=== PATIENT | female | born 1950 ===

== ENCOUNTER 2020-09-01 15:08 | Inpatient (IN) | payer MEDICARE, MEDICAID ==
[~2020-09-01] VITALS: Ht 175.3 cm; Wt 81.6 kg
[2020-09-01] MEDS ORDERED: ZYPREXA IM PRN (16:00)
[2020-09-01] MEDS ORDERED: VISTARIL IM PRN (16:00)
[2020-09-01] MEDS ORDERED: PROP15DR OP (16:51)
[2020-09-01] MEDS ORDERED: DIVA250T PO (16:51)
[2020-09-01] MEDS ORDERED: MIRT15TA94 PO (16:51)
[2020-09-01] MEDS ORDERED: ACET325T24 PO (16:51)
[2020-09-01] MEDS ORDERED: ZINC50TA42 PO (16:51)
[2020-09-01] MEDS ORDERED: FAMO-75 PO (16:51)
[2020-09-01] MEDS ORDERED: AMLO-169 PO (16:51)
[2020-09-01] MEDS ORDERED: DONE5TAB53 PO (16:51)
[2020-09-01] MEDS ORDERED: LEVO25TA4 PO (16:51)
[2020-09-01] MEDS ORDERED: ASCO500C PO (16:51)
[2020-09-01] MEDS ORDERED: CHOL500045 PO (16:51)
[2020-09-01] MEDS ORDERED: INSU100V8 SQ (16:51)
[2020-09-01] MEDS ORDERED: DULO60CA7 PO (16:51)
[2020-09-01] MEDS ORDERED: ASPI-929 PO (16:51)
--- NOTE | 2020-09-01 18:31 | NUR ---
Admission Note/Arrival to floor 1315: Patient arrived to the unit in a wheelchair with mobile security specialist and INSTRUMENTATION AND CONTROL TECHNICIAN at her side. Patient refused Vital signs initially then complied. Patient has been exit seeking and wandering the unit. Has refused to allow RN to complete an admit physical assessment. Threw a cup of water on this RN, surprised at the nonreaction she received at which time she apologized. Threatened to "Kick any male between the legs so he could not have babies." Called Several female staff a "bitch." Threw water on Cintia GANT. Demands to know why she is here, who the doctor is and why she should do what we say. This RN called patient's son/guardian to obtain consents. Admission diagnosis Delusional Disorder. Patient has a history of borderline personality disorder, alzheimers, self harm, multiple admits in the last 5 years to psyche units. Dc plan back to nursing facility, however her Guardian would like her to go to a state mental health facility. Most of admission documented using the medical record. Patient confused, poor short term memory. Psychiatrist and Hospitalist notified of patient's arrival to unit.
[2020-09-01] MEDS ORDERED: NITR100C58 PO (19:57)
[2020-09-01 20:00] VITALS: BP 142/65
[2020-09-01] MEDS ORDERED: VITAMIN D ONE (20:38)
[2020-09-01] MEDS ORDERED: ARICEPT ODT ONE (20:38)
--- NOTE | 2020-09-01 20:38 | PRM.CONS ---
CONSULTATION CONSULTATION DATE OF consult :09/01/2020. Reason for consult:Medical comanagement. HISTORY OF PRESENT ILLNESS: This is 70 years old white female with history of multiple psychiatric issues in the past presented with aggressive/violent behavior and admitted for further psychiatric evaluation and management. Internal medicine consulted for medical management. ALLERGIES: Hypertension. HOME MEDICATIONS: Aspirin 81 mg p.o. daily. Levothyroxine 25 mcg p.o. daily. Amlodipine 5 mg p.o. daily. Levothyroxine 25 mcg p.o. daily needed. Lantus to 12 units subcu daily. Depakote extended release to 50 mg p.o. daily. Famotidine 20 mg p.o. daily. Cymbalta 60 mg p.o. daily. Donepezil 5 mg p.o. daily. PAST MEDICAL HISTORY: DM2. Dementia. Hypertension. Hypothyroidism. Diabetic Neuropathy. Bipolar disorder. MDD. SOCIAL HISTORY: She denied alcohol misuse, no illicit drugs. She also denied history of smoking. FAMILY HISTORY: No history of cancer in the family. REVIEW OF SYSTEMS: - CONSTITUTIONAL: Denies weight loss, fever and chills. - HEENT: Denies changes in vision and hearing. - RESPIRATORY: no SOB and cough. - CV: Denies palpitations and CP. - GI: Denies abdominal pain, nausea, vomiting or change bowel habits. - : Denies dysuria and urinary frequency. - MSK: Denies myalgia but he has chronic joint pain. - SKIN: Denies rash and pruritus - NEUROLOGICAL: Denies headache and syncope. PHYSICAL EXAMINATION: Vital Signs Date Time Temp Pulse Resp B/P (MAP) Pulse Ox O2 Delivery O2 Flow Rate FiO2 09/01/20 19:28 98.1 96 20 142/65 97% Room Air - GENERAL:no in distress. oriented to self and time but not to place or situation.alert. - EYES: EOMI. Anicteric. - HENT: moist mucous membranes. No scleral icterus. No cervical lymphadenopathy. - LUNGS: normal air entry bilateraly, Clear to auscultation bilaterally. No accessory muscle use. - CARDIOVASCULAR: Regular rate and rhythm. No murmur. No JVD. - ABDOMEN: Soft, non-tender,distended. - EXTREMITIES: No edema. Non-tender. - NEUROLOGIC: No focal neurological deficits. CN II-XII grossly intact. - PSYCHIATRIC: Cooperative. anxious. LABORATORY DATA: Outside labs were reviewed today showed WBC of 6.6, hemoglobin 11.9, platelet count of 352. BMP showed sodium 137, potassium 3.2, chloride 107, glucose 157, BUN 13, creatinine 1.15, LFT were normal, calcium 9.6.Troponin is negative. GARIMA globin A1c 7.27. Urinalysis showed cloudy urine negative for nitrite WBC of 16-20 per field. Assessment and plan: 70 years old female with history of dementia and bipolar disorder presented with progressive behavior. #History of hypertension: Controlled. Continue home medications. #History of hypothyroidism: Will continue same dose of 25 mcg daily. TSH in a.m. #History of diabetes mellitus type 2: Hemoglobin A1c is within target for her age. Continue Lantus 12 units in the morning. We will add Metformin extended release 750 mg p.o. daily. #Diabetic neuropathy: She is on Cymbalta at home. We will hold the medication at this moment as she is on antipsychotic medication. Decision to continue Cymbalta will be deferred to the psychiatrist. LIZZIE GOLDSTEIN MD Sep 01, 2020 20:38
[2020-09-01] MEDS: VITAMIN D PO SCH (20:40)
[2020-09-01] MEDS: MACROBID PO SCH (20:40)
[2020-09-01] MEDS: PEPCID PO SCH (20:40)
[2020-09-01] MEDS: ARICEPT ODT PO SCH (20:53)
[2020-09-01] MEDS: LANTUS SQ SCH (20:56)
[2020-09-01] MEDS ORDERED: ARICEPT PO SCH (21:00)
--- NOTE | 2020-09-02 05:17 | NUR ---
pirp- P- DTO,ALTERED THOUGHT PROCESS AND ALTERATION IN MOOD I- PROVIDE SAFE AND SUPPORTIVE ENVIRONMENT,PROVIDE MEDICATION ORDERED AND Q 15 MIN. MONITORING. OBSERVED BEHAVIORS. R- PT. ORIENTED TIMES THREE. RATES DEPRESSION 7 AND ANXIETY 8. PT. ATTENDED GROUP AND INTERACTED BUT DID NOT PARTICIPATE IN GAME. ATE SNACKS. PT. ASKED STAFF WHY IS SHE HERE, WHEN CAN SHE LEAVE AND REPEATS THIS FREQUENTLY. DR. North VISITED WITH PT. BUT AN HOUR LATER SHE DID NOT REMEMBER IT. PT. WAS NOT AGGRESSIVE TONIGHT. TOOK MEDICATION ORDERED. PT. RESTING IN BED WITH EYES CLOSED AT THIS TIME. P- WILL CONTINUE TO OBSERVED BEHAVIORS. CONTINUE TO PROVIDE 1:1 INTERVENTION ALLOWING PT. TO EXPRESS THOUGHTS AND FEELINGS. GIVE SIMPLE AND CLEAR INSTRUCTION.
[2020-09-02] MEDS: LEVOTHYROXINE SODIUM PO SCH (06:24)
[2020-09-02 08:17] VITALS: BP 120/65
[2020-09-02] MEDS: NORVASC PO SCH (08:21)
[2020-09-02] MEDS: GLUCOPHAGE PO SCH ×2 (08:21→17:16)
[2020-09-02] MEDS: PEPCID PO SCH ×2 (08:21→20:17)
[2020-09-02] MEDS: MACROBID PO SCH ×2 (08:21→20:17)
[2020-09-02] MEDS: ASPIRIN EC PO SCH (08:21)
[2020-09-02 08:38] LABS: CALCIUM 9.2 mg/dL (8.4-10.5); CARBON DIOXIDE 23.2 mmol/L (20.0-32)
--- NOTE | 2020-09-02 09:41 | NUR ---
TX TEAM PT WAS SEEN BY DR. CROFT VIA TELEMED. RECEIVED ORDERS TO START SCHEDULED ZYPREXA AT HS, SEE EMR.
--- NOTE | 2020-09-02 09:47 | PCM.HP ---
History of Present Illness Hx of Present Illness 70 yo F, admitted to [facility] for worsening mood/aggression. Per report, she was aggressive at [facility], she was transferred here -- when arriving to [place], patient ran off in parking lot, grabbed staff's hair (scratched her face), wouldn't let go until she threw herself in the snow, crawled around in the snow cursing and trying to hurt staff, police called who escorted her into the hospital; pt stated that she had never been handcuffed and carried so said "let's do that." When she arrived to the [facility], she asked for a glass of water, which she threw at the nurse. She received some PRN Zyprexa, which seemed to help with her mood significantly, though after some time her irritability returned. Patient slept well overnight, has been pleasant/cooperative this morning. She does not remember any of the above events, states that everyone here is nice and she hopes that she didn't offend anyone. She thinks she is here for a "regular check in". She denies any significant depressive/manic symptoms, no SI/HI. No psychotic symptoms. No anxiety/OCD/PTSD symptoms. She is oriented to person, but disoriented to time (Sep 2020), place (thinks she's in [place]), and situa tion (thinks she's here for regular check in). E: denies T: denies D: denies Past Psych History: Prior admits: multiple in the last 5 years Past Medical History: DM2 HTN Social History: Was at [facility], admitted there Aug 24 -prior to that was at [facility] on COVID unit for 10 days, and was kicked out of another nursing facility before that Review of Systems Other Mental Status Examination: Gen: Alert, oriented to person, appears stated age, casual dress, good hygiene, good eye contact, cooperative Speech: normal rate/volume, easily understood Mood: euthymic Affect: congruent with mood Intelligence: seems to have some deficits in memory TC: denies SI/HI, denies AVH/paranoia TP: C/L/GD Insight: poor Judgment: poor Allergies: Coded Allergies: heparin (Verified Allergy, Unknown, 09/01/20) in medical record Scheduled Amlodipine Besylate (Amlodipine Besylate), 1 TAB PO DAILY, (Reported) Ascorbic Acid (Vitamin C), 500 MG PO BID, (Reported) Aspirin (Aspirin Ec), 1 TAB PO DAILY, (Reported) Cholecalciferol (Vitamin D3) (Vitamin D3), 1 TABLET PO DAILY24, (Reported) Divalproex Sodium (Depakote Er), 1 TAB PO HS, (Reported) Donepezil Hcl (Aricept), 1 TAB PO HS, (Reported) Duloxetine Hcl (Cymbalta), 1 CAP PO DAILY, (Reported) Famotidine (Pepcid), 1 TAB PO BID, (Reported) Insulin Glargine,Hum.rec.anlog (Lantus), 12 UNIT SQ DAILY24, (Reported) Levothyroxine Sodium (Levothyroxine Sodium), 1 TAB PO DAILY, (Reported) Mirtazapine (Mirtazapine), 1 TAB PO HS, (Reported) Nitrofurantoin Monohyd/M-Cryst (Macrobid 100 Mg Capsule), 1 CAP PO BID, (Reported) Zinc (Zinc), 1 TAB PO QD, (Reported) Scheduled PRN Acetaminophen (Acetaminophen), 2 TAB PO PRN PRN for as needed for mild pain, (Reported) Propylene Glycol/Peg 400 (Systane 0.3-0.4% Eye Drops), 1 DROP OP QID PRN for dry eyes, (Reported) VTE VTE Risk Total Score: 2 VTE Risk Score VTE Risk: Score 0-1 = Low Risk (Aggressive mobilization; early ambulation; no VTE prophylaxis required) Score 2: Moderate Risk (Intermittent/Pneumatic Compression Device OR Lovenox/Heparin/Coumadin) Score 3-4: High Risk (Intermittent/Pneumatic Compression Device AND Lovenox/Heparin/Coumadin) Score > or =5: Highest Risk (Intermittent/Pneumatic Compression Device AND Lovenox/Heparin/Coumadin) VTE VTE Present on Admission: No Currently receiving anticoagul: No VTE Risk Total Score: 2 Exam Vital Signs Vital Signs Date Time Temp Pulse Resp B/P (MAP) Pulse Ox O2 Delivery O2 Flow Rate FiO2 09/02/20 08:21 92 120/65 09/02/20 08:17 98.1 20 92 09/01/20 20:00 Room Air Psych/Mental Status: Other Assessment/Plan Assessment/Plan Assessment/Plan 70 yo F, unknown psych history, admitted to [facility] for worsening mood/aggression. Patient is a poor historian, though she does seem to have responded well to PRN Zyprexa with respect to her mood/aggression, so will schedule a QHS dose. Reviewed R/B/SEs of medications. PVU, agrees with plan. Russell I: Delusional Disorder Neurocognitive Disorder Plan 1) Start Zyprexa 10mg PO QHS for mood 2) Continue PRN Zyprexa/Vistaril 3) Continue behavioral management 4) Appreciate hospitalist assistance with medical issues ALBA CROFT MD Sep 02, 2020 09:47
--- NOTE | 2020-09-02 17:02 | NUR ---
PIRP P: WITHDRAWN, CONFUSION I: Q15 MIN MONITORING, ASSESS FOR DEPRESSION/ANXIETY, ASSESS FOR PSYCHOTIC SYMPTOMS, ASSIST WITH DIFFERENTIATING BETWEEN INTERNAL AND EXTERNAL REALITY, GIVE CLEAR AND SIMPLE INSTRUCTIONS, PROVIDE 1:1 TO ENCOURAGE EXPRESSION OF FEELINGS, PROVIDE TASK-ORIENTED ACTIVITIES, ALTERNATE REST/ACTIVITY, RE-ORIENT TO SURROUNDINGS NEEDED R: PT HAS FLAT AFFECT MAJORITY OF SHIFT, IS PLEASANT WITH APPROACH. HAS ISOLATED TO ROOM AND HAS NOT PARTICIPATED IN GROUP ACTIVITIES. APPETITE AND PO FLUID INTAKE HAS BEEN POOR, PT HAS PREFERRED TO REST IN BED WITH EYES CLOSED. HAS NOT EXHIBITED THREATENING OR COMBATIVE BEHAVIORS, HAS NOT BEEN EXIT-SEEKING. DENIES FEELINGS OF DEPRESSION, ANXIETY, SI/HI. NO HALLUCINATIONS OR DELUSIONS NOTED AT THIS TIME. PT IS ALERT AND ORIENTED TO SELF AND YEAR, HAS BEEN COOPERATIVE WITH HOSE BUILDER AND PHYSICAL ASSESSMENTS. P: PT STARTING SCHEDULED ZYPREXA AT HS
--- NOTE | 2020-09-02 17:11 | NUR ---
SW ASSESSMENTS: PT DID NOT WANT TO PARTICIPATE IN ASSESSMENT. PT IS INVOLUNTARY AND ON COURT PAPERS. PT IS UNABLE TO STAY ON TOPIC AND KEEPS REPEATING THE SAME THING OVER AND OVER. SW TO CONTINUE TO FOLLOW.
[2020-09-02] MEDS: ATARAX PO PRN (18:24)
--- NOTE | 2020-09-02 18:25 | NUR ---
PRN MEDICATION GIVEN PT GIVEN HYDROXYZINE FOR ANXIETY. PT IS UNABLE TO SIT STILL. STATING SHE THINKS SHE JUST GOT HERE AND HER ANXIETY IS BAD. PT STATED SHE WANTED MEDICATION FOR ANXIETY.PT STATED SHE FEELS LIKE SHE WANTS TO HIT SOMEONE IN THE FACE OR DO SOMETHING BAD LIKE ESCAPE.
--- NOTE | 2020-09-02 19:26 | NUR ---
UPDATE ON PT BEHAVIOR AFTER PRN MED GIVEN PATIENT IS STILL VERY CONFUSED AND ANXIOUS. PATIENT IS CONTINUOUSLY ASKING WHAT DATE IT IS, WHERE SHES AT, AND IF HER SON IS AWARE OF HER BEING IN HOSPITAL. PATIENT THINKS SHE IS AT [facility], PATIENT REDIRECTED AND EDUCATED ON HER ARRIVAL AT HOSPITAL AND WHY SHE IS HERE. PATIENT STATED "I FEEL LIKE I'M IN A TIME WARP AND I SHOULD BE WITH MY SON IN [place]." PATIENT REDIRECT TO ROOM DUE TO SAYING SHE IS GOING TO [place]. WILL CONTINUE TO MONITOR PATIENTS BEHAVIOR.
[2020-09-02] MEDS: ARICEPT ODT PO SCH (20:16)
[2020-09-02] MEDS: ZYPREXA ZYDIS SL SCH (20:16)
[2020-09-02] MEDS: LANTUS SQ SCH (20:16)
[2020-09-02] MEDS: VITAMIN D PO SCH (20:17)
[2020-09-02 20:29] VITALS: BP 143/61
--- NOTE | 2020-09-03 02:09 | NUR ---
pirp- P- DTO,ALTERATION IN THOUGHT PROCESS AND ALTERATION IN MOOD I-PROVIDE MEDICATION ORDERED,PROVIDE SAFE AND SUPPORTIVE ENVIRONMENT AND Q 15 MIN. MONITORING. GIVE CLEAR AND SIMPLE INSTRUCTIONS. R- PT. ASKED FREQUENTLY WHY IS SHE HERE AND STATES SHE IS WORRIED ABOUT HER AND HER SON NOT HAVING A PLACE TO LIVE. PT. WAS PROVIDED REORIENTATION BUT SOON ASKED SAME QUESTIONS AGAIN. DECLINED TO ATTEND GROUP OR EAT A SNACK. TOOK MEDICATION ORDERED. NO AGGRESSION NOTED THIS SHIFT. RESTING IN BED WITH EYES CLOSED AT THIS TIME. PT. RESTING WITH HEAD AT FOOT OF BED. P- WILL CONTINUE TO PROVIDE 1:1 INTERVENTION ALLOWING PT. TO EXPRESS THOUGHTS AND FEELINGS. GIVE CLEAR AND SIMPLE INSTRUCTIONS. ORIENT AND REDIRECT NEEDED.
[2020-09-03] MEDS: LEVOTHYROXINE SODIUM PO SCH (06:06)
[2020-09-03 07:30] VITALS: BP 114/90
[2020-09-03 07:41] LABS: APPEARANCE,URINE CLEAR (CLEAR); BILIRUBIN,URINE NEGATIVE (NEGATIVE); UA COLOR YELLOW (YELLOW); UROBILINOGEN,URINE NORMAL (NEGATIVE)
[2020-09-03] MEDS: ASPIRIN EC PO SCH (08:32)
[2020-09-03] MEDS: NORVASC PO SCH (08:32)
[2020-09-03] MEDS: PEPCID PO SCH ×2 (08:32→20:38)
[2020-09-03] MEDS: GLUCOPHAGE PO SCH ×2 (08:32→16:56)
[2020-09-03] MEDS: MACROBID PO SCH ×2 (08:32→20:37)
[2020-09-03] MEDS: ATARAX PO PRN (10:32)
--- NOTE | 2020-09-03 10:32 | NUR ---
PRN PT EXHIBITING INCREASE IN RESTLESSNESS, ANXIETY, AND INTRUSIVE BEHAVIORS. REPEATEDLY ASKING THE SAME QUESTIONS OVER AND OVER, ATTEMPTING TO OPEN LOCKED DOORS, DEMANDING STAFF TO LET HER OUT. PT IS UNABLE TO BE REDIRECTED WITH VERBALIZATION, WAS GIVEN PO PRN ATARAX AT THIS TIME.
--- NOTE | 2020-09-03 11:30 | NUR ---
FOLLOW UP PT CONT TO EXHIBIT SOME EXIT-SEEKING BEHAVIORS, BUT DOES APPEAR TO HAVE DECREASE IN RESTLESSNESS/ANXIETY. NO ACUTE DISTRESS NOTED. SITTING UP IN DAY ROOM WITH STAFF AND PEERS AT THIS TIME.
--- NOTE | 2020-09-03 15:55 | NUR ---
TELEMED PT WAS SEEN BY Delma MANZANO NP. NO NEW ORDERS RECEIVED.
--- NOTE | 2020-09-03 16:00 | PRM.PN ---
Mood: not particularly, to wonderful man Sleep: 9 hours Appetite: good Suidical thoughts: does not make statement Homicidal thoughts: no threats today Recent stressors: , lives in [facility] at intermediate Family support: son Donta more contact Aggressive Behavior: not hurting others, Ability to Perform ADL'sc: on her own, Psychotic sympstoms: perceptions not accurate Manic Symptoms: joyful, can be bright manic, then firm Living situation: was placed in snf Illicit Drug usec: na Alcoholo use: na Tobacco use: na Family,PT,Surgical,&Current HX: (1) Dementia (2) Delusional disorder (3) Alzheimer's dementia with behavioral disturbance (4) Personal history of self-harm (5) Major depressive disorder with single episode Anxity Symptoms: she wants to go home Anger/Irritablility: denies Muscle Strength & Tone: WNL Gait & Station: Normal stance/post/gait Appearance: Disheveled Attitude & Behaviour: Cooperative/Pleasant (pleasant until I tell her she will be staying with us ) Mood & Affect: Expansive, Full Orientation: Disoriented to place, Disoriented to time, Disoriented to situation Attention/Concentration: Fair attention, Poor concentration Speech: Reg rate/vol/rhyth/prosod Judgement/Insight: Poor judgement, Poor insight Thought Process: Circumferential Language: Albanian Thought content/Abnormal/Psych: Delusions Fund of Knowledge: WNL Associations: Other Constitutional: None Neurological: None Psychiatric: Psychosis [place] I: dementia delusional, mdd [place] II: borderline pd hx [place] IV: was at snf Assessment/Plan Assessment/Plan Plan 70 yo F, admitted to [facility] for worsening mood/aggression. Per report, she was aggressive at [facility], she was transferred here -- when arriving to [place], patient ran off in parking lot, grabbed staff's hair ( scratched her face), wouldn't let go until she threw herself in the snow, crawled around in the snow cursing and trying to hurt staff, police called who escorted her into the hospital; pt stated that she had never been handcuffed and carried so said "let's do that." When she arrived to the [facility], she asked for a glass of water, which she threw at the nurse. She received some PRN Zyprexa, which seemed to help with her mood significantly, though after some time her irritability returned. Patient slept well overnight, has been pleasant/cooperative this morning. She does not remember any of the above events, states that everyone here is nice and she hopes that she didn't offend anyone. She thinks she is here for a "regular check in". She denies any significant depressive/manic symptoms, no SI/HI. No psychotic symptoms. No anxiety/OCD/PTSD symptoms. She is oriented to person, but disoriented to time (Sep 2020), place (thinks she's in [place]), and situation (thinks she's here for regular check in). Hx: SNF will not take her back, she had previously scaled a fence while there, and was verbally threatening to staff, has hx of borderline pd and dementia Dr Chavez treatment plan 1) Start Zyprexa 10mg PO QHS for mood 2) Continue PRN Zyprexa/Vistaril 3) Continue behavioral management 4) Appreciate hospitalist assistance with medical issues nursing: atarax does appear helpful, a bit more easily redirected spent her day asleep, in evening asking more questions when is my son coming to pick me up, she is on a hold, son feels she needs to hospitalized or in snf, she will make reference to fighting things, patient: Good; [place], near [facility], work in the past: my most financial, beef packers, packed beef, 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[employer], [employer], retired- 5 years, 1 grown son, LIves in [place] off and on for the last 20 years, year 19 just turne a new year 1919 something 2019 sounds good, i believe fall talked to highway patrol pilot, became upset, snf would never threaten staff, remembers being at snf, nothing happened I helped with patients, hurting others what room, Vital Signs Date Time Temp Pulse Resp B/P (MAP) Pulse Ox O2 Delivery O2 Flow Rate FiO2 09/03/20 08:32 98 114/90 09/03/20 07:30 98.2 20 98 Room Air Allergies Coded Allergies Type Severity Reaction Last Updated Verified heparin Allergy Unknown 09/01/20 Yes Current Medications Medications (Trade) Dose Ordered Sig/Mary Jane PRN Reason Start Time Stop Time Status Last Admin Acetaminophen (Tylenol) 650 mg Q6H PRN PAIN 1 - 3 09/01/20 21:00 10/01/20 20:59 Amlodipine Besylate (Norvasc) 5 mg DAILY 09/02/20 09:00 10/02/20 08:59 09/03/20 08:32 Aspirin (Aspirin Ec) 81 mg DAILY 09/02/20 09:00 10/02/20 08:59 09/03/20 08:32 Cholecalciferol (Vitamin D) 2,000 unit DAILY24 09/01/20 21:00 10/01/20 20:59 09/02/20 20:17 Donepezil HCl (Aricept Odt) 5 mg HS 09/01/20 21:00 10/01/20 20:59 09/02/20 20:16 Famotidine (Pepcid) 20 mg BID 09/01/20 21:00 10/01/20 20:59 09/03/20 08:32 Hydroxyzine HCl (Atarax) 25 mg Q6HR PRN anxiety 09/01/20 16:00 10/01/20 15:59 09/03/20 10:32 Hydroxyzine HCl (Vistaril) 25 mg Q6HR PRN anxiety 09/01/20 16:00 10/01/20 15:59 Insulin Glargine (Lantus) 12 unit DAILY24 09/01/20 21:00 10/01/20 20:59 09/02/20 20:16 Levothyroxine Sodium (Levothyroxine Sodium) 25 mcg ACB 09/02/20 06:30 10/02/20 06:29 09/03/20 06:06 Metformin HCl (Glucophage) 500 mg 0730,1630 09/02/20 07:30 10/02/20 07:29 09/03/20 08:32 Nitrofurantoin Macrocrystals (Macrobid) 100 mg BID 09/01/20 21:00 10/01/20 20:59 09/03/20 08:32 Olanzapine (Zyprexa Zydis) 10 mg HS 09/02/20 21:00 10/02/20 20:59 12/17/20 20:16 Olanzapine (Zyprexa Zydis) 10 mg Q6HR PRN psychosis/anxiety 09/01/20 16:00 10/01/20 15:59 Olanzapine (Zyprexa) 10 mg Q6HR PRN psychosis/anxiety 09/01/20 16:00 10/01/20 15:59 summary: dementia appearing in odd presence, questionable whether she tries to manipulate a new response from staff, thought blocking as to her mental health warrant she does repeat questions, I'm ready to leave - after being explained she was on a hold. CONSENT: Consent was obtained by patient for telemedicine visit. Consent was obtained for the presence of staff member throughout encounter. Privacy was maintained throughout encounter PLAN: 1. CONTINUE BEHAVIORAL HEALTH MANAGEMENT. 2. CONTINUE CURRENT MEDICATIONS PRESCRIBED. STAFF AGREEABLE WITH PLAN 3. ALL PATIENT QUESTIONS ANSWERED RELATED TO MEDICATIONS, PLAN OF CARE, AND EXPECTED OUTCOMES. 4. SAFETY PLAN DISCUSSED. 5. she is currently not wanting to discuss medications- although has been taking her scheduled meds - no changes SALLY MANZANO NP Sep 03, 2020 16:00
--- NOTE | 2020-09-03 17:34 | NUR ---
PIRP P: ALTERATION IN MOOD, CONFUSION I: Q15 MIN MONITORING, ASSESS FOR DEPRESSION/ANXIETY, ASSESS FOR PSYCHOTIC SYMPTOMS, GIVE CLEAR AND SIMPLE INSTRUCTIONS, PROVIDE 1:1 TO ENCOURAGE EXPRESSION OF FEELINGS, PROVIDE TASK-ORIENTED ACTIVITIES, RE-ORIENT TO SURROUNDINGS NEEDED R: PT HAS ANXIOUS, RESTLESS AFFECT THROUGHOUT SHIFT. DENIES FEELINGS OF DEPRESSION AND ANXIETY, DESPITE EXHIBITING MULTIPLE S/S OF ANXIETY DURING SHIFT. PT HAS REQUIRED ADMIN OF PRN ANXIETY MEDICATION AND FREQUENT REDIRECTION WITH VERBALIZATION. NO HALLUCINATIONS NOTED, UNABLE TO DETERMINE IF EXHIBITING DELUSIONS D/T CONFUSION. PT INITIATES INTERACTION WITH STAFF AND PEERS, RESPONDS APPROPRIATELY TO APPROACH. PT IS EXIT-SEEKING AT TIMES AND DID THREATENING TO "FIGHT" STAFF IF SHE WAS NOT LET OUT, BUT WAS ABLE TO BE REDIRECTED. HAS NOT EXHIBITED COMBATIVE BEHAVIORS. HAS REFUSED BATHING THIS SHIFT. P: RE-ORIENT TO REALITY, USE CALM REASSURING APPROACH
[2020-09-03 19:30] VITALS: BP 129/81
[2020-09-03] MEDS: ZYPREXA ZYDIS SL SCH (20:38)
[2020-09-03] MEDS: ARICEPT ODT PO SCH (20:38)
[2020-09-03] MEDS: VITAMIN D PO SCH (20:42)
[2020-09-03] MEDS ORDERED: VITAMIN D ONE (20:42)
[2020-09-03] MEDS: LANTUS SQ SCH (20:48)
--- NOTE | 2020-09-03 21:18 | DIET.OP ---
Nutrition Asmt/Malnutrit 2-17 Actual Date of Review: Sep 03, 2020 Subjective Information: telehealth assessment - Pertinent Meds Current Medications Medications (Trade) Dose Ordered Sig/Mary Jane PRN Reason Start Time Stop Time Status Last Admin Acetaminophen (Tylenol) 650 mg Q6H PRN PAIN 1 - 3 09/01/20 21:00 10/01/20 20:59 Amlodipine Besylate (Norvasc) 5 mg DAILY 09/02/20 09:00 10/02/20 08:59 09/03/20 08:32 Aspirin (Aspirin Ec) 81 mg DAILY 09/02/20 09:00 10/02/20 08:59 09/03/20 08:32 Cholecalciferol (Vitamin D) 2,000 unit DAILY24 09/01/20 21:00 10/01/20 20:59 09/03/20 20:42 Donepezil HCl (Aricept Odt) 5 mg HS 09/01/20 21:00 10/01/20 20:59 09/03/20 20:38 Famotidine (Pepcid) 20 mg BID 09/01/20 21:00 10/01/20 20:59 09/03/20 20:38 Hydroxyzine HCl (Atarax) 25 mg Q6HR PRN anxiety 09/01/20 16:00 10/01/20 15:59 09/03/20 10:32 Hydroxyzine HCl (Vistaril) 25 mg Q6HR PRN anxiety 09/01/20 16:00 10/01/20 15:59 Insulin Glargine (Lantus) 12 unit DAILY24 09/01/20 21:00 10/01/20 20:59 09/03/20 20:48 Levothyroxine Sodium (Levothyroxine Sodium) 25 mcg ACB 09/02/20 06:30 10/02/20 06:29 09/03/20 06:06 Metformin HCl (Glucophage) 500 mg 0730,1630 09/02/20 07:30 10/02/20 07:29 09/03/20 16:56 Nitrofurantoin Macrocrystals (Macrobid) 100 mg BID 09/01/20 21:00 10/01/20 20:59 09/03/20 20:37 Olanzapine (Zyprexa Zydis) 10 mg HS 09/02/20 21:00 10/02/20 20:59 09/03/20 20:38 Olanzapine (Zyprexa Zydis) 10 mg Q6HR PRN psychosis/anxiety 09/01/20 16:00 10/01/20 15:59 Olanzapine (Zyprexa) 10 mg Q6HR PRN psychosis/anxiety 09/01/20 16:00 10/01/20 15:59 Pertinent Labs Laboratory Tests Test 09/02/20 08:11 09/02/20 08:14 09/02/20 17:08 09/02/20 20:14 Sodium Level 142 mmol/L Potassium Level 3.4 mmol/L Chloride Level 109.0 mmol/L Carbon Dioxide Level 23.2 mmol/L Glucose Level 152 mg/dL Blood Urea Nitrogen 11 mg/dL Creatinine 1.01 mg/dL Calcium Level 9.2 mg/dL Anion Gap 13.2 Estimated GFR () 65.2 Est GFR (CKD-EPI)(Non-Afr Syrian) 53.9 BUN/Creatinine Ratio 10.0 Triglycerides Level 87 mg/dL Cholesterol Level 229 mg/dL LDL Cholesterol, Calculated 151.6 VLDL Cholesterol, Calculated 17.4 HDL Cholesterol 60 mg/dL Cholesterol Ratio (LDL/HDL) 2.5 Cholesterol/HDL Ratio [id number] 25-Hydroxy Vitamin D Total 33.6 ng/mL Thyroid Stimulating Hormone (TSH) 3.606 mIU/mL Valproic Acid (Depakene) Level 11 ug/mL Rapid Plasma Reagin NONREACTIVE Bedside Glucose 125 124 116 Test 09/03/20 06:11 09/03/20 07:24 09/03/20 15:54 Urine Collection Type VOID Urine Color YELLOW Urine Appearance CLEAR Urine Bilirubin NEGATIVE MG/DL Urine Ketones 15 mg/dL Urine Specific Murphy 1.025 Urine pH 5.5 Urine Protein NEGATIVE Urine Urobilinogen NORMAL Urine Nitrate NEGATIVE Urine Leukocyte Esterase 25 /uL TRACE Urine Blood NEGATIVE Urine RBC 0-2 RBC/HPF Urine WBC 2-5 WBC/HPF Urine Squamous Epithelial Cells FEW #/HPF Urine Bacteria RARE Urine Glucose NORMAL Bedside Glucose 117 113 Katy Dodson Sep 03, 2020 21:18
--- NOTE | 2020-09-04 03:23 | NUR ---
PIRP-P- ALTERATION IN MOOD,ALTERATION IN THOUGHT PROCESS AND DTO I- PROVIDE SAFE AND SUPPORTIVE ENVIRONMENT,PROVIDE MEDICATION ORDERED,Q 15 MIN. MONITORING. GIVE CLEAR AND SIMPLE INSTRUCTION. REDIRECT NEEDED. R- PT. RATED DEPRESSION AND ANXIETY 10. ATTENDED GROUP,ATE SNACK AND HELPED STAFF GATHER THE SNACKS AND LISTENED TO PEER SING [place]PE[place] SONGS. MEMORY LOSS NOTED. NO AGGRESSION NOTED TONIGHT. PT. WANDERED IN HALLWAY AND FREQUENTLY ASKED SAME QUESTIONS REPEATEDLY. TOOK MEDICATION ORDERED. RESTING IN BED WITH EYES CLOSED AT THIS TIME. P- WILL CONTINUE TO PROVIDE 1:1 INTERVENTION ALLOWING PT. TO EXPRESS THOUGHTS AND FEELINGS.
[2020-09-04] MEDS: LEVOTHYROXINE SODIUM PO SCH (06:46)
[2020-09-04] MEDS: GLUCOPHAGE PO SCH ×2 (08:30→16:54)
--- NOTE | 2020-09-04 11:10 | DIET.OP ---
Nutrition Asmt/Malnutrit 2-17 Actual Date of Review: Sep 03, 2020 Nutritional Screening: Malnutr/Diet Consult (DM) Diagnosis: delusional disorder Pertinent Medical Hx/Surgical: DM-2, HTN, dementia, bipolar disorder, MDD, hypothyroidism. Subjective Information: telehealth assessment - pt admitted from [facility] for worsening mood/agression. BG 113-125 mg/dl the last two days. Current Diet Order/Nutrition S: 1999 ar ADA Patient /S.O: Not Indicated Pertinent Meds Current Medications Medications (Trade) Dose Ordered Sig/Mary Jane PRN Reason Start Time Stop Time Status Last Admin Acetaminophen (Tylenol) 650 mg Q6H PRN PAIN 1 - 3 09/01/20 21:00 10/01/20 20:59 Amlodipine Besylate (Norvasc) 5 mg DAILY 09/02/20 09:00 10/02/20 08:59 09/03/20 08:32 Aspirin (Aspirin Ec) 81 mg DAILY 09/02/20 09:00 10/02/20 08:59 09/03/20 08:32 Cholecalciferol (Vitamin D) 2,000 unit HS 09/04/20 21:00 10/04/20 20:59 Donepezil HCl (Aricept Odt) 5 mg HS 09/01/20 21:00 10/01/20 20:59 09/03/20 20:38 Famotidine (Pepcid) 20 mg BID 09/01/20 21:00 10/01/20 20:59 09/03/20 20:38 Hydroxyzine HCl (Atarax) 25 mg Q6HR PRN anxiety 09/01/20 16:00 10/01/20 15:59 09/03/20 10:32 Hydroxyzine HCl (Vistaril) 25 mg Q6HR PRN anxiety 09/01/20 16:00 10/01/20 15:59 Insulin Glargine (Lantus) 12 unit DAILY24 09/01/20 21:00 10/01/20 20:59 09/03/20 20:48 Levothyroxine Sodium (Levothyroxine Sodium) 25 mcg ACB 09/02/20 06:30 10/02/20 06:29 09/04/20 06:46 Metformin HCl (Glucophage) 500 mg 0730,1630 09/02/20 07:30 10/02/20 07:29 09/03/20 16:56 Nitrofurantoin Macrocrystals (Macrobid) 100 mg BID 09/01/20 21:00 10/01/20 20:59 09/03/20 20:37 Olanzapine (Zyprexa Zydis) 10 mg HS 09/02/20 21:00 10/02/20 20:59 09/03/20 20:38 Olanzapine (Zyprexa Zydis) 10 mg Q6HR PRN psychosis/anxiety 09/01/20 16:00 10/01/20 15:59 Olanzapine (Zyprexa) 10 mg Q6HR PRN psychosis/anxiety 09/01/20 16:00 10/01/20 15:59 Pertinent Labs Laboratory Tests Test 09/02/20 17:08 09/02/20 20:14 09/03/20 06:11 09/03/20 07:24 Bedside Glucose 124 116 117 Urine Collection Type VOID Urine Color YELLOW Urine Appearance CLEAR Urine Bilirubin NEGATIVE MG/DL Urine Ketones 15 mg/dL Urine Specific [place] 1.025 Urine pH 5.5 Urine Protein NEGATIVE Urine Urobilinogen NORMAL Urine Nitrate NEGATIVE Urine Leukocyte Esterase 25 /uL TRACE Urine Blood NEGATIVE Urine RBC 0-2 RBC/HPF Urine WBC 2-5 WBC/HPF Urine Squamous Epithelial Cells FEW #/HPF Urine Bacteria RARE Urine Glucose NORMAL Test 09/03/20 15:54 Bedside Glucose 113 Height (Feet): 5 Height (Inches): 9 Current Weight: 180 (estimated by staff) Weight Status: Overweight Food Allergies: No Current %PO: Negligible(<25%) BEE in Kcals: Use Current Weight Calories/Kcals/Kg: MSJ 1.2-1.4 Kcals Calculated: 3938-4297 kcal Protein: Use Current Weight Protein g/k.8-1g/kg Protein Calculated: 65-82g Fluid: ml: 9794-8017 ml or 1 ml/kcal Nutritional Problem: Nutr. Problems Present Problems: Inadequate oral intake Etiology: unknown Signs/Symptoms: 0-25% po intake not meeting needs Recommendations by RD: Add supplement feedings RD Comments: 1. Continue 2000 ar ADA diet, encouraging po intake. Small frequent meals and snacks. 2. Recommend Glucerna oral supplement TID to help meet nutritional needs. Encourage intake. 3. Continue to monitor BG and correct as indicated. 4. Recommend a weight on the chair scale. 5. RD to monitor po intake and weight. Diet education not appropriate at this time. Expected Outcomes 65-100% po intake of meals and snacks to meet estimated needs the next 3 days. discharge on consistent carb diet. Malnutrtion/Nutrition Risk Edu: No Notificiation Needed?: No Katy Dodson Sep 04, 2020 11:10
[2020-09-04 11:28] VITALS: BP 131/73
[2020-09-04] MEDS: PEPCID PO SCH ×2 (11:45→20:23)
[2020-09-04] MEDS: MACROBID PO SCH ×2 (11:45→20:23)
[2020-09-04] MEDS: ASPIRIN EC PO SCH (11:45)
[2020-09-04] MEDS: NORVASC PO SCH (11:45)
--- NOTE | 2020-09-04 12:18 | PRM.PN ---
Mood: seems to got tired here, Sleep: close to 10 hours good rest Appetite: good Suidical thoughts: denies Homicidal thoughts: denies Recent stressors: denies tired but not stressed Family support: do not know if talked, family is good Aggressive Behavior: denies Ability to Perform ADL'sc: dressed self feels her gait is well Psychotic sympstoms: denies Manic Symptoms: slept in today versus bright energy Living situation: I am at school I don't know where I am at Illicit Drug usec: na Alcoholo use: na Tobacco use: na Family,PT,Surgical,&Current HX: (1) Dementia (2) Delusional disorder (3) Major depressive disorder with single episode Anxity Symptoms: denies Anger/Irritablility: denies Muscle Strength & Tone: WNL Gait & Station: WNL Appearance: Disheveled Attitude & Behaviour: Cooperative/Pleasant Mood & Affect: Full Orientation: Disoriented to place, Disoriented to time, Disoriented to situation Attention/Concentration: Fair attention, Fair concentration Speech: Reg rate/vol/rhyth/prosod Judgement/Insight: Poor judgement, Poor insight Thought Process: Circumferential Language: Prydeinig Thought content/Abnormal/Psych: Delusions Fund of Knowledge: WNL Associations: Other Constitutional: None Neurological: None Psychiatric: Psychosis [place] I: dementia, delusional, mdd [place] II: pd, hx borderline features [place] IV: discharge to snf Assessment/Plan Assessment/Plan Plan nursing: she did not want to get up for breakfast she is just getting out of bed now, she is pleasant this morning, will ask repetitive questions, patient: year 2020, I hope I don't miss Rebecca twice, one divorce, the other marriage, got to busy let it go 1 son brothers/sisters 2 of each, i am open to trying dementia medications life full name can list long name., Vital Signs Date Time Temp Pulse Resp B/P (MAP) Pulse Ox O2 Delivery O2 Flow Rate FiO2 09/04/20 11:45 86 131/73 09/04/20 11:28 98.1 18 97 Room Air Allergies Coded Allergies Type Severity Reaction Last Updated Verified heparin Allergy Unknown 09/01/20 Yes Current Medications Medications (Trade) Dose Ordered Sig/Mary Jane PRN Reason Start Time Stop Time Status Last Admin Acetaminophen (Tylenol) 650 mg Q6H PRN PAIN 1 - 3 09/01/20 21:00 10/01/20 20:59 Amlodipine Besylate (Norvasc) 5 mg DAILY 09/02/20 09:00 10/02/20 08:59 09/04/20 11:45 Aspirin (Aspirin Ec) 81 mg DAILY 09/02/20 09:00 10/02/20 08:59 09/04/20 11:45 Cholecalciferol (Vitamin D) 2,000 unit HS 09/04/20 21:00 10/04/20 20:59 Donepezil HCl (Aricept Odt) 5 mg HS 09/01/20 21:00 10/01/20 20:59 09/03/20 20:38 Famotidine (Pepcid) 20 mg BID 09/01/20 21:00 10/01/20 20:59 09/04/20 11:45 Hydroxyzine HCl (Atarax) 25 mg Q6HR PRN anxiety 09/01/20 16:00 10/01/20 15:59 09/03/20 10:32 Hydroxyzine HCl (Vistaril) 25 mg Q6HR PRN anxiety 09/01/20 16:00 10/01/20 15:59 Insulin Glargine (Lantus) 12 unit DAILY24 09/01/20 21:00 10/01/20 20:59 09/03/20 20:48 Levothyroxine Sodium (Levothyroxine Sodium) 25 mcg ACB 09/02/20 06:30 10/02/20 06:29 09/04/20 06:46 Metformin HCl (Glucophage) 500 mg 0730,1630 09/02/20 07:30 10/02/20 07:29 09/03/20 16:56 Nitrofurantoin Macrocrystals (Macrobid) 100 mg BID 09/01/20 21:00 10/01/20 20:59 09/04/20 11:45 Olanzapine (Zyprexa Zydis) 10 mg HS 09/02/20 21:00 10/02/20 20:59 09/03/20 20:38 Olanzapine (Zyprexa Zydis) 10 mg Q6HR PRN psychosis/anxiety 09/01/20 16:00 10/01/20 15:59 Olanzapine (Zyprexa) 10 mg Q6HR PRN psychosis/anxiety 09/01/20 16:00 10/01/20 15:59 summary: dementia present, not oriented, amnesia to events leading to hospitalization, believes she is in a school then looks around and decides she is wrong, her hair is tousled white, she has bright smile says staff are good to her CONSENT: Consent was obtained by patient for telemedicine visit. Consent was obtained for the presence of staff member throughout encounter. Privacy was ma intained throughout encounter PLAN: 1. CONTINUE BEHAVIORAL HEALTH MANAGEMENT. 2. CONTINUE CURRENT MEDICATIONS PRESCRIBED. STAFF AGREEABLE WITH PLAN 3. ALL PATIENT QUESTIONS ANSWERED RELATED TO MEDICATIONS, PLAN OF CARE, AND EXPECTED OUTCOMES. 4. SAFETY PLAN DISCUSSED. 5. Increase Aricept to 10mg po daily 6. Add Namenda 5mg daily SALLY MANZANO NP Sep 04, 2020 12:18
[2020-09-04] MEDS: NAMENDA PO SCH ×2 (13:17→20:23)
--- NOTE | 2020-09-04 13:17 | NUR ---
NEW ORDER NAMENDA 5MG PO GIVEN AT THIS TIME PER NEW ORDER. PT TOOK WITHOUT DIFFICULTY.
[2020-09-04] MEDS: ZYPREXA ZYDIS SL PRN ×2 (15:37→16:12)
[2020-09-04 16:04] VITALS: BP 138/71
--- NOTE | 2020-09-04 16:07 | NUR ---
Fall: PATIENT FELL IN HALLWAY AT THE ENTRANCE OF THE MEDICATION ROOM. SHE ROLLED FROM HER BOTTOM ROLLING BACKWARD ON TO HER BACK. NO VISIBLE BRUISES AT TIME OF FALL. PATIENT CONTINUES TO BE ABLE TO AMBULATE WITHOUT ANY OBVIOUS SIGNS OF INJURY. HIGHWAY PAINTER MEGHANA NOTIFIED AND DR MUJICA. VITAL SIGNS TAKEN BP 138/71, P 121, R 22, O2SAT 97%. PATIENT HAS BEEN AGITATED TODAY AND HAS DEMANDED TO BE LET OFF THE UNIT. SHE HAS MADE COMMENTS "JUST LET ME ", "WILL YOU PLEASE KILL ME!". PATIENT IS PARANOID AND THINKS STAFF IS AGAINST HER. SHE POKED THIS NURSE IN THE FACE WITH HER LONG FINGERNAIL ALMOST BREAKING THE SKIN.
--- NOTE | 2020-09-04 17:03 | NUR ---
PELVIS XRAY: PATIENT REFUSED PELVIS XRAY POST FALL. WILL ATTEMPT TOMORROW AGAIN
--- NOTE | 2020-09-04 17:05 | NUR ---
PIRP: P: ALTERATION IN MOOD, ALTERATION IN THOUGHT PROCESS I: PROVIDE MEDICATIONS ORDERED BY PHYSICIAN. ENCOURAGE ATTENDANCE AND PARTICIPATION OF ALL GROUPS. ALLOW PATIENT TO VOICE FEELINGS AND CONCERNS. PROVIDE SAFE ENVIRONMENT. ASSISTED PATIENT FOR PREVENTION OF FALLS, SUPPLY PATIENT WITH NONSLIP SOCKS. MONITOR PATIENT FOR PSYCHOTIC SYMPTOMS AND REPORT TO PHYSICIANS. ASSESS PATIENT FOR DEPRESSION, ANXIETY AND SUICIDAL THOUGHTS. R: PATIENT HAS TAKEN MEDICATIONS TODAY. SHE IS CONFUSED AND DISORIENTED, PARANOID, AGITATED AND HAS REQUIRED ZYPREXA 10 MG SL FOR AGITATION. SHE HAS ACTIVELY GONE AT STAFF SCRATCHING AND HITTING, MAKING THREATENING COMMENTS "IM GONNA KILL YOU" "I HOPE YOU " PATIENT BANGED ON WINDOWS OF NURSES STATION AND SEAT COVER CUTTER WAS CALLED AND SECURITY HAD TO COME ON UNIT. PATIENT HAS NOT EATEN OR DRANK WELL TODAY. SHE HAS NOT BEEN ABLE TO RECALL EVENTS FROM A FEW MINUTES PRIOR. P: CONTINUE CURRENT PLAN OF CARE.
--- NOTE | 2020-09-04 17:22 | NUR ---
ZYPREXA ZYDIS PT REFUSED ZYPREXA ZYDIS AT 1537. SAID SHE IS NOT TAKING ANYTHING FROM THAT WOMAN. RN TRIED TO PUT IN A VERY LITTLE BIT OF SODA AND PT SAID SHE WAS NOT TAKING THAT EITHER. DOESN'T TRUST THAT NO MEDICINE IS IN THERE. 1600 PT CAME UP TO THE WINDOW AND ASKED WHAT SHE HAD TO DO TO GET OUT OF HERE. RN SAID TO START TAKING HER MEDICINE. PT AGREED TO TAKE HER MEDICINE. SUPERVISOR LEAD REFINERY WENT AND GOT THE MEDICINE. PT THEN REFUSED. PT THEN BEGAN ASKING FOR WATER. MEDICATION WAS MIXED IN A VERY LITTLE BIT OF WATER. PT COMPLAINED OF COLOR OF WATER. EXPLAINED THAT IS THE WAY IT COMES OUT. PT DID TAKE AND DRINK WATER. DID DRINK MORE WATER.
--- NOTE | 2020-09-04 19:21 | NUR ---
RADIOLOGY IN FOR X RAY OF PELVIS. PATIENT COOPERATIVE. PATIENT DENIES DISCOMFORT, EDUCATED PATIENT NEED FOR X RAY OF PELVIS DUE TO FALL TODAY, PATIENT DID NOT REMEMBER FALLING.
--- NOTE | 2020-09-04 19:42 | DIREP ---
PROCEDURE:XRAY PELVIS 1-2 VWS COMPARISON:None. INDICATIONS:fall complains of pain FINDINGS: BONES:Normal. JOINTS:Mild bilateral hip arthrosis. SOFT TISSUES:Normal. OTHER:Probable calcified uterine fibroids. CONCLUSION:No acute bony abnormality. Dictated by: Rosette Duke MD on 09/04/2020 at 07:39 PM
[2020-09-04 19:55] VITALS: BP 120/72
[2020-09-04] MEDS: ARICEPT ODT PO SCH (20:22)
[2020-09-04] MEDS: ZYPREXA ZYDIS SL SCH (20:22)
[2020-09-04] MEDS: VITAMIN D PO SCH (20:23)
[2020-09-04] MEDS: LANTUS SQ SCH (20:26)
[2020-09-04] MEDS: TYLENOL PO PRN (22:24)
--- NOTE | 2020-09-04 22:27 | NUR ---
tylenol 650 mg po given for leg cramps
--- NOTE | 2020-09-05 01:04 | NUR ---
PIRP- P- ALTERATION IN MOOD,ALTERATION IN THOUGHT PROCESS AND DTO I- PROVIDE SAFE AND SUPPORTIVE ENVIRONMENT,PROVIDE MEDICATION ORDERED. Q 15 MIN. MONITORING. R- PT. ORIENTED TO NAME AND YEAR BUT NOT MONTH. ATTENDED GROUP, ATE SNACKS AND SANG [employer] WITH STAFF AND PEERS. PT. SUGGESTED SOME OF THE SONGS. INITIATED INTERACTION. TOOK MEDICATION ORDERED. PT. HAS PLEASANT AFFECT BUT FORGETFULNESS. NO DTO NOTED THIS SHIFT. RESTING IN BED WITH EYES CLOSED AT THIS TIME. P- WILL CONTINUE TO PROVIDE 1:1 INTERVENTION ALLOWING PT. TO EXPRESS THOUGHTS AND FEELINGS. OBSERVE FOR S/S OF AGGRESSION. REDIRECT NEEDED. GIVE CLEAR AND SIMPLE INSTRUCTIONS.
[2020-09-05] MEDS: LEVOTHYROXINE SODIUM PO SCH (06:20)
[2020-09-05 07:31] VITALS: BP 133/77
[2020-09-05] MEDS: ATARAX PO PRN ×2 (09:42→22:07)
[2020-09-05] MEDS: ASPIRIN EC PO SCH (09:42)
[2020-09-05] MEDS: PEPCID PO SCH ×2 (09:42→20:22)
[2020-09-05] MEDS: MACROBID PO SCH ×2 (09:42→20:22)
[2020-09-05] MEDS: NORVASC PO SCH (09:42)
[2020-09-05] MEDS: GLUCOPHAGE PO SCH ×2 (09:42→16:24)
[2020-09-05] MEDS: NAMENDA PO SCH ×2 (09:42→20:22)
--- NOTE | 2020-09-05 09:45 | NUR ---
BEHAVIOR PT IS WALKING HALLS AND STATING SHE WANTS OUT OF HERE. LOOKING FOR THE EXIT. SAYING THAT WE CAN NOT KEEP HER HERE. DOES NOT WANT TO COME AND SIT WITH OTHERS IN THE DAY ROOM. STATES IF SHE CAN NOT LEAVE RIGHT NOW THEN SHE WILL WAIT IN HER ROOM. ATARAX 25MG PO GIVEN TO WITH MORNING MEDS DUE TO ANXIETY.
--- NOTE | 2020-09-05 10:56 | NUR ---
TELEMED PT WAS SEEN BY Delma MANZANO NP. RECEIVED ORDERS TO START DEPAKOTE BID, SEE EMR. PT AGREEABLE WITH PLAN.
--- NOTE | 2020-09-05 10:59 | PRM.PN ---
Mood: says doing well Sleep: 7.5 hours Appetite: good Suidical thoughts: denies Homicidal thoughts: denies Recent stressors: not complaining today, Family support: son Aggressive Behavior: she reports not recalling yesterday- scratched staff Ability to Perform ADL'sc: on her own, not easily convinced to take shower though Psychotic sympstoms: perceptions Manic Symptoms: argumentative and verbally aggressive yesterday Living situation: between placements Illicit Drug usec: na Alcoholo use: na Tobacco use: na Family,PT,Surgical,&Current HX: (1) Major depressive disorder with single episode (2) Delusional disorder (3) Dementia (4) Personal history of self-harm Anxity Symptoms: declines today Anger/Irritablility: present yesterday Muscle Strength & Tone: WNL Gait & Station: Normal stance/post/gait Appearance: Well groomed/hygience Attitude & Behaviour: Cooperative/Pleasant Mood & Affect: Full Orientation: Disoriented to situation Attention/Concentration: Fair attention, Fair concentration Speech: Reg rate/vol/rhyth/prosod Judgement/Insight: Poor judgement, Poor insight Thought Process: Tangential Language: Georgian Thought content/Abnormal/Psych: A/V [place], Delusions Fund of Knowledge: WNL Associations: Other Constitutional: None Neurological: None Psychiatric: Psychosis [place] I: dementia, delusional, mdd [place] II: personal hx sib [place] IV: between placements Assessment/Plan Assessment/Plan Plan nursing: participated in activity yesterday? she made comments "just kill me and let me , or saying she would kill them" , hit window in day area, scratched RN, she had a fall yesterday afternoon "this is bullshit" not appreciating routine of eating in the day area, she stayed in bed late and then returned to her room after eating son reports olanzapine had been helpful, she was hospitalized at [place] [id number], then not taking meds and had covid, hx was on depakote, patient: reports not recalling yesterday, asks what happened, denies pain today from fall Vital Signs Date Time Temp Pulse Resp B/P (MAP) Pulse Ox O2 Delivery O2 Flow Rate FiO2 09/05/20 09:42 86 133/77 09/05/20 07:31 98.1 20 98 Room Air Allergies Coded Allergies Type Severity Reaction Last Updated Verified heparin Allergy Unknown 09/01/20 Yes Current Medications Medications (Trade) Dose Ordered Sig/Mary Jane PRN Reason Start Time Stop Time Status Last Admin Cholecalciferol (Vitamin D) 2,000 unit HS 09/04/20 21:00 10/04/20 20:59 09/04/20 20:23 Donepezil HCl (Aricept Odt) 10 mg HS 09/04/20 21:00 10/04/20 20:59 09/04/20 20:22 Miscellaneous Medication (Namenda) 5 mg BID 09/04/20 12:30 10/04/20 12:29 09/05/20 09:42 Olanzapine (Zyprexa Zydis) 10 mg HS 09/02/20 21:00 10/02/20 20:59 09/04/20 20:22 summary: she is very agile for her age, tosses herself in bed almost like a teen, she agrees to below medication restart says cannot recall yesterday, very pleasant with me, jokes about spending much time on her hair - she will often decline to shower, dresses herself, toilets herself CONSENT: Consent was obtained by patient for telemedicine visit. Consent was obtained for the presence of staff member throughout encounter. Privacy was maintained throughout encounter PLAN: 1. CONTINUE BEHAVIORAL HEALTH MANAGEMENT. 2. CONTINUE CURRENT MEDICATIONS PRESCRIBED. STAFF AGREEABLE WITH PLAN 3. ALL PATIENT QUESTIONS ANSWERED RELATED TO MEDICATIONS, PLAN OF CARE, AND EXPECTED OUTCOMES. 4. SAFETY PLAN DISCUSSED. 5. restart depakote 250mg po bid, anger reactions - aggression SALLY MANZANO NP Sep 05, 2020 10:59
[2020-09-05] MEDS: DEPAKOTE ER PO SCH ×2 (11:33→20:23)
--- NOTE | 2020-09-05 11:35 | NUR ---
NEW ORDER NEW ORDER RECEIVED TO GIVE DEPAKOTE ER 250MG PO. FIRST DOSE GIVE AT THIS TIME. PT IS LYING IN BED QUIETLY. WAKES TO NAME. EXPLAINED THAT I HAD A MEDICATION FOR HER AND SHE STATED THANK YOU AND TOOK IF IT EASILY. PT HAS NO FURTHER TALK OF WANTING TO LEAVE. JUST ASKS IF HER SON KNOWS WHERE SHE IS. STAFF EXPLAINS TO HER SHE TALKS TO HER SON EVERYDAY. THAT HE DOES KNOW HERE AND KNOW IS GETTING HELP. CONTINUES TO COME TO DESK ASK FOR HELP FINDING GLASSES, THEN ASKING WHERE HER ROOM IS. REORIENTATION EACH TIME
--- NOTE | 2020-09-05 15:30 | NUR ---
PIRP P: ALTERATION IN MOOD, CONFUSION I: Q15 MIN MONITORING, ASSESS FOR DEPRESSION/ANXIETY, ALTERNATE REST/ACTIVITY, ASSESS FOR PSYCHOTIC SYMPTOMS, GIVE CLEAR AND SIMPLE INSTRUCTIONS, PROVIDE 1:1 TO ENCOURAGE EXPRESSION OF FEELINGS, PROVIDE TASK-ORIENTED ACTIVITIES, RE-ORIENT TO SURROUNDINGS NEEDED, PROVIDE SAFE AND SUPPORTIVE ENVIRONMENT R: PT HAS ANXIOUS AFFECT MAJORITY OF SHIFT, ISOLATES TO ROOM EXCEPT FOR MEALS AND SPORADICALLY LOOKING FOR HER SON AND HER GLASSES. PT HAS BEEN ABLE TO BE REDIRECTED WITH VERBALIZATION WITHOUT DIFFICULTY, HAS NOT REQUIRED ADMIN OF PRN MEDICATIONS. DENIES FEELINGS OF DEPRESSION AND ANXIETY, BUT DOES APPEAR TO BE ANXIOUS/RESTLESS. NO HALLUCINATIONS NOTED, UNABLE TO DETERMINE IF DELUSIONAL. PT IS ALERT AND ORIENTED TO SELF, REQUIRES FREQUENT RE-ORIENTATION TO SURROUNDINGS/REALITY. PT HAS NOT EXHIBITED THREATENING OR COMBATIVE BEHAVIORS THIS SHIFT. HAS TAKEN MEDICATIONS ORDERED, BUT HAS NOT PARTICIPATED IN GROUP ACTIVITIES OR BEEN COOPERATIVE WITH BATHING/SHOWERING. P: ENCOURAGE PARTICIPATION IN OWN SELF-CARE, USE CALM REASSURING APPROACH
[2020-09-05 19:29] VITALS: BP 133/83
--- NOTE | 2020-09-05 20:15 | NUR ---
BEHAVIOR PATIENT HEARD KNOCKING LOUDLY ON HER DOOR AND YELLING FOR HELP, PATIENT HAD SHUT HER DOOR AND COULD NOT GET IT OPEN, PATIENT STATING "YALL ARE HOLDING ME PRISONER HERE, I COULD NOT GET OUT, YOU HAD THE DOOR LOCKED, DEMEANING STAFF. DEMONSTRATED HOW TO OPEN BEDROOM DOOR, PATIENT RETURN DEMONSTRATED AND VOICED SHE WAS NOT OPENING DOOR THE RIGHT WAY SHE WAS NOT SLIDING DOWN THE HANDLE WAS ONLY PULLING ON IT. PATIENT DEMANDING TO KNOW WHY SHE IS HERE, WHO AUTHORIZED HER TO BE HERE, NO ONE IS HELPING HER, SHE HEARD SHE HAD BEEN COMMITTED. DISCUSSED COURT COMMITMENT PAPERWORK AND PATIENT WANTED SEE PAPERWORK. TOOK PATIENT TO CONFERENCE ROOM FOR ROOM TO SHOW HER HER PAPERWORK AND FOR PRIVACY. DISCUSSED HER BEHAVIORS THAT LED UP TO COMING HERE AND COURT PAPERS. PATIENT CALMED DOWN. PATIENT ASKED WHAT SHE WAS DOING TO GET HER COMMITTED, ALSO REVIEWED HER BEHAVIORS PREVIOUS DAY. PATIENT VOICES SHE DOES NOT REMEMBER ANY OF THIS, EDUCATED ON DIAGNOSIS TO INCLUDE DEMENTIA. PATIENT LISTENED. PATIENT GAVE A QUE WORD OF "GOOFY" FOR NURSE TO TELL HER WHEN SHE HAS THESES BEHAVIORS TO HER SHE IS ACTING GOOFY AND THIS IS NOT HER NORMAL ACTIONS, VOICES SHE IS USUALLY QUIET AND PEACEFUL. PATIENT SHARED THAT HER MOTHER DIES WHEN SHE WAS 4 YEARS OLD, LIP QUIVERED AT THAT TIME. Addendum: 09/06/20 at 0206 by GHISLAINE LaboyBHU RADHA DISCUSSED PATIENT HAD A SPONGE BATH AT BEGINNING OF SHIFT, REQUIRED ENCOURAGING, SHE REFUSED HER HAIR TO BE WASHED, THIS NURSE ASSISTED HER WITH HER BATH . PATIENT VOICED SHE DID REMEMBER TAKING A BATH BUT ALL BY HERSELF.
[2020-09-05] MEDS: ARICEPT ODT PO SCH (20:22)
[2020-09-05] MEDS: VITAMIN D PO SCH (20:23)
[2020-09-05] MEDS: ZYPREXA ZYDIS SL SCH (20:23)
[2020-09-05] MEDS: LANTUS SQ SCH (20:31)
--- NOTE | 2020-09-05 22:15 | NUR ---
Anxiety pt.is exhibiting some anxiety,very restless coming out of room and asking lots of questions about what is going on and why she is here in the hospital pt.becomes anxious when attempting to explain things to here ambulates up and down boateng rates her anxiety around a 4, pt receives Atarax at this time will cont.to monitor pt.
--- NOTE | 2020-09-06 01:00 | NUR ---
Reassessment pt. is resting quietly with eyes closed resp.even non-labored no acute distress noted,will cont. to monitor
--- NOTE | 2020-09-06 04:04 | NUR ---
P.I.R.P. P. ALTERATION IN THOUGHT PROCESS/CONFUSION/FALLS I. PROVIDE EVERY 15 MINUTE CHECKS, PROVIDE SAFE ENVIRONMENT, PROVIDE MEDICATIONS ORDERED PER MD. PROVIDE TASK ORIENTED GROUP ACTIVITY AND ENCOURAGE PARTICIPATION, WHEN PATIENT IS AGITATED APPROACH IN CALM MANNER, RE ORIENT AND RE DIRECT NEEDED. GIVE SIMPLE INSTRUCTIONS AND EDUCATION. ENCOURAGE VOICING CAUSES OR TRIGGERS OF ANXIETY OR AGITATION. R. PATIENT IS ALERT, CONFUSED OF SITUATION, PLACE AND TIME. PATIENT ALLOWED SPONGE BATHING WITH ENCOURAGEMENT AND TEACHING, ATTENDED GROUP ACTIVITY,BECAME IRRITABLE, CURSING AND CONFRONTATIONAL/DEFENSIVE X 1 THIS SHIFT. PATIENT AGREED SHE WOULD LIKE STAFF TO SAY THE WORD, GOOFY TO HER WHEN SHE IS HAVING BEHAVIORS OF ANXIETY, AGITATION, PHYSICAL THREATENING OR EMOTIONAL EXAMPLE DEMEANING STAFF. PATIENT IS CONFUSED AND FORGETFUL. WAS ABLE TO RE DIRECT AFTER ABOUT 10 MINUTES. HAVE REINTERATED REASON SHE IS AT [facility] AND HER BEHAVIORS THAT HAD BEEN REPORTED. PATIENT ASKS SAME QUESTION WHY DID SHE HAVE TO COME HERE, OVER AND OVER AND GETS SOME UPSET EACH TIME. EDUCATED PATIENT AND SAME AND PATIENT WASTHEN ABLE TO LAY DOWN AND REST. PATIENT DID REQUIRE ATARAX NEEDED X 1 THIS SHIFT. P. CONTINUE CURRENT PLAN OF CARE. Addendum: 09/06/20 at 0516 by Kirstin Stephens RN-Ricki GARCIA NO FALLS THIS SHIFT, SAFETY TEACHINGS CONTINUED.
[2020-09-06] MEDS: LEVOTHYROXINE SODIUM PO SCH (06:01)
[2020-09-06] MEDS: GLUCOPHAGE PO SCH ×3 (08:53→16:30)
[2020-09-06 08:55] VITALS: BP 111/58
[2020-09-06] MEDS: NORVASC PO SCH (09:00)
[2020-09-06] MEDS: PEPCID PO SCH ×2 (09:00→20:08)
[2020-09-06] MEDS: ASPIRIN EC PO SCH (10:39)
[2020-09-06] MEDS: NAMENDA PO SCH ×2 (10:39→20:07)
[2020-09-06] MEDS: DEPAKOTE ER PO SCH ×2 (10:39→20:08)
[2020-09-06] MEDS: MACROBID PO SCH ×2 (10:40→20:08)
--- NOTE | 2020-09-06 11:32 | PRM.PN ---
Mood: denies Sleep: 8.5 hours, Appetite: good Suidical thoughts: denies Homicidal thoughts: denies Recent stressors: talked to Donta yesterday Family support: son Aggressive Behavior: not present in 24hours Ability to Perform ADL'sc: staff prompting- toilets self, Psychotic sympstoms: 2020 we just turned, president jazmin Manic Symptoms: I think I am an Living situation: between placements Family,PT,Surgical,&Current HX: (1) Delusional disorder (2) Dementia (3) Major depressive disorder with single episode Anxity Symptoms: denies Anger/Irritablility: denies Constitutional: None Neurological: None Psychiatric: Psychosis [place] I: delusional, dementia, mdd [employer] II: pd, sib Assessment/Plan Assessment/Plan Plan nursing: oriented- she forgets she is in [place], at [facility], repetitively says 2020, believing its the new year aggressive - not been violent to staff, agitated in evening, due to door knob, she thought she was locked in her room, nursing staff able to reason with her patient: taking a short nap, I think I had breakfast, admits she is hungry now depressed not I am just sleep no pain, I feel good Vital Signs Date Time Temp Pulse Resp B/P (MAP) Pulse Ox O2 Delivery O2 Flow Rate FiO2 09/06/20 19:33 98.2 94 18 138/77 (97) 100 Room Air Allergies Coded Allergies Type Severity Reaction Last Updated Verified heparin Allergy Unknown 09/01/20 Yes Current Medications Medications (Trade) Dose Ordered Sig/Mary Jane PRN Reason Start Time Stop Time Status Last Admin Cholecalciferol (Vitamin D) 2,000 unit HS 09/04/20 21:00 10/04/20 20:59 09/06/20 20:08 Divalproex Sodium (Depakote Er) 250 mg BID 09/05/20 11:30 10/15/20 21:00 09/06/20 20:08 Donepezil HCl (Aricept Odt) 10 mg HS 09/04/20 21:00 10/04/20 20:59 09/06/20 20:09 Miscellaneous Medication (Namenda) 5 mg BID 09/04/20 12:30 10/04/20 12:29 12/21/20 20:07 summary: February is pleasant, she reports looking forward to eating lunch today, she does not recall breakfast but simply says ok when staff tell her she declined breakfast as she wanted to sleep CONSENT: Consent was obtained by patient for telemedicine visit. Consent was obtained for the presence of staff member throughout encounter. Privacy was maintained throughout encounter PLAN: 1. CONTINUE BEHAVIORAL HEALTH MANAGEMENT. 2. CONTINUE CURRENT MEDICATIONS PRESCRIBED. STAFF AGREEABLE WITH PLAN 3. ALL PATIENT QUESTIONS ANSWERED RELATED TO MEDICATIONS, PLAN OF CARE, AND EXPECTED OUTCOMES. 4. SAFETY PLAN DISCUSSED. 5. valproic level cmp and cbc tomorrow repeat ekg as she has been back on antipsychotic SALLY MANZANO NP Sep 06, 2020 11:32
[2020-09-06] MEDS: ZYPREXA ZYDIS SL PRN (12:25)
--- NOTE | 2020-09-06 12:42 | NUR ---
PRN PATIENT WANDERING AND QUESTIONING "WHAT DO I DO NOW" APPEARS TO BE AGITATED. CONFUSED AND ANXIOUS BEHAVIOR. ZYPREXA 10 MG PO PRN GIVEN FOR MENTIONED BEHAVIORS. Addendum: 09/07/20 at 1716 by RADHA ANTONY RN FOLLOW UP FOR PRN MEDICATION WAS NOT EFFECTIVE AND PATIENT REQUIRED ATARAX PRN. PATRICK MANZANO BUSINESS OBJECTS REPORT DEVELOPER UPDATED ON PATIENT CONDITION
--- NOTE | 2020-09-06 14:00 | NUR ---
FOLLOW UP PRN: PATIENT PRN WAS EFFECTIVE AND PATIENT RESPONDED WELL. SHE WAS ABLE TO RELAX AND WENT AND TOOK A NAP.
--- NOTE | 2020-09-06 16:42 | NUR ---
PIRP P: ALTERATION IN MOOD, CONFUSION I: Q15 MIN MONITORING, ASSESS FOR DEPRESSION/ANXIETY, ALTERNATE REST/ACTIVITY, GIVE CLEAR AND SIMPLE INSTRUCTIONS, PROVIDE 1:1 TO ENCOURAGE EXPRESSION OF FEELINGS, REDIRECT WITH VERBALIZATION, PROVIDE TASK-ORIENTED ACTIVITIES, RE-ORIENT TO SURROUNDINGS NEEDED, PROVIDE SAFE AND SUPPORTIVE ENVIRONMENT R: PT HAS ISOLATED TO ROOM MAJORITY OF SHIFT, SPORADICALLY WANDERS DOWN DURAN AND INTO DAY ROOM. PT IS ALERT AND ORIENTED TO SELF, REQUIRES FREQUENT RE-ORIENTATION TO SURROUNDINGS. DENIES FEELINGS OF DEPRESSION AND ANXIETY, BUT DID RECEIVE PRN ZYPREXA AT APPROX NOON FOR INCREASE IN ANXIETY/RESTLESSNESS. PT APPEARED TO RESPOND APPROPRIATELY TO MEDICATION ADMINISTRATION. DENIES SUICIDAL/HOMICIDAL IDEATION, NO HALLUCINATIONS OR DELUSIONS NOTED, DOES NOT APPEAR TO RESPOND TO INTERNAL STIMULI. PT HAS NOT PARTICIPATED IN GROUP ACTIVITIES THIS SHIFT DESPITE MULTIPLE ATTEMPTS MADE BY STAFF TO ENCOURAGE PARTICIPATION. HAS NOT EXHIBITED THREATENING OR COMBATIVE BEHAVIORS AND HAS TAKEN MEDICATIONS ORDERED. P: RE-ORIENT TO SURROUNDINGS, USE CALM REASSURING APPROACH, ENCOURAGE PARTICIPATION IN GROUPS
[2020-09-06 19:33] VITALS: BP 138/77
[2020-09-06] MEDS: ZYPREXA ZYDIS SL SCH (20:08)
[2020-09-06] MEDS: VITAMIN D PO SCH (20:08)
[2020-09-06] MEDS: ARICEPT ODT PO SCH (20:09)
[2020-09-06] MEDS: LANTUS SQ SCH (20:39)
--- NOTE | 2020-09-07 06:04 | NUR ---
pirp- P- ALTERATION IN THOUGHT PROCESS AND FALL RISK I- PROVIDE MEDICATION ORDERED,PROVIDE SAFE AND SUPPORTIVE ENVIRONMENT. Q 15 MIN. MONITORING. GIVE CLEAR AND SIMPLE INSTRUCTIONS. R- PT. DENIED DEPRESSION AND ANXIETY. ATTENDED GROUP,ATE SANACK AND PARTICIPATED IN EXERCISES AND DAILY GOAL ACCOMPLISHMENT. ORIENTED TO NAME AND YEAR NOT MONTH. PLEASANT AFFECT. TOOK MEDICATION ORDERED. WEARING RED NON SKID SOCKS . IT EXHIBITED FORGETFULNESS. REDIRECTED AND REORIENTED NEEDED. RESTING IN BED WITH EYES CLOSED AT THIS TIME. P- WILL CONTINUE TO PROVIDE CLEAR AND SIMPLE INSTRUCTIONS, PROVIDE MEDICATION ORDERED. PROVIDE 1:1 INTERVENTION ALLOWING PT. TO EXPRESS THOUGHTS AND FEELINGS.
[2020-09-07] MEDS: LEVOTHYROXINE SODIUM PO SCH (06:18)
[2020-09-07] MEDS: GLUCOPHAGE PO SCH ×2 (07:30→16:30)
[2020-09-07 08:17] LABS: BASOPHIL % 0.9 % (0.0-0.2); EOSINOPHIL % 0.2 % (0.0-5.0); LYMPHOCYTES # 1.59 10^3/uL1 (1.0-4.8); LYMPHOCYTES % 37.1 % (24.0-44.0); MEAN CORP HGB 29.4 pg (26-34); MONOCYTES # 0.6 10^3/uL (0.3-0.8); MONOCYTES % 14.3 % (5.0-12.0); NEUTROPHILS % 47.3 % (41.0-85.0); PLATELET COUNT 242 10^3/uL (150-400); RED CELL DISTRIBUTION WIDTH 15.6 % (11.5-14.5)
[2020-09-07 08:28] LABS: CALCIUM 8.8 mg/dL (8.4-10.5); CARBON DIOXIDE 25.1 mmol/L (20.0-32)
[2020-09-07 09:11] VITALS: BP 107/60
[2020-09-07] MEDS: NORVASC PO SCH (09:12)
[2020-09-07] MEDS: DEPAKOTE ER PO SCH (09:12)
[2020-09-07] MEDS: NAMENDA PO SCH ×2 (09:12→20:02)
[2020-09-07] MEDS: MACROBID PO SCH ×2 (09:12→20:03)
[2020-09-07] MEDS: PEPCID PO SCH ×2 (09:13→20:03)
[2020-09-07] MEDS: ASPIRIN EC PO SCH (09:13)
--- NOTE | 2020-09-07 14:10 | PRM.PN ---
Mood: little anxious, little curious Sleep: average 10-11 hours, Appetite: good, bit nauseous - eating little bits, gave her away Suidical thoughts: denies Homicidal thoughts: denies Recent stressors: wants to see family Family support: son, hope he comes to see me, Yue Aggressive Behavior: no aggression Manic Symptoms: busy acting, tore up depend, feminine pad Family,PT,Surgical,&Current HX: (1) Major depressive disorder with single episode (2) Dementia (3) Delusional disorder (4) Personal history of self-harm Anxity Symptoms: appearing restless, anxiety Muscle Strength & Tone: WNL Gait & Station: WNL Appearance: Well groomed/hygience Attitude & Behaviour: Cooperative/Pleasant Mood & Affect: Full Orientation: Disoriented to place, Disoriented to time, Disoriented to situation Attention/Concentration: Fair attention, Fair concentration Speech: Reg rate/vol/rhyth/prosod Judgement/Insight: Fair judgement, Poor insight Thought Process: Circumferential Language: Cymraes Thought content/Abnormal/Psych: Delusions Fund of Knowledge: WN Associations: Other Constitutional: None Neurological: None Psychiatric: Psychosis Assessment/Plan Assessment/Plan Plan nursing: not oriented "if I did, I don't remember" patient: reports other son is visiting [place], reports not being there, says Rebecca holland, talked to so Laboratory Tests 09/06/20 16:44: Bedside Glucose 193H 09/06/20 20:34: Bedside Glucose 129H 09/07/20 08:05: White Blood Count 4.3L, Red Blood Count 3.98L, Hemoglobin 11.7L, Hematocrit 35.5L, Mean Corpuscular Volume 89.2, Mean Corpuscular Hemoglobin 29.4, Mean Corpuscular Hemoglobin Concent 33.0, Red Cell Distribution Width 15.6H, Platelet Count 242, Mean Platelet Volume 10.0, Neutrophils (%) (Auto) 47.3, Lymphocytes (%) (Auto) 37.1, Monocytes (%) (Auto) 14.3H, Neutrophils # (Auto) 2.0, Lymphocytes # (Auto) 1.59, Monocytes # (Auto) 0.6, Absolute Immature Granulocyte (auto 0.01, Absolute Eosinophils (auto) 0.0, Immature Granulocytes % 0.20, Eosinophils % 0.2, Basophils % 0.9H, Basophils # 0.0, Sodium Level 140, Potassium Level 3.6, Chloride Level 106.0, Carbon Dioxide Level 25.1, Anion Gap 12.5, Blood Urea Nitrogen 9, Creatinine 1.15, Estimated GFR () 56.1, Est GFR (CKD-EPI)(Non-Afr Indian) 46.4, BUN/Creatinine Ratio 7.0, Glucose Level 132H, Calcium Level 8.8, Total Bilirubin 0.5, Aspartate Amino Transf (AST/SGOT) 16, Alanine Aminotransferase (ALT/SGPT) 24, Alkaline Phosphatase 75, Total Protein 6.6, Albumin 3.1L, Globulin 3.5, Albumin/Globulin Ratio 0.885, Triglycerides Level 109, Cholesterol Level 187, LDL Cholesterol, Calculated 108.2, VLDL Cholesterol, Calculated 21.8, HDL Cholesterol 57, Cholesterol Ratio (LDL/HDL) 1.8, Cholesterol/HDL Ratio 3.902601, Valproic Acid (Depakene) Level 32L 09/07/20 08:42: Bedside Glucose 95 Vital Signs Date Time Temp Pulse Resp B/P (MAP) Pulse Ox O2 Delivery O2 Flow Rate FiO2 09/06/20 19:33 98.2 94 18 138/77 (97) 100 Room Air Allergies Coded Allergies Type Severity Reaction Last Updated Verified heparin Allergy Unknown 09/01/20 Yes Current Medications Medications (Trade) Dose Ordered Sig/Mary Jane PRN Reason Start Time Stop Time Status Last Admin Cholecalciferol (Vitamin D) 2,000 unit HS 09/04/20 21:00 10/04/20 20:59 09/06/20 20:08 Divalproex Sodium (Depakote Er) 250 mg BID 09/05/20 11:30 10/15/20 21:00 09/06/20 20:08 Donepezil HCl (Aricept Odt) 10 mg HS 09/04/20 21:00 10/04/20 20:59 09/06/20 20:09 Miscellaneous Medication (Namenda) 5 mg BID 09/04/20 12:30 10/04/20 12:29 09/06/20 20:07 summary: appearing today to want to leave saying she would like to see her 2nd son, (not based on reality) today she did admit to knowing she was , asks about her diagnosis, and the prognosis Jokes about wanting a $5,000 watch for Rebecca, guesses she will settle for $2500 one, says due to her small wrists. CONSENT: Consent was obtained by patient for telemedicine visit. Consent was obtained for the presence of staff member throughout encounter. Privacy was maintained throughout encounter PLAN: 1. CONTINUE BEHAVIORAL HEALTH MANAGEMENT. 2. CONTINUE CURRENT MEDICATIONS PRESCRIBED. STAFF AGREEABLE WITH PLAN 3. ALL PATIENT QUESTIONS ANSWERED RELATED TO MEDICATIONS, PLAN OF CARE, AND EXPECTED OUTCOMES. 4. SAFETY PLAN DISCUSSED. SALLY MANZANO NP Sep 07, 2020 14:10
--- NOTE | 2020-09-07 15:15 | PCM.EKG ---
[facility] Test Date: 2020-09-07 Test Time: 15:11:29 Pat Name: CLIFF ZACARIAS Department: Room: 211 A Gender: F Zipper Cutter: RONEN : 1950 Requested By: SALLY MANZANO Order Number: [id number] Reading MD: Measurements Intervals [place] Rate: 91 P: 47 HI: 143 QRS: -2 QRSD: 87 T: 92 QT: 380 QTc: 468 Interpretive Statements Sinus rhythm Borderline T wave abnormalities No previous ECG available for comparison Please click the below link to view image of tracing.
--- NOTE | 2020-09-07 15:37 | NUR ---
PRN MEDICATION ZYPREXA MG GIVEN FOR ANXIETY AND PSYCHOSIS. PT STATES HER MIND IS RACING 90 MILES AN HOUR. CANT SIT STILL. STATES SHE IS GOING TO GO TO THE BATHROOM AND FART BIG AND COME GIVE IT TO ME.
[2020-09-07] MEDS: ZYPREXA ZYDIS SL PRN (15:40)
[2020-09-07] MEDS: ATARAX PO PRN (17:03)
--- NOTE | 2020-09-07 17:04 | NUR ---
BEHAVIOR NOTE: PATIENT IS UNABLE TO REDIRECT. MAKING THREATS TOWARDS STAFF, SUCH "I'M GOING TO CUT YOUR FEET OFF". SHE IS ABLE TO RECALL CONVERSATIONS AND ASKS OVER AND OVER. SHE TOOK PLASTIC SPORK AND SCRATCHED HER INNER RT WRIST. SPORK WAS TAKEN AWAY. THERE WERE NO VISIBLE INJURIES TO RT WRIST.PATIENT THREW CUP OF WATER AT THIS NURSE. ATARAX PO PRN GIVEN FOR ANXIOUS, AGITATION AND THREATENING BEHAVIOR. SECURITY IS ON UNIT SITTING WITH PATIENT IN HER ROOM.
--- NOTE | 2020-09-07 17:16 | NUR ---
PIRP: P: ALTERATION IN MOOD, ALTERATION IN THOUGHT PROCESS I: PROVIDE MEDICATIONS ORDERED BY PHYSICIAN. ENCOURAGE ATTENDANCE AND PARTICIPATION OF ALL GROUPS. ALLOW PATIENT TO VOICE FEELINGS AND CONCERNS. PROVIDE SAFE ENVIRONMENT. ASSISTED PATIENT FOR PREVENTION OF FALLS, SUPPLY PATIENT WITH NONSLIP SOCKS. MONITOR PATIENT FOR PSYCHOTIC SYMPTOMS AND REPORT TO PHYSICIANS. ASSESS PATIENT FOR DEPRESSION, ANXIETY AND SUICIDAL THOUGHTS. R: PATIENT SLEPT IN TODAY UNTIL APPROX 1100 SON REPORTED THAT IS NORMAL FOR HER. PATIENT'S MEMORY IS POOR AND SHE REQUIRES CONSTANT REDIRECTION AND REORIENTATION. SHE HAS MADE THREATENING STATEMENTS TOWARDS THE NURSES AND OTHER PATIENTS TODAY AND HAS BEEN AGITATED.SEE PREVIOUS NOTE. PATIENT TOOK ALL MEDICATIONS TODAY ORDERED . SHE WANDERS IN AND OUTOF PATIENTS ROOMS AND REQUIRES SUPERVISION. P:CONTINUE CURRENT PLAN OF CARE. PATRICK MANZANO NPNOTIFIED AND DEPAKOTE INCRESED TO 500 MG PO BID AND ZYPREXA ZYDIS MG PO HS.
[2020-09-07 19:37] VITALS: BP 101/51
[2020-09-07] MEDS: ARICEPT ODT PO SCH (20:03)
[2020-09-07] MEDS: DEPAKOTE EC PO SCH (20:03)
[2020-09-07] MEDS: VITAMIN D PO SCH (20:03)
[2020-09-07] MEDS: ZYPREXA ZYDIS SL SCH (20:04)
[2020-09-07] MEDS: LANTUS SQ SCH (20:10)
--- NOTE | 2020-09-08 02:48 | NUR ---
PIRP- P- ALTERATION IN MOOD AND FALL RISK I- PROVIDE MEDICATION ORDERED,PROVIDE SAFE AND SUPPORTIVE ENVIRONMENT AND Q 15 MIN. MONITORING. REDIRECT AND REORIENT NEEDED. R- PT. RATED DEPRESSION 7 AND ANXIETY 7. ORIENTED TO NAME,YEAR AND NOT MONTH. ATTENDED GROUP,ATE SNACKS AND PARTICIPATED IN EXERCISES. PT. STATED SHE GOT A PHONE CALL TODAY FROM A SON THAT SHE DID NOT KNOW SHE HAD THEN THE PHONE WENT AND SHE DID NOT GET TO TALK TO HIM AND FIND OUT ANYTHING ABOUT HIM. PT. FORGETFUL AND REQUIRES REDIRECTING AND REORIENTING AT TIMES. TOOK MEDICATION ORDERED. RESTING IN BED WITH EYES CLOSED AT THIS TIME. P- PROVIDE 1:1 INTERVENTION ALLOWING PT. TO EXPRESS THOUGHTS AND FEELINGS. GIVE CLEAR AND SIMPLE DIRECTIONS. PROVIDE MEDICATION ORDERED.
[2020-09-08] MEDS: LEVOTHYROXINE SODIUM PO SCH (06:01)
[2020-09-08] MEDS: GLUCOPHAGE PO SCH ×2 (07:30→16:45)
[2020-09-08 07:36] VITALS: BP 147/63
[2020-09-08] MEDS: NAMENDA PO SCH (08:09)
[2020-09-08] MEDS: PEPCID PO SCH ×2 (08:09→20:02)
[2020-09-08] MEDS: DEPAKOTE EC PO SCH ×2 (08:09→20:01)
[2020-09-08] MEDS: ASPIRIN EC PO SCH (08:09)
[2020-09-08] MEDS: MACROBID PO SCH ×2 (08:09→20:01)
[2020-09-08] MEDS: NORVASC PO SCH (08:09)
--- NOTE | 2020-09-08 12:41 | NUR ---
TELEMED PT WAS SEEN BY Delma MANZANO NP. RECEIVED ORDERS TO DISCONTINUE NAMENDA AND ARICEPT.
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
--- NOTE | 2020-09-08 17:13 | NUR ---
PIRP P: ALTERATION IN MOOD, CONFUSION I: Q15 MIN MONITORING, ASSESS FOR DEPRESSION/ANXIETY, GIVE CLEAR AND SIMPLE INSTRUCTIONS, ASSESS FOR PSYCHOTIC SYMPTOMS, PROVIDE 1:1 TO ENCOURAGE EXPRESSION OF FEELINGS, REDIRECT WITH VERBALIZATION, RE-ORIENT TO SURROUNDINGS NEEDED, PROVIDE SAFE AND SUPPORTIVE ENVIRONMENT, RE-ORIENT TO REALITY NEEDED R: PT HAS ISOLATED TO ROOM MAJORITY OF SHIFT, SPORADICALLY AMBULATED DOWN DURAN AND INTO DAY ROOM. PT APPEARS TO BE ANXIOUS TO APPROACH, FREQUENTLY ASKS THE SAME QUESTIONS. NO HALLUCINATIONS NOTED, PT DOES EXHIBIT VARYING DELUSIONS INCLUDING BELIEVING SHE HAS MULTIPLE SONS FROM [place] AND ONLY FOUND OUT TODAY. PT HAS BEEN ABLE TO BE REDIRECTED WITH VERBALIZATION. INITIALLY DENIED FEELINGS OF DEPRESSION, BUT DID EXHIBIT EPISODE OF TEARFULNESS AND REPORTED FEELING LIKE SHE HAD NO PURPOSE. THIS RN HAD 1:1 WITH PATIENT AND ENCOURAGED EXPRESSION OF FEELINGS. PT WAS ABLE TO BE REDIRECTED WITH VERBALIZATION, HAS NOT EXHIBITED THREATENING OR COMBATIVE BEHAVIORS. HAS TAKEN MEDICATIONS ORDERED AND IS COOPERATIVE WITH ADLS. P: RE-ORIENT TO REALITY NEEDED, USE CALM REASSURING APPROACH, ALTERNATE REST/ACTIVITY
--- NOTE | 2020-09-08 18:48 | PRM.PN ---
PROGRESS NOTE S/O/A/P Chief complaint: Medical management. Subjective: She feels well, no specific complaint. Objective: Vital Signs Date Time Temp Pulse Resp B/P (MAP) Pulse Ox O2 Delivery O2 Flow Rate FiO2 09/08/20 08:09 79 147/63 09/08/20 07:36 98.2 20 97 09/07/20 19:37 Room Air - GENERAL:no in distress. oriented to self and time but not to place or situation.alert. - EYES: EOMI. Anicteric. - HENT: moist mucous membranes. No scleral icterus. No cervical lymphadenopathy. - LUNGS: normal air entry bilateraly, Clear to auscultation bilaterally. No accessory muscle use. - CARDIOVASCULAR: Regular rate and rhythm. No murmur. No JVD. - ABDOMEN: Soft, non-tender,distended. - EXTREMITIES: No edema. Non-tender. - NEUROLOGIC: No focal neurological deficits. CN II-XII grossly intact. - PSYCHIATRIC: Cooperative. anxious. LABORATORY DATA: Laboratory Tests Test 09/07/20 20:00 09/08/20 07:34 09/08/20 16:42 Bedside Glucose 164 117 129 Current Medications Medications (Trade) Dose Ordered Sig/Mary Jane Route PRN Reason Start Time Stop Time Status Last Admin Dose Admin Hydroxyzine HCl (Vistaril) 25 mg Q6HR PRN IM anxiety 09/01/20 16:00 10/01/20 15:59 Hydroxyzine HCl (Atarax) 25 mg Q6HR PRN PO anxiety 09/01/20 16:00 10/01/20 15:59 09/07/20 17:03 Olanzapine (Zyprexa) 10 mg Q6HR PRN IM psychosis/anxiety 09/01/20 16:00 10/01/20 15:59 Olanzapine (Zyprexa Zydis) 10 mg Q6HR PRN SL psychosis/anxiety 09/01/20 16:00 10/01/20 15:59 09/07/20 15:40 Acetaminophen (Tylenol) 650 mg Q6H PRN PO PAIN 1 - 3 09/01/20 21:00 10/01/20 20:59 09/04/20 22:24 Amlodipine Besylate (Norvasc) 5 mg DAILY PO 09/02/20 09:00 10/02/20 08:59 09/08/20 08:09 Aspirin (Aspirin Ec) 81 mg DAILY PO 09/02/20 09:00 10/02/20 08:59 09/08/20 08:09 Cholecalciferol (Vitamin D) 2,000 unit DAILY24 PO 09/01/20 21:00 09/04/20 07:30 DC 09/03/20 20:42 Donepezil HCl (Aricept) 5 mg HS PO 09/01/20 21:00 09/01/20 20:49 DC 09/01/20 20:40 Famotidine (Pepcid) 20 mg BID PO 09/01/20 21:00 10/01/20 20:59 09/08/20 08:09 Insulin Glargine (Lantus) 12 unit DAILY24 SQ 09/01/20 21:00 10/01/20 20:59 09/07/20 20:10 Levothyroxine Sodium (Levothyroxine Sodium) 25 mcg ACB PO 09/02/20 06:30 10/02/20 06:29 09/08/20 06:01 Nitrofurantoin Macrocrystals (Macrobid) 100 mg BID PO 09/01/20 21:00 10/01/20 20:59 09/08/20 08:09 Metformin HCl (Glucophage) 500 mg 0730,1630 PO 09/02/20 07:30 10/02/20 07:29 09/08/20 16:45 Cholecalciferol (Vitamin D) 1,000 unit STK-MED ONCE .ROUTE 09/01/20 20:38 09/01/20 20:38 DC Donepezil HCl (Aricept Odt) 5 mg STK-MED ONCE .ROUTE 09/01/20 20:38 09/01/20 20:39 DC Donepezil HCl (Aricept Odt) 5 mg HS PO 09/01/20 21:00 09/04/20 12:24 DC 09/03/20 20:38 Olanzapine (Zyprexa Zydis) 10 mg HS SL 09/02/20 21:00 09/07/20 17:29 DC 09/06/20 20:08 Cholecalciferol (Vitamin D) 1,000 unit STK-MED ONCE .ROUTE 09/03/20 20:42 09/03/20 20:42 DC Cholecalciferol (Vitamin D) 2,000 unit HS PO 09/04/20 21:00 10/04/20 20:59 09/07/20 20:03 Donepezil HCl (Aricept Odt) 10 mg HS PO 09/04/20 21:00 09/08/20 12:59 DC 09/07/20 20:03 Miscellaneous Medication (Namenda) 5 mg BID PO 09/04/20 12:30 09/08/20 12:59 DC 09/08/20 08:09 Divalproex Sodium (Depakote Er) 250 mg BID PO 09/05/20 11:30 09/07/20 17:29 DC 09/07/20 09:12 Divalproex Sodium (Depakote Ec) 500 mg BID PO 09/07/20 21:00 10/07/20 20:59 09/08/20 08:09 Olanzapine (Zyprexa Zydis) 15 mg HS SL 09/07/20 21:00 10/07/20 20:59 09/07/20 20:04 Assessment and plan: 70 years old female with history of dementia and bipolar disorder presented with progressive behavior. #History of hypertension: Controlled. Continue home medications. #History of hypothyroidism: Will continue same dose of 25 mcg daily. # Hypercholesterolemia: LDL is 108, goal is below 70. Plan: Start Crestor 10 mg p.o. nightly. #History of diabetes mellitus type 2: Hemoglobin A1c is within target for her age. Continue Lantus 12 units in the morning. c/w Metformin 500 mg p.o. BID. #Diabetic neuropathy: She is on Cymbalta at home. We will hold the medication at this moment as she is on antipsychotic medication. Decision to continue Cymbalta will be deferred to the psychiatrist. LIZZIE GOLDSTEIN MD Sep 08, 2020 18:48
[2020-09-08] MEDS ORDERED: CRESTOR PO ONE (19:59)
[2020-09-08 20:00] VITALS: BP 158/80
[2020-09-08] MEDS: CRESTOR PO SCH (20:01)
[2020-09-08] MEDS: ZYPREXA ZYDIS SL SCH (20:02)
[2020-09-08] MEDS: VITAMIN D PO SCH (20:02)
[2020-09-08] MEDS: LANTUS SQ SCH (20:50)
--- NOTE | 2020-09-09 02:39 | NUR ---
P.I.R.P. P. ALTERATION IN THOUGHT PROCESS/CONFUSION/FALLS/DELUSIONS I. PROVIDE EVERY 15 MINUTE CHECKS, PROVIDE SAFE ENVIRONMENT, PROVIDE MEDICATIONS ORDERED PER MD. PROVIDE TASK ORIENTED GROUP ACTIVITY AND ENCOURAGE PARTICIPATION, RE ORIENT AND RE DIRECT NEEDED. 1:1 INTERVENTION TO ALLOW PATIENT TO EXPRESS FEELINGS, GIVE SIMPLE INSTRUCTIONS AND EDUCATION REFERENCE MEDS AND SITUATION. MONITOR FOR CHANGES IN COGNITIVE STATUS. R. PATIENT IS ALERT, CONFUSED OF PLACE AND TIME, IS FORGETFUL ESPECIALLY OF PLACEMENT OF GLASSES AND WHAT SHE HAS ASKED EVEN A FEW MINUTES LATER. ATTENDED GROUP ACTIVITY, TOOK MEDS ORDERED, NO PRN MEDS THIS SHIFT, DENIES ANXIETY AND DEPRESSION ALTHOUGH ACTIONS APPEARED ANXIOUS AT TIMES. WANDERED IN HALLWAY AT TIMES, HAS HAD DELUSIONS, VOICING HER SON TOLD HER SHE HAS 2 GRANDCHILDREN SHE DID NOT EVEN KNOW ABOUT AND THEY ALL GOT TOGETHER THIS WEEKEND AND SHE DID NOT GET TO GO BECAUSE SHE WAS IN HERE. NO FALLS, PATIENT DOES OCCASIONALLY SIT IN HALLWAY AND LEAN UP AGAINST WALL. P. CONTINUE CURRENT PLAN OF CARE.
[2020-09-09] MEDS: LEVOTHYROXINE SODIUM PO SCH (06:26)
[2020-09-09] MEDS: GLUCOPHAGE PO SCH ×2 (07:30→16:56)
[2020-09-09 07:37] VITALS: BP 120/72
[2020-09-09] MEDS: ASPIRIN EC PO SCH (08:20)
[2020-09-09] MEDS: PEPCID PO SCH ×2 (08:21→20:15)
[2020-09-09] MEDS: DEPAKOTE EC PO SCH ×2 (08:21→20:15)
[2020-09-09] MEDS: MACROBID PO SCH ×2 (08:21→20:14)
[2020-09-09] MEDS: NORVASC PO SCH (08:21)
--- NOTE | 2020-09-09 09:51 | NUR ---
TELEMED PT WAS SEEN BY DR. CROFT VIA TELEMED. NO NEW ORDERS RECEIVED AT THIS TIME.
--- NOTE | 2020-09-09 10:00 | PRM.PN ---
Mood: "okay" Sleep: very good Appetite: has been good Suidical thoughts: denies Homicidal thoughts: denies Recent stressors: being moved around so many times Aggressive Behavior: 2 days ago threw water at staff Ability to Perform ADL'sc: mostly independent Psychotic sympstoms: denies Manic Symptoms: denies Living situation: [facility] Anxity Symptoms: I'm glad adán is over Anger/Irritablility: denies Appearance: Well groomed/hygience, Appears age stated Attitude & Behaviour: Cooperative/Pleasant, Good eye contact Mood & Affect: Euthymic/appr/congruent Orientation: Disoriented to place, Disoriented to time, Disoriented to situation Attention/Concentration: Fair attention, Fair concentration Speech: Reg rate/vol/rhyth/prosod Judgement/Insight: Poor judgement, Poor insight Thought Process: Linear/goal directed Language: Salvadorean Thought content/Abnormal/Psych: None/normal Fund of Knowledge: Other (eroded by dementia) Associations: WNL/Normal Associations Memory (recent and remote): Recent memory repaired, Remote memory repaired Constitutional: None Neurological: None Psychiatric: None [place] I: Delusional Disorder, Neurocognitive Disorder Assessment/Plan Assessment/Plan Assessment/Plan nursing: She did okay yesterday - came out of her room, seemed more pleasant, was more interactive, though made comment about being moved around so much. But 2 days ago, threw water on nurse, was perseverating asking the same 3 questions repeatedly. Patient: Patient feels okay today. She is oriented to person. Reports that she slept well, hasn't had time to eat breakfast yet. Vital Signs Date Time Temp Pulse Resp B/P (MAP) Pulse Ox O2 Delivery O2 Flow Rate FiO2 09/08/20 08:09 79 147/63 09/08/20 07:36 98.2 20 97 Allergies Coded Allergies Type Severity Reaction Last Updated Verified heparin Allergy Unknown 09/01/20 Yes Current Medications Medications (Trade) Dose Ordered Sig/Mary Jane PRN Reason Start Time Stop Time Status Last Admin Divalproex Sodium (Depakote Ec) 500 mg BID 09/07/20 21:00 10/07/20 20:59 09/08/20 08:09 Olanzapine (Zyprexa Zydis) 15 mg HS 09/07/20 21:00 1/21/21 20:59 09/07/20 20:04 previous: psychiatric provider, Benita, she does not know name CONSENT: Consent was obtained by patient for telemedicine visit. Consent was obtained for the presence of staff member throughout encounter. Privacy was maintained throughout encounter 70 yo F, unknown psych history, admitted to [facility] for worsening mood/aggression. Patient appears somewhat better today, less aggression than 2 days ago. Reviewed R/B/SEs of medications. PVU, agrees with plan. Plan 1. CONTINUE BEHAVIORAL HEALTH MANAGEMENT. 2. CONTINUE CURRENT MEDICATIONS PRESCRIBED. 3. ALL PATIENT QUESTIONS ANSWERED RELATED TO MEDICATIONS, PLAN OF CARE, AND EXPECTED OUTCOMES. 4. SAFETY PLAN DISCUSSED. ALBA CROFT MD Sep 09, 2020 10:00
--- NOTE | 2020-09-09 17:28 | NUR ---
PIRP P: ALTERATION IN MOOD, CONFUSION I: Q15 MIN MONITORING, ASSESS FOR DEPRESSION/ANXIETY, GIVE CLEAR AND SIMPLE INSTRUCTIONS, ASSESS FOR PSYCHOTIC SYMPTOMS, PROVIDE 1:1 TO ENCOURAGE EXPRESSION OF FEELINGS, REDIRECT WITH VERBALIZATION, RE-ORIENT TO SURROUNDINGS NEEDED, PROVIDE SAFE AND SUPPORTIVE ENVIRONMENT, RE-ORIENT TO REALITY NEEDED R: PT HAS BRIGHT, CHEERFUL AFFECT THROUGHOUT SHIFT, ANXIOUS AT TIMES BUT IS ABLE TO BE REDIRECTED WITH VERBALIZATION. DENIES FEELINGS OF DEPRESSION, ANXIETY, SI/HI. NO HALLUCINATIONS OR DELUSIONS NOTED. PT REMAINS ALERT AND ORIENTED TO SELF, REQUIRES FREQUENT RE-ORIENTATION TO SURROUNDINGS. HAS TAKEN MEDICATIONS ORDERED, INITIATES INTERACTION WITH STAFF AND PEERS, AND HAS SHOWN IMPROVEMENT IN FOOD/FLUID INTAKE WITH ENCOURAGEMENT. P: RE-ORIENT TO REALITY NEEDED, PROVIDE POSITIVE FEEDBACK ON APPROPRIATE BEHAVIORS
[2020-09-09] MEDS ORDERED: CRESTOR PO ONE (19:34)
--- NOTE | 2020-09-09 19:50 | DIET.OP ---
Nutrition Asmt/Malnutrit 2-17 Actual Date of Review: Sep 09, 2020 Diagnosis: delusional disorder Pertinent Medical Hx/Surgical: DM-2, HTN, dementia, bipolar disorder, MDD, hypothyroidism. Subjective Information: telehealth f/u - pt admitted from snf for worsening mood/agression. BG 104-177 mg/dl yesterday and today. PO intake is poor, 15-50% today and 10% yesterday with lots of snacks. Current Diet Order/Nutrition S: 1999 ar ADA Patient /S.O: Not Indicated Height (Feet): 5 Height (Inches): 9 Current Weight: 180 (estimated by staff) Weight Status: Overweight GI Symptoms: Last BM (09/09) Food Allergies: No BEE in Kcals: Use Current Weight Calories/Kcals/Kg: MSJ 1.2-1.4 Kcals Calculated: 1791-2331 kcal Protein: Use Current Weight Protein g/k.8-1g/kg Protein Calculated: 65-82g Fluid: ml: 9176-6518 ml or 1 ml/kcal Nutritional Problem: Nutr. Problems Present Problems: Inadequate oral intake Etiology: unknown Signs/Symptoms: 0-25% po intake not meeting needs Recommendations by RD: Add supplement feedings RD Comments: 1. Continue 1999 ar ADA diet, encouraging po intake. Small frequent meals and snacks. 2. Recommend Glucerna oral supplement TID to help meet nutritional needs. Encourage intake. 3. Continue to monitor BG and correct as indicated. 4. Recommend a weight on the chair scale. 5. RD to monitor po intake and weight. Diet education not appropriate at this time. Expected Outcomes 65-100% po intake of meals and snacks to meet estimated needs the next 3 days. discharge on consistent carb diet. Malnutrtion/Nutrition Risk Edu: No MD Notificiation Needed?: No Katy Dodson Sep 09, 2020 19:50
[2020-09-09 20:00] VITALS: BP 146/68
[2020-09-09] MEDS: ZYPREXA ZYDIS SL SCH (20:14)
[2020-09-09] MEDS: CRESTOR PO SCH (20:14)
[2020-09-09] MEDS: VITAMIN D PO SCH (20:15)
[2020-09-09] MEDS: LANTUS SQ SCH (20:16)
--- NOTE | 2020-09-10 03:13 | NUR ---
P.I.R.P. P. ALTERATION IN THOUGHT PROCESS/CONFUSION I. PROVIDE EVERY 15 MINUTE CHECKS, PROVIDE SAFE ENVIRONMENT, PROVIDE MEDICATIONS ORDERED PER MD. PROVIDE TASK ORIENTED GROUP ACTIVITY AND ENCOURAGE PARTICIPATION, RE ORIENT AND RE DIRECT NEEDED. 1:1 INTERVENTION TO ALLOW PATIENT TO EXPRESS FEELINGS, GIVE SIMPLE INSTRUCTIONS AND EDUCATION REFERENCE MEDS , HYGIENE AND SITUATION. MONITOR FOR CHANGES IN COGNITIVE STATUS. MONITOR FOR STRESSORS. R. PATIENT IS ALERT, CONFUSED OF PLACE, TIME AND SITUATION, ASKING FOR CLARIFICATION OF HOW SHE ENDED UP HERE AND WHERE SHE IS, ALSO ASKED IF SHE HAD ACTED BADLY TOWARD ANYONE TODAY, EDUCATED SHE HAD NOT TODAY, PATIENT ASKED WHAT SHE HAD DONE IN PAST, REVIEWED BEHAVIORS AT [facility] [place]. CONTINUES FORGETFUL AND REQUIRES QUES FREQUENTLY OF WHERE HER ROOM IS. ATTENDED GROUP ACTIVITY, TOOK MEDS ORDERED, NO PRN MEDS THIS SHIFT, RATED ANXIETY AND DEPRESSION A 5 ON SCALE. WANDERED IN HALLWAY AT TIMES. NO FALLS. P. CONTINUE CURRENT PLAN OF CARE.
[2020-09-10] MEDS: LEVOTHYROXINE SODIUM PO SCH (06:26)
[2020-09-10 08:09] VITALS: BP 109/58
[2020-09-10] MEDS: PEPCID PO SCH ×2 (09:25→20:11)
[2020-09-10] MEDS: MACROBID PO SCH ×2 (09:25→20:12)
[2020-09-10] MEDS: ASPIRIN EC PO SCH (09:25)
[2020-09-10] MEDS: NORVASC PO SCH (09:25)
[2020-09-10] MEDS: GLUCOPHAGE PO SCH ×2 (09:25→17:21)
[2020-09-10] MEDS: DEPAKOTE EC PO SCH ×2 (09:25→20:11)
--- NOTE | 2020-09-10 13:24 | PRM.PN ---
PROGRESS NOTE S/O/A/P Chief complaint: Medical management. Subjective: She feels well, no specific complaint. Objective: Vital Signs Date Time Temp Pulse Resp B/P (MAP) Pulse Ox O2 Delivery O2 Flow Rate FiO2 09/10/20 09:25 91 109/58 09/10/20 08:09 98.1 20 95 Room Air - GENERAL:no in distress. oriented to self and time but not to place or situation.alert. - EYES: EOMI. Anicteric. - HENT: moist mucous membranes. No scleral icterus. No cervical lymphadenopathy. - LUNGS: normal air entry bilateraly, Clear to auscultation bilaterally. No accessory muscle use. - CARDIOVASCULAR: Regular rate and rhythm. No murmur. No JVD. - ABDOMEN: Soft, non-tender,distended. - EXTREMITIES: No edema. Non-tender. - NEUROLOGIC: No focal neurological deficits. CN II-XII grossly intact. - PSYCHIATRIC: Cooperative. anxious. LABORATORY DATA: Laboratory Tests Test 09/09/20 16:50 09/10/20 07:54 Bedside Glucose 177 106 Current Medications Medications (Trade) Dose Ordered Sig/Mary Jane Route PRN Reason Start Time Stop Time Status Last Admin Dose Admin Hydroxyzine HCl (Vistaril) 25 mg Q6HR PRN IM anxiety 09/01/20 16:00 10/01/20 15:59 Hydroxyzine HCl (Atarax) 25 mg Q6HR PRN PO anxiety 09/01/20 16:00 10/01/20 15:59 09/07/20 17:03 Olanzapine (Zyprexa) 10 mg Q6HR PRN IM psychosis/anxiety 09/01/20 16:00 10/01/20 15:59 Olanzapine (Zyprexa Zydis) 10 mg Q6HR PRN SL psychosis/anxiety 09/01/20 16:00 10/01/20 15:59 09/07/20 15:40 Acetaminophen (Tylenol) 650 mg Q6H PRN PO PAIN 1 - 3 09/01/20 21:00 10/01/20 20:59 09/04/20 22:24 Amlodipine Besylate (Norvasc) 5 mg DAILY PO 09/02/20 09:00 10/02/20 08:59 09/09/20 08:21 Aspirin (Aspirin Ec) 81 mg DAILY PO 09/02/20 09:00 10/02/20 08:59 09/10/20 09:25 Cholecalciferol (Vitamin D) 2,000 unit DAILY24 PO 09/01/20 21:00 09/04/20 07:30 DC 09/03/20 20:42 Donepezil HCl (Aricept) 5 mg HS PO 09/01/20 21:00 09/01/20 20:49 DC 09/01/20 20:40 Famotidine (Pepcid) 20 mg BID PO 09/01/20 21:00 10/01/20 20:59 09/10/20 09:25 Insulin Glargine (Lantus) 12 unit DAILY24 SQ 09/01/20 21:00 10/01/20 20:59 09/09/20 20:16 Levothyroxine Sodium (Levothyroxine Sodium) 25 mcg ACB PO 09/02/20 06:30 10/02/20 06:29 09/10/20 06:26 Nitrofurantoin Macrocrystals (Macrobid) 100 mg BID PO 09/01/20 21:00 10/01/20 20:59 09/10/20 09:25 Metformin HCl (Glucophage) 500 mg 0730,1630 PO 09/02/20 07:30 10/02/20 07:29 09/10/20 09:25 Cholecalciferol (Vitamin D) 1,000 unit STK-MED ONCE .ROUTE 09/01/20 20:38 09/01/20 20:38 DC Donepezil HCl (Aricept Odt) 5 mg STK-MED ONCE .ROUTE 09/01/20 20:38 09/01/20 20:39 DC Donepezil HCl (Aricept Odt) 5 mg HS PO 09/01/20 21:00 09/04/20 12:24 DC 09/03/20 20:38 Olanzapine (Zyprexa Zydis) 10 mg HS SL 09/02/20 21:00 09/07/20 17:29 DC 09/06/20 20:08 Cholecalciferol (Vitamin D) 1,000 unit STK-MED ONCE .ROUTE 09/03/20 20:42 09/03/20 20:42 DC Cholecalciferol (Vitamin D) 2,000 unit HS PO 09/04/20 21:00 1/18/21 20:59 09/09/20 20:15 Donepezil HCl (Aricept Odt) 10 mg HS PO 09/04/20 21:00 09/08/20 12:59 DC 09/07/20 20:03 Miscellaneous Medication (Namenda) 5 mg BID PO 09/04/20 12:30 09/08/20 12:59 DC 09/08/20 08:09 Divalproex Sodium (Depakote Er) 250 mg BID PO 09/05/20 11:30 09/07/20 17:29 DC 09/07/20 09:12 Divalproex Sodium (Depakote Ec) 500 mg BID PO 09/07/20 21:00 10/07/20 20:59 09/10/20 09:25 Olanzapine (Zyprexa Zydis) 15 mg HS SL 09/07/20 21:00 10/07/20 20:59 09/09/20 20:14 Rosuvastatin Calcium (Crestor) 10 mg HS PO 09/08/20 21:00 10/08/20 20:59 09/09/20 20:14 Rosuvastatin Calcium (Crestor) 10 mg STK-MED ONCE PO 09/08/20 19:59 09/08/20 19:59 DC Rosuvastatin Calcium (Crestor) 10 mg STK-MED ONCE PO 09/09/20 19:34 09/09/20 19:34 DC Assessment and plan: 70 years old female with history of dementia and bipolar disorder presented with progressive behavior. #History of hypertension: Controlled. Continue home medications. #History of hypothyroidism: Will continue same dose of 25 mcg daily. # Hypercholesterolemia: LDL is 108, goal is below 70. Plan: Crestor 10 mg p.o. nightly. #History of diabetes mellitus type 2: Hemoglobin A1c is within target for her age. Continue Lantus 12 units in the morning. c/w Metformin 500 mg p.o. BID. #Diabetic neuropathy: She is on Cymbalta at home. We will hold the medication at this moment as she is on antipsychotic medication. Decision to continue Cymbalta will be deferred to the psychiatrist. LIZZIE GOLDSTEIN MD Sep 10, 2020 13:24
--- NOTE | 2020-09-10 15:28 | NUR ---
PIRP P-ALTERED THOUGHT PROCESS, DTO, ELOPEMENT RISK, RISK FOR FALLS I-Q 15 MINUTE CHECKS, PROVIDE SAFE ENVIRONMENT. MEDICATIONS ORDERED BY THE PHYSICIAN. PROVIDE TASK ORIENTED ACTIVITIES, ENCOURAGE GROUP PARTICIPATION. RE ORIENT AND RE DIRECT WITH VERBALIZATION NEEDED. 1:1 INTERVENTION TO ALLOW PT TO EXPRESS FEELINGS AND THOUGHTS. PROVIDE SIMPLE INSTRUCTIONS. ASSESS FOR DEPRESSION, ANXIETY AND PSYCHOTIC SYMPTOMS. R-PT IS CHECKED EVERY 15 MINUTES FOR SAFETY. PT TAKES ALL MEDICATIONS DIRECTED. PT IS ALERT ORIENTED ONLY TO SELF. NEEDS TO BE REORIENTED TO WHERE SHE IS AND WHY THROUGHOUT THE SHIFT. PT HAS A BRIGHT AND CHEERFUL AFFECT. DENIES DEPRESSION, ANXIETY, SI/HI. NO HALLUCINATION OR DELUSIONS NOTED. PT HAS ASKED WHEN SHE WILL BE LEAVING. DID ASK ONCE ABOUT HOW TO GET OUT OF HERE. REDIRECTED EASILY. P-RE-ORIENT AND RE-DIRECT NEEDED, PROVIDE POSITIVE FEEDBACK
[2020-09-10 19:45] VITALS: BP 146/75
[2020-09-10] MEDS ORDERED: CRESTOR PO ONE (20:12)
[2020-09-10] MEDS: ZYPREXA ZYDIS SL SCH (20:12)
[2020-09-10] MEDS: VITAMIN D PO SCH (20:12)
[2020-09-10] MEDS: CRESTOR PO SCH (20:13)
[2020-09-10] MEDS: LANTUS SQ SCH (20:41)
--- NOTE | 2020-09-11 05:11 | NUR ---
P.I.R.P. P. ALTERATION IN THOUGHT PROCESS/CONFUSION/DELUSIONS I. PROVIDE EVERY 15 MINUTE CHECKS, PROVIDE SAFE ENVIRONMENT, PROVIDE MEDICATIONS ORDERED PER MD. PROVIDE TASK ORIENTED GROUP ACTIVITY AND ENCOURAGE PARTICIPATION, RE ORIENT AND RE DIRECT NEEDED. 1:1 INTERVENTION TO ALLOW PATIENT TO EXPRESS FEELINGS, GIVE SIMPLE INSTRUCTIONS AND EDUCATION REFERENCE MEDS AND SITUATION. MONITOR FOR CHANGES IN COGNITIVE STATUS. R. PATIENT IS ALERT, CONFUSED OF PLACE AND TIME, CONTINUES FORGETFUL ESPECIALLY OF PLACEMENT OF GLASSES AND BECOMES ALMOST OBSESSED OVER THE GLASSES UNTIL FOUND. ATTENDED GROUP ACTIVITY, TOOK MEDS ORDERED, NO PRN MEDS THIS SHIFT, REPORTS ANXIETY A 3 AND DEPRESSION A 2. WANDERED IN HALLWAY AT TIMES, HAS HAD DELUSIONS, TALKED ABOUT SON AND FAMILY GETTING TOGETHER THIS WEEKEND AND SHE HAD TO COME BACK HER SO SHE MISSED ALOT OF SEEING FAMILY. NO FALLS. NO BEHAVIORS THIS SHIFT. P. CONTINUE CURRENT PLAN OF CARE.
[2020-09-11] MEDS: LEVOTHYROXINE SODIUM PO SCH (05:58)
[2020-09-11 07:56] VITALS: BP 143/103
[2020-09-11] MEDS: GLUCOPHAGE PO SCH ×2 (09:01→17:08)
[2020-09-11] MEDS: MACROBID PO SCH ×2 (09:02→20:12)
[2020-09-11] MEDS: NORVASC PO SCH (09:02)
[2020-09-11] MEDS: PEPCID PO SCH ×2 (09:02→20:12)
[2020-09-11] MEDS: ASPIRIN EC PO SCH (09:02)
[2020-09-11] MEDS: DEPAKOTE EC PO SCH ×2 (09:02→20:12)
--- NOTE | 2020-09-11 11:07 | PRM.PN ---
Mood: its doing ok, Sleep: 8.25 hours, average 11 as she sleeps in (son's says her normal) Appetite: I ate good, about to have lunch Suidical thoughts: denies Homicidal thoughts: denies Recent stressors: denies Family support: son Aggressive Behavior: denies Ability to Perform ADL'sc: can dress herself, they stay outside, hand me towel Psychotic sympstoms: ah? denies Manic Symptoms: less hyperactive, Family,PT,Surgical,&Current HX: (1) Bipolar 1 disorder, manic, moderate (2) Personality disorder in adult (3) Delusional disorder Anxity Symptoms: little during Rebecca, memories, little sad Anger/Irritablility: denies Muscle Strength & Tone: WNL Gait & Station: Normal stance/post/gait Appearance: Disheveled Attitude & Behaviour: Cooperative/Pleasant Mood & Affect: Full Orientation: Disoriented to time, Disoriented to situation Attention/Concentration: Fair attention, Fair concentration Speech: Reg rate/vol/rhyth/prosod Judgement/Insight: Fair judgement, Poor insight Thought Process: Circumferential Language: Emirati Thought content/Abnormal/Psych: Delusions Fund of Knowledge: WNL Associations: Other Constitutional: None Neurological: None Psychiatric: Psychosis [place] I: delusional disorder, bipolar Assessment/Plan Assessment/Plan Plan Nursing: she likes to sleep every morning declines breakfast daily not physically aggressive yesterday less verbal aggression, mostly appropriate and kind to staff, did well with Rebecca and gifts she received. patient: pretty good how was your rebecca? "I spent it here it was good," I don't think so- son's just one that I talk to gifts- she asks nursing staff, Current Medications Medications (Trade) Dose Ordered Sig/Mary Jane PRN Reason Start Time Stop Time Status Last Admin Rosuvastatin Calcium (Crestor) 10 mg HS 09/08/20 21:00 10/08/20 20:59 09/10/20 20:13 Vital Signs Date Time Temp Pulse Resp B/P (MAP) Pulse Ox O2 Delivery O2 Flow Rate FiO2 09/11/20 09:02 113 143/103 09/11/20 07:56 97.8 20 98 Room Air Allergies Coded Allergies Type Severity Reaction Last Updated Verified heparin Allergy Unknown 09/01/20 Yes summary: reports not recalling gifts yesterday- but appears she did not want to problem solve, unexcited about the blanket that was on her bed, showed it to me after staff reminded her, she is otherwise bright and welcoming 1. CONTINUE BEHAVIORAL HEALTH MANAGEMENT. 2. CONTINUE CURRENT MEDICATIONS PRESCRIBED. 3. ALL PATIENT QUESTIONS ANSWERED RELATED TO MEDICATIONS, PLAN OF CARE, AND EX PECTED OUTCOMES. 4. SAFETY PLAN DISCUSSED. 5. order valproic level for Sunday SALLY MANZANO NP Sep 11, 2020 11:07
--- NOTE | 2020-09-11 13:39 | NUR ---
VISIT SON CAME TO VISIT WITH PT. VISIT WAS GOING WELL, PT WAS SITTING ON BED VISITING WITH SON. THEY WERE TALKING AND GETTING ALONG. THEN SON CAME TO DESK AND SAID THAT PT HAD TOLD HIM TO LEAVE. ASKED HOW TO GET OUT OF HERE. WALKED SON TO THE DOOR TO LET HIM OUT. WAS TRYING TO TALK TO THE SON AND PT WAS COMING DOWN THE DURAN SAYING "DID HE TELL YOU I KICKED HIM OUT. I DON'T WANT HIM HERE ANYMORE" SON WALKED AWAY. ATTEMPTED TO GET PT TO TALK NICER TO SON. PT SAID "I DON'T WANT TO TALK TO HIM, OR BE NEAR HIM" "I DON'T EVER WANT TO CALL HIM AGAIN"
--- NOTE | 2020-09-11 17:33 | NUR ---
PIRP: P: ALTERATION IN MOOD, ALTERATION IN THOUGHT PROCESS I: PROVIDE MEDICATIONS ORDERED BY PHYSICIAN. ENCOURAGE ATTENDANCE AND PARTICIPATION OF ALL GROUPS. ALLOW PATIENT TO VOICE FEELINGS AND CONCERNS. PROVIDE SAFE ENVIRONMENT. ASSISTED PATIENT FOR PREVENTION OF FALLS, SUPPLY PATIENT WITH NONSLIP SOCKS. MONITOR PATIENT FOR PSYCHOTIC SYMPTOMS AND REPORT TO PHYSICIANS. ASSESS PATIENT FOR DEPRESSION, ANXIETY AND SUICIDAL THOUGHTS. R: PATIENT HAS TAKEN ALL MEDICATIONS ORDERED AND HAS REMAINED IN HER ROOM THIS MORNING UNTIL ABOUT 1100. SHE WAS THEN UP FOR LUNCH AND HAS WANDERED HALLWAY. SHE HAS BEEN EASY TO REDIRECT AND HAS BEEN COOPERATIVE TODAY. THE DAY GOES ON SHE IS MORE CONFUSED AND DISORIENTED. P: CONTINUE CURRENT PLAN OF CARE.
[2020-09-11 19:41] VITALS: BP 122/66
[2020-09-11] MEDS ORDERED: CRESTOR PO ONE (19:50)
[2020-09-11] MEDS: CRESTOR PO SCH (20:12)
[2020-09-11] MEDS: ZYPREXA ZYDIS SL SCH (20:12)
[2020-09-11] MEDS: VITAMIN D PO SCH (20:12)
[2020-09-11] MEDS: LANTUS SQ SCH (20:20)
--- NOTE | 2020-09-11 20:26 | NUR ---
PIRP PROBLEM- DELUSIONAL DISORDER, SHORT TERM MEMORY LOSS. INTERVENTIONS- REORIENTATE TO SURROUNDINGS, ENCOURAGE MEMORY INCREASING ACTIVITIES, ENCOURAGE EXPRESSION OF FEELINGS, ENCOURAGE PARTICIPATION IN GROUP THERAPY, MONITOR FREQUENCY AND INTENSITY OF ANXIETY AND DEPRESSION, MONITOR FOR SUICIDAL/HOMICIDAL THOUGHTS OR BEHAVIORS, GIVE MEDICATIONS ORDERED. RESPONSE- PT VERBALIZED NO SUICIDAL/HOMICIDAL THOUGHTS, PT PARTICIPATED IN GROUP ACTIVITIES, PT RATED DEPRESSION OF 5 AND ANXIETY OF 4 AEB SCALE OF 1-10, PT REORIENTATED APPROPRIATELY TO SURROUNDINGS, MEDICATIONS GIVEN ORDERED. PLAN- CONTINUE TO MONITOR PT FOR SUICIDAL/HOMICIDAL IDEATIONS, ANXIETY AND DEPRESSION, REINFORCE COPING MECHANISMS, ENCOURAGE EXPRESSION OF THOUGHTS, CONTINUE MEDICATION REGIME, ENCOURAGE MEMORY INCREASING ACTIVITIES.
[2020-09-12] MEDS: LEVOTHYROXINE SODIUM PO SCH (05:47)
[2020-09-12 08:08] VITALS: BP 134/77
[2020-09-12] MEDS: DEPAKOTE EC PO SCH ×2 (08:09→21:00)
[2020-09-12] MEDS: NORVASC PO SCH (08:09)
[2020-09-12] MEDS: GLUCOPHAGE PO SCH ×2 (08:10→16:43)
[2020-09-12] MEDS: ASPIRIN EC PO SCH (08:10)
[2020-09-12] MEDS: PEPCID PO SCH ×2 (08:10→21:00)
[2020-09-12] MEDS: MACROBID PO SCH ×2 (08:10→21:00)
--- NOTE | 2020-09-12 11:08 | PRM.PN ---
Mood: taking a good ole nap Sleep: 9.5 hours Appetite: says had good lunch, Suidical thoughts: more and more I am never getting out of here Recent stressors: always stuck in snf Family support: say's womens, groups, yazdanism, does well with it Aggressive Behavior: not present to staff Ability to Perform ADL'sc: on her own, reminders of when for showering Psychotic sympstoms: denies recall on some items Manic Symptoms: I am lots of fun with the right people Living situation: discharge to snf, has been asked to leave from numerous Family,PT,Surgical,&Current HX: (1) Bipolar 1 disorder, manic, moderate (2) Personality disorder in adult (3) Delusional disorder Muscle Strength & Tone: WNL Gait & Station: Normal stance/post/gait Appearance: Disheveled Attitude & Behaviour: Cooperative/Pleasant Mood & Affect: Full, Constricted Orientation: Disoriented to situation Attention/Concentration: Fair attention, Fair concentration Speech: Reg rate/vol/rhyth/prosod Judgement/Insight: Fair judgement, Poor insight Thought Process: Circumferential Language: Guamanian Thought content/Abnormal/Psych: Delusions Fund of Knowledge: WNL Associations: Other Constitutional: None Neurological: None Psychiatric: Psychosis [place] I: delusional, bipolar, [place] IV: discharge to snf Assessment/Plan Assessment/Plan Plan Nursing: she has not been aggressive today or last evening has been pleasant, she appeared to be happy to see son although she had negative look on her face, talking pressure to son, told him to leave unit she continues to sleep in most mornings, patient: conversations today talking of needing chemistry department chair, she admits bertha Thompson, and his son, am I ever getting out of here I need to learn with your anger i seem to care, does anyone come to visit, she had words with him, chased him off the unit he wanted to tell me how to run my life, not ready to let go of that, I already let him have signatures on anything, thn asks about if she is remembering correctly; did we have a blow up Current Medications Medications (Trade) Dose Ordered Sig/Mary Jane PRN Reason Start Time Stop Time Status Last Admin Rosuvastatin Calcium (Crestor) 10 mg HS 09/08/20 21:00 10/08/20 20:59 09/10/20 20:13 Vital Signs Date Time Temp Pulse Resp B/P (MAP) Pulse Ox O2 Delivery O2 Flow Rate FiO2 09/11/20 09:02 113 143/103 09/11/20 07:56 97.8 20 98 Room Air Allergies Coded Allergies Type Severity Reaction Last Updated Verified heparin Allergy Unknown 09/01/20 Yes summary: appearing oriented portion of conversation, asks if anyone visits her, then tells me about talking to her son, once discussing how she may need a rep payee due to number of hospitalizations she is no longer recalling talking to her son, does appear thought blocking, not accepting of need for care, thought blocking- not accepting snf as future or others managing her funds, reports not recalling gifts yesterday- but appears she did not want to problem solve, unexcited about the blanket that was on her bed, showed it to me after staff reminded her, she is otherwise bright and welcoming 1. CONTINUE BEHAVIORAL HEALTH MANAGEMENT. 2. CONTINUE CURRENT MEDICATIONS PRESCRIBED. 3. ALL PATIENT QUESTIONS ANSWERED RELATED TO MEDICATIONS, PLAN OF CARE, AND EXPECTED OUTCOMES. 4. SAFETY PLAN DISCUSSED. 5. order valproic level for Sunday and as previously contained a number of low levels SALLY MANZANO NP Sep 12, 2020 11:08
--- NOTE | 2020-09-12 17:23 | PRM.PN ---
PROGRESS NOTE S/O/A/P Chief complaint: Medical management. Subjective: She feels well, no specific complaint. Objective: Vital Signs Date Time Temp Pulse Resp B/P (MAP) Pulse Ox O2 Delivery O2 Flow Rate FiO2 09/12/20 08:09 96 134/77 09/12/20 08:08 97.8 20 100 09/11/20 19:41 Room Air - GENERAL:no in distress. oriented to self and time but not to place or situation.alert. - EYES: EOMI. Anicteric. - HENT: moist mucous membranes. No scleral icterus. No cervical lymphadenopathy. - LUNGS: normal air entry bilateraly, Clear to auscultation bilaterally. No accessory muscle use. - CARDIOVASCULAR: Regular rate and rhythm. No murmur. No JVD. - ABDOMEN: Soft, non-tender,distended. - EXTREMITIES: No edema. Non-tender. - NEUROLOGIC: No focal neurological deficits. CN II-XII grossly intact. - PSYCHIATRIC: Cooperative. anxious. LABORATORY DATA: Laboratory Tests Test 09/11/20 19:43 09/12/20 08:01 09/12/20 16:39 Bedside Glucose 171 101 126 Current Medications Medications (Trade) Dose Ordered Sig/Mary Jane Route PRN Reason Start Time Stop Time Status Last Admin Dose Admin Hydroxyzine HCl (Vistaril) 25 mg Q6HR PRN IM anxiety 09/01/20 16:00 10/01/20 15:59 Hydroxyzine HCl (Atarax) 25 mg Q6HR PRN PO anxiety 09/01/20 16:00 10/01/20 15:59 09/07/20 17:03 Olanzapine (Zyprexa) 10 mg Q6HR PRN IM psychosis/anxiety 09/01/20 16:00 10/01/20 15:59 Olanzapine (Zyprexa Zydis) 10 mg Q6HR PRN SL psychosis/anxiety 09/01/20 16:00 10/01/20 15:59 09/07/20 15:40 Acetaminophen (Tylenol) 650 mg Q6H PRN PO PAIN 1 - 3 09/01/20 21:00 10/01/20 20:59 09/04/20 22:24 Amlodipine Besylate (Norvasc) 5 mg DAILY PO 09/02/20 09:00 10/02/20 08:59 09/12/20 08:09 Aspirin (Aspirin Ec) 81 mg DAILY PO 09/02/20 09:00 10/02/20 08:59 09/12/20 08:10 Cholecalciferol (Vitamin D) 2,000 unit DAILY24 PO 09/01/20 21:00 09/04/20 07:30 DC 09/03/20 20:42 Donepezil HCl (Aricept) 5 mg HS PO 09/01/20 21:00 09/01/20 20:49 DC 09/01/20 20:40 Famotidine (Pepcid) 20 mg BID PO 09/01/20 21:00 10/01/20 20:59 09/12/20 08:10 Insulin Glargine (Lantus) 12 unit DAILY24 SQ 09/01/20 21:00 10/01/20 20:59 09/11/20 20:20 Levothyroxine Sodium (Levothyroxine Sodium) 25 mcg ACB PO 09/02/20 06:30 10/02/20 06:29 09/12/20 05:47 Nitrofurantoin Macrocrystals (Macrobid) 100 mg BID PO 09/01/20 21:00 10/01/20 20:59 09/12/20 08:10 Metformin HCl (Glucophage) 500 mg 0730,1630 PO 09/02/20 07:30 10/02/20 07:29 09/12/20 16:43 Cholecalciferol (Vitamin D) 1,000 unit STK-MED ONCE .ROUTE 09/01/20 20:38 09/01/20 20:38 DC Donepezil HCl (Aricept Odt) 5 mg STK-MED ONCE .ROUTE 09/01/20 20:38 09/01/20 20:39 DC Donepezil HCl (Aricept Odt) 5 mg HS PO 09/01/20 21:00 09/04/20 12:24 DC 09/03/20 20:38 Olanzapine (Zyprexa Zydis) 10 mg HS SL 09/02/20 21:00 09/07/20 17:29 DC 09/06/20 20:08 Cholecalciferol (Vitamin D) 1,000 unit STK-MED ONCE .ROUTE 09/03/20 20:42 09/03/20 20:42 DC Cholecalciferol (Vitamin D) 2,000 unit HS PO 09/04/20 21:00 10/04/20 20:59 09/11/20 20:12 Donepezil HCl (Aricept Odt) 10 mg HS PO 09/04/20 21:00 09/08/20 12:59 DC 09/07/20 20:03 Miscellaneous Medication (Namenda) 5 mg BID PO 09/04/20 12:30 09/08/20 12:59 DC 09/08/20 08:09 Divalproex Sodium (Depakote Er) 250 mg BID PO 09/05/20 11:30 09/07/20 17:29 DC 09/07/20 09:12 Divalproex Sodium (Depakote Ec) 500 mg BID PO 09/07/20 21:00 10/07/20 20:59 09/12/20 08:09 Olanzapine (Zyprexa Zydis) 15 mg HS SL 09/07/20 21:00 10/07/20 20:59 09/11/20 20:12 Rosuvastatin Calcium (Crestor) 10 mg HS PO 09/08/20 21:00 10/08/20 20:59 09/11/20 20:12 Rosuvastatin Calcium (Crestor) 10 mg STK-MED ONCE PO 09/08/20 19:59 09/08/20 19:59 DC Rosuvastatin Calcium (Crestor) 10 mg STK-MED ONCE PO 09/09/20 19:34 09/09/20 19:34 DC Rosuvastatin Calcium (Crestor) 10 mg STK-MED ONCE PO 09/10/20 20:12 09/10/20 20:13 DC Rosuvastatin Calcium (Crestor) 10 mg STK-MED ONCE PO 09/11/20 19:50 09/11/20 19:51 DC Assessment and plan: 70 years old female with history of dementia and bipolar disorder presented with progressive behavior. #History of hypertension: Controlled. Continue home medications. #History of hypothyroidism: Will continue same dose of 25 mcg daily. # Hypercholesterolemia: LDL is 108, goal is below 70. Plan: Crestor 10 mg p.o. nightly. #History of diabetes mellitus type 2: Hemoglobin A1c is within target for her age. Continue Lantus 12 units in the morning. c/w Metformin 500 mg p.o. BID. #Diabetic neuropathy: She is on Cymbalta at home. We will hold the medication at this moment as she is on antipsychotic medication. Decision to continue Cymbalta will be deferred to the psychiatrist. LIZZIE GOLDSTEIN MD Sep 12, 2020 17:23
--- NOTE | 2020-09-12 17:59 | NUR ---
PIRP: P: ALTERATION IN MOOD, ALTERATION IN THOUGHT PROCESS I: PROVIDE MEDICATIONS ORDERED BY PHYSICIAN. ENCOURAGE ATTENDANCE AND PARTICIPATION OF ALL GROUPS. ALLOW PATIENT TO VOICE FEELINGS AND CONCERNS. PROVIDE SAFE ENVIRONMENT. ASSISTED PATIENT FOR PREVENTION OF FALLS, SUPPLY PATIENT WITH NONSLIP SOCKS. MONITOR PATIENT FOR PSYCHOTIC SYMPTOMS AND REPORT TO PHYSICIANS. ASSESS PATIENT FOR DEPRESSION, ANXIETY AND SUICIDAL THOUGHTS. R: PATIENT HAS TAKEN ALL MEDICATION ORDERED AND HAS EATEN AND DRANK WELL. SHE IS CONFUSED AND DISORIENTED. SHE IS INTRUSIVE AT TIMES AND UNABLE TO REDIRECT HER BEHAVIORS AT TIMES. SHE HAS MADE THREATENING STATEMENTS AND HAS PUSHED HER BODY IN THIS NURSES PERSONAL SPACE. P: CONTINUE CURRENT PLAN OF CARE.
[2020-09-12] MEDS: TYLENOL PO PRN (19:58)
[2020-09-12 20:08] VITALS: BP 130/66
[2020-09-12] MEDS: LANTUS SQ SCH (20:36)
[2020-09-12] MEDS: ZYPREXA ZYDIS SL SCH (21:00)
[2020-09-12] MEDS: VITAMIN D PO SCH (21:00)
[2020-09-12] MEDS: CRESTOR PO SCH (21:00)
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
[2020-09-13] MEDS: LEVOTHYROXINE SODIUM PO SCH (06:13)
[2020-09-13] MEDS: GLUCOPHAGE PO SCH ×2 (07:30→16:52)
[2020-09-13 07:47] VITALS: BP 134/82
[2020-09-13] MEDS: NORVASC PO SCH (08:07)
[2020-09-13] MEDS: MACROBID PO SCH ×2 (08:07→20:14)
[2020-09-13] MEDS: ASPIRIN EC PO SCH (08:07)
[2020-09-13] MEDS: PEPCID PO SCH ×2 (08:07→20:14)
[2020-09-13] MEDS: DEPAKOTE EC PO SCH ×2 (08:08→20:15)
--- NOTE | 2020-09-13 08:09 | DIET.OP ---
Nutrition Asmt/Malnutrit 2-17 Actual Date of Review: Sep 13, 2020 Diagnosis: delusional disorder Pertinent Medical Hx/Surgical: DM-2, HTN, dementia, bipolar disorder, MDD, hypothyroidism. Subjective Information: telehealth f/u - pt admitted from care home for worsening mood/agression. BG 89-126 mg/dl yesterday and today. PO intake seems to have improved with 80, 20, 75% of B, L, D yesterday respectively and snacks. Likely meeting her nutrition needs - RD to continue to follow Updated wt would be greatly appreciated Current Diet Order/Nutrition S: 1999 ar ADA Patient /S.O: Not Indicated Height (Feet): 5 Height (Inches): 9 Current Weight: 180 (estimated by staff) Weight Status: Overweight (per staff's estimated wt ) Food Allergies: No Cultural/Ethnic/Faith Yaritza: none known BEE in Kcals: Use Current Weight Calories/Kcals/Kg: MSJ 1.2-1.4 Kcals Calculated: 4557-3908 kcal Protein: Use Current Weight Protein g/k.8-1g/kg Protein Calculated: 65-82g Fluid: ml: 1399-8268 ml or 1 ml/kcal Nutritional Problem: No Cur. Nutritional Probl Recommendations by RD: Add supplement feedings RD Comments: 1. Continue 1999 ar ADA diet, encouraging po intake. Small frequent meals and snacks. 2. Recommend offering Glucerna oral supplement if po intake is below 40% of meal. 3. Continue to monitor BG and correct as indicated. 4. Recommend a weight on the chair scale for better assessment of wt status. 5. RD to monitor po intake and weight. Diet education not appropriate at this time. Expected Outcomes 65-100% po intake of meals and snacks to meet estimated needs the next 3 days. discharge on consistent carb diet. Malnutrtion/Nutrition Risk Edu: No MD Notificiation Needed?: No Katy Dodson Sep 13, 2020 08:09
[2020-09-13 08:25] LABS: BASOPHIL % 0.7 % (0.0-0.2); LYMPHOCYTES # 2.26 10^3/uL1 (1.0-4.8); MEAN CORP HGB 29.3 pg (26-34); MONOCYTES # 0.4 10^3/uL (0.3-0.8); MONOCYTES % 9.7 % (5.0-12.0); NEUTROPHIL # 1.8 10^3/uL (1.8-7.7); NEUTROPHILS % 38.7 % (41.0-85.0); RED CELL DISTRIBUTION WIDTH 14.4 % (11.5-14.5)
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
--- NOTE | 2020-09-13 16:19 | NUR ---
TELEMED PT WAS SEEN BY Delma MANZANO NP. RECEIVED ORDERS TO DECREASE DEPAKOTE AND START SCHEDULED DOSE OF HYDROXYZINE, SEE EMR.
[2020-09-13] MEDS: ATARAX PO SCH (16:54)
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
[2020-09-13 19:52] VITALS: BP 141/73
[2020-09-13] MEDS: VITAMIN D PO SCH (20:13)
[2020-09-13] MEDS: ZYPREXA ZYDIS SL SCH (20:14)
[2020-09-13] MEDS ORDERED: CRESTOR PO ONE (20:15)
[2020-09-13] MEDS: CRESTOR PO SCH (20:15)
[2020-09-13] MEDS: LANTUS SQ SCH (20:53)
[2020-09-13] MEDS: ATARAX PO PRN (23:34)
--- NOTE | 2020-09-13 23:38 | NUR ---
Behavior pt.remains awake,restless and up and down to nurses station asking about her cell phone. Pt.thinks she broke her phone today,several attempts made to redirect without success, she is delusional at this time stating she climb mountain and fell off and her son's friend has majestic telles, pt. received Atarax at this time and was assisted to bed, will cont to monitor pt'a behavior
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
[2020-09-14] MEDS: LEVOTHYROXINE SODIUM PO SCH (05:36)
[2020-09-14] MEDS: GLUCOPHAGE PO SCH ×2 (09:40→16:48)
[2020-09-14] MEDS: PEPCID PO SCH ×2 (09:40→20:27)
[2020-09-14] MEDS: NORVASC PO SCH (09:40)
[2020-09-14] MEDS: ASPIRIN EC PO SCH (09:40)
[2020-09-14] MEDS: MACROBID PO SCH ×2 (09:40→20:27)
[2020-09-14] MEDS: DEPAKOTE EC PO SCH ×2 (09:40→20:28)
[2020-09-14 10:12] VITALS: BP 139/59
[2020-09-14] MEDS: ATARAX PO SCH (14:51)
--- NOTE | 2020-09-14 16:08 | PRM.PN ---
Mood: good, Sleep: 5.5 hours, slept in for this total Appetite: good Suidical thoughts: denies Homicidal thoughts: denies Recent stressors: I used to read, books based on truth, added romance Family support: not talking of son today Aggressive Behavior: not present today Ability to Perform ADL'sc: by herself, directed to routine by staff Psychotic sympstoms: not responding to internal Manic Symptoms: can talk rapidly, some restlessness Living situation: between placements Illicit Drug usec: na Alcoholo use: na Tobacco use: na Family,PT,Surgical,&Current HX: (1) Delusional disorder (2) Bipolar 1 disorder, manic, moderate (3) Personality disorder in adult Anxity Symptoms: denies Anger/Irritablility: denies Muscle Strength & Tone: WNL Gait & Station: WNL Appearance: Well groomed/hygience Attitude & Behaviour: Cooperative/Pleasant Mood & Affect: Full Orientation: Disoriented to situation Attention/Concentration: Fair attention, Fair concentration Speech: Reg rate/vol/rhyth/prosod Judgement/Insight: Fair judgement, Poor insight Thought Process: Circumferential Language: Gambian Thought content/Abnormal/Psych: Delusions (perceptions not always accurate ) Fund of Knowledge: WNL Associations: Other Constitutional: None Neurological: None Psychiatric: Depressed, Psychosis [place] I: delusional disorder, bipolar Assessment/Plan Assessment/Plan Plan Nursing: participating on the unit- randomly, not for extended time, becomes restless, then goes to her room she won't color, does not like games, she does not stay for gospel activities she made comments of getting a pill - to help her find a man, not recognizing renal social worker today, had been upset with her facilities have told renal social worker they have reviewed and declined patient previously patient: likes romance books based on some truth, gone with the wind, beginning to end shelby and jenny- read it, skipped over language part she did not understand, eyes not good enough to cross stitch, Laboratory Tests 09/12/20 16:39: Bedside Glucose 126H 09/12/20 20:02: Bedside Glucose 125H 09/13/20 07:37: Bedside Glucose 89 09/13/20 08:02: White Blood Count 4.5, Red Blood Count 3.99L, Hemoglobin 11.7L, Hematocrit 35.1L , Mean Corpuscular Volume 88.0, Mean Corpuscular Hemoglobin 29.3, Mean Corpuscular Hemoglobin Concent 33.3, Red Cell Distribution Width 14.4, Platelet Count 183, Mean Platelet Volume 10.3, Neutrophils (%) (Auto) 38.7L, Lymphocytes (%) (Auto) 50.0H, Monocytes (%) (Auto) 9.7, Neutrophils # (Auto) 1.8, Lymphocytes # (Auto) 2.26, Monocytes # (Auto) 0.4, Absolute Immature Granulocyte (auto 0.04, Absolute Eosinophils (auto) 0.0, Immature Granulocytes % 0.90H, Eosinophils % 0.0, Basophils % 0.7H, Basophils # 0.0, Valproic Acid (Depakene) Level 102H Vital Signs Date Time Temp Pulse Resp B/P (MAP) Pulse Ox O2 Delivery O2 Flow Rate FiO2 09/14/20 10:12 97.8 97 20 139/59 (85) 99 Room Air Allergies Coded Allergies Type Severity Reaction Last Updated Verified heparin Allergy Unknown 09/01/20 Yes Current Medications Medications (Trade) Dose Ordered Sig/Mary Jane PRN Reason Start Time Stop Time Status Last Admin Divalproex Sodium (Depakote Ec) 375 mg BID 09/13/20 21:00 10/13/20 20:59 09/14/20 09:40 Hydroxyzine HCl (Atarax) 25 mg 1500 09/13/20 17:00 10/13/20 16:59 09/14/20 14:51 Psychotropics: depakote dr 375mg po bid olanzapine 15mg daily hs hydroxizine scheduled every 1500 PRN, last given 09/07/20 zyprexa prn, summary: improved orientation being noted in conversation, she does not appear to humor orientation questions often just says she knows, appears to retain some information from previous days and other times asks staff, did not sleep well last night, she is pleasant with me today, entire conversation but admits she wants to go and eat her dinner 1. CONTINUE BEHAVIORAL HEALTH MANAGEMENT. 2. CONTINUE CURRENT MEDICATIONS PRESCRIBED. 3. ALL PATIENT QUESTIONS ANSWERED RELATED TO MEDICATIONS, PLAN OF CARE, AND EXPECTED OUTCOMES. 4. SAFETY PLAN DISCUSSED. SALLY MANZANO NP Sep 14, 2020 16:08
--- NOTE | 2020-09-14 17:28 | NUR ---
PIRP P: ALTERATION IN MOOD, ALTERED THOUGHT PROCESS, CONFUSION I: Q15 MIN MONITORING, ASSESS FOR DEPRESSION/ANXIETY, ASSESS FOR PSYCHOTIC SYMPTOMS, PROVIDE 1:1 TO ENCOURAGE EXPRESSION OF FEELINGS, REDIRECT WITH VERBALIZATION, RE-ORIENT TO SURROUNDINGS NEEDED, PROVIDE SAFE AND SUPPORTIVE ENVIRONMENT R: PT HAS ANXIOUS AFFECT THROUGHOUT SHIFT, IS PLEASANT WITH APPROACH. DENIES FEELINGS OF DEPRESSION AND ANXIETY, HAS NOT MADE HOPELESS STATEMENTS THIS SHIFT. DENIES SUICIDAL/HOMICIDAL IDEATION, HAS BEEN ABLE TO BE REDIRECTED WITH VERBALIZATION. NO HALLUCINATIONS NOTED, UNABLE TO DETERMINE IF DELUSIONAL AT THIS TIME. HAS NOT PARTICIPATED IN GROUP ACTIVITIES AND HAS REFUSED BATHING. TAKES MEDICATIONS ORDERED AND COME OUT TO DAY ROOM FOR MEALS AND SNACKS. HAS NOT EXHIBITED THREATENING OR COMBATIVE BEHAVIORS. P: REINFORCE RELAXATION TECHNIQUES, RE-ORIENT TO SURROUNDINGS, ENCOURAGE SOCIAL INTERACTION
[2020-09-14 19:34] VITALS: BP 124/73
[2020-09-14] MEDS: CRESTOR PO SCH (20:28)
[2020-09-14] MEDS: VITAMIN D PO SCH (20:28)
[2020-09-14] MEDS ORDERED: CRESTOR PO ONE (20:28)
[2020-09-14] MEDS: ZYPREXA ZYDIS SL SCH (20:28)
[2020-09-14] MEDS: LANTUS SQ SCH (21:01)
[2020-09-15] MEDS: TYLENOL PO PRN ×2 (00:04→23:59)
[2020-09-15] MEDS: ZYPREXA ZYDIS SL PRN ×2 (01:28→23:56)
--- NOTE | 2020-09-15 01:28 | NUR ---
ANXIETY/RESTLESSNESS/PSYCHOSIS PATIENT HAS WANDERED IN AND OUT OF ROOM MULTIPLE TIMES SINCE 0000, COMPLAINED OF GENERAL ACHING, ACETAMINOPHEN 650 MG GIVEN AT 0004, VOICED WHEN SHE LAYS DOWN SHE BEGINS TO THINK OF LOTS OF THINGS, CANT QUITE THINKING OF THINGS, WANTING SOMETHING TO EAT THEN TO DRINK, COMPLAINED OF LEG CRAMPS, WARM CLOTHS PLACED TO LEGS WHICH APPEARED TO BE EFFECTIVE, WAS REDIRECTED BACK TO ROOM EACH TIME TO REMAIN FOR SHORT PERIOD ONLY. PATIENT TALKING ABOUT HER PHONE, NOT SURE WHY SHE IS HERE, WHEN REVIEWING REASON ON BHU AND IMPORTANCE OF GETTING ADEQUATE SLEEP AT THIS ENTRY PATIENT VOICED " PLEASE DONT TALK ABOUT THAT AGAIN YOU HAVE ALREADY TOLD ME THIS 3 TIMES." THIS IS ACCURATE THIS NURSE HAS DISCUSSED THIS WITH PATIENT 3 TIMES THIS SHIFT. NOTED PATIENT HAD NOT SLEPT BUT 3.5 HOURS PREVIOUS NIGHT, THEN SLEPT OFF AND ON 5.25 HOURS DURING DAYTIME. OLANZAPINE 10 MG ORAL ADMINISTERED AT THIS ENTRY. PATIENT COOPERATIVE WITH MED.
--- NOTE | 2020-09-15 04:10 | NUR ---
P.I.R.P. P. ALTERATION IN THOUGHT PROCESS/CONFUSION/DELUSIONS/ANXIETY I. PROVIDE EVERY 15 MINUTE CHECKS, PROVIDE SAFE ENVIRONMENT, PROVIDE MEDICATIONS ORDERED PER MD. PROVIDE TASK ORIENTED GROUP ACTIVITY AND ENCOURAGE PARTICIPATION, RE ORIENT AND RE DIRECT NEEDED. APPROACH IN A CALM MANNER, 1:1 INTERVENTION TO ALLOW PATIENT TO EXPRESS FEELINGS, GIVE SIMPLE INSTRUCTIONS AND EDUCATION REFERENCE MEDS AND SITUATION. MONITOR FOR CHANGES IN COGNITIVE STATUS. R. PATIENT IS ALERT, CONFUSED OF PLACE AND TIME, CONTINUES FORGETFUL/CONFUSED , REPEATS QUESTIONS MULTIPLE TIMES. ESPECIALLY ABOUT GLASSES WHICH HAVE BROKEN. ATTENDED GROUP ACTIVITY TOOK MEDS ORDERED, REPORTED PAIN 7 GENERALIZED AND RECEIVED TYLENOL 650 MG, DENIES ANXIETY OR DEPRESSION BUT WAS NOTED ANXIOUS THROUGHOUT SHIFT, WANDERED IN AND OUT OF ROOM, UNABLE TO SLEEP, WAS GIVEN OLANZAPINE FOR PSYCHOTIC, ANXIETY/BEHAVIORS THIS SHIFT WAS PARTIAL EFFECTIVE. HAS HAD DELUSIONS, TALKED ABOUT HER SON BREAKING HER GLASSES AND HER BREAKING HER CELLPHONE TODAY. PATIENT HAS VOICED WHEN SHE LAYS DOWN SHE THINKS ABOUT THINGS AND CAN NOT REST. P. CONTINUE CURRENT PLAN OF CARE.
[2020-09-15] MEDS: LEVOTHYROXINE SODIUM PO SCH (05:43)
[2020-09-15 08:38] VITALS: BP 130/68
[2020-09-15] MEDS: MACROBID PO SCH ×2 (08:44→21:00)
[2020-09-15] MEDS: PEPCID PO SCH ×2 (08:44→21:00)
[2020-09-15] MEDS: ASPIRIN EC PO SCH (08:44)
[2020-09-15] MEDS: DEPAKOTE EC PO SCH ×2 (08:45→21:00)
[2020-09-15] MEDS: NORVASC PO SCH (08:45)
[2020-09-15] MEDS: GLUCOPHAGE PO SCH ×2 (08:45→16:30)
--- NOTE | 2020-09-15 13:28 | PRM.PN ---
Mood: laying in bed, does not want to sit up Sleep: 3 hours Appetite: good, asking about snack/breakfast Suidical thoughts: waking rest of living life in retirement but denies si Homicidal thoughts: denies Recent stressors: something wrong with sleeping all day Family support: son Aggressive Behavior: not present last night or today Ability to Perform ADL'sc: dresses self, prompted by staff for routine Psychotic sympstoms: perceptions appearing improved Manic Symptoms: not present Living situation: between placements Illicit Drug usec: na Alcoholo use: na Tobacco use: na Family,PT,Surgical,&Current HX: (1) Bipolar 1 disorder, manic, moderate (2) Personality disorder in adult Anxity Symptoms: going to snf, Anger/Irritablility: denies Muscle Strength & Tone: WNL Gait & Station: Normal stance/post/gait Appearance: Disheveled (she is claen but clothes and hair usually a bit array) Attitude & Behaviour: Cooperative/Pleasant Mood & Affect: Blunted Orientation: Disoriented to situation Attention/Concentration: Fair attention, Fair concentration Speech: Reg rate/vol/rhyth/prosod Judgement/Insight: Fair judgement, Poor insight Thought Process: Circumferential Language: Ukrainian Thought content/Abnormal/Psych: Delusions (perceptions appearing more accurate to correct orientation) Fund of Knowledge: WNL Associations: Other Constitutional: None Neurological: None Psychiatric: Psychosis [place] I: delusional disorder, bipolar Assessment/Plan Assessment/Plan Plan Nursing: declined breakfast, wanted to go back to bed, attempt numerous distracting activities she declined goes to bed late, son had reported she generally slept long hour, into the day patient: at home routine- 11pm at night, did not get up earlier went to bed when went to bed, up earlier and bed earlier 9pm Laboratory Tests 09/12/20 16:39: Bedside Glucose 126H 09/12/20 20:02: Bedside Glucose 125H 09/13/20 07:37: Bedside Glucose 89 09/13/20 08:02: White Blood Count 4.5, Red Blood Count 3.99L, Hemoglobin 11.7L, Hematocrit 35.1L , Mean Corpuscular Volume 88.0, Mean Corpuscular Hemoglobin 29.3, Mean Corpuscular Hemoglobin Concent 33.3, Red Cell Distribution Width 14.4, Platelet Count 183, Mean Platelet Volume 10.3, Neutrophils (%) (Auto) 38.7L, Lymphocytes (%) (Auto) 50.0H, Monocytes (%) (Auto) 9.7, Neutrophils # (Auto) 1.8, Lymphocytes # (Auto) 2.26, Monocytes # (Auto) 0.4, Absolute Immature Granulocyte (auto 0.04, Absolute Eosinophils (auto) 0.0, Immature Granulocytes % 0.90H, Eosinophils % 0.0, Basophils % 0.7H, Basophils # 0.0, Valproic Acid (Depakene) Level 102H Vital Signs Date Time Temp Pulse Resp B/P (MAP) Pulse Ox O2 Delivery O2 Flow Rate FiO2 09/15/20 08:45 91 130/68 09/15/20 08:38 98.4 18 98 Room Air Allergies Coded Allergies Type Severity Reaction Last Updated Verified heparin Allergy Unknown 09/01/20 Yes Current Medications Medications (Trade) Dose Ordered Sig/Mary Jane PRN Reason Start Time Stop Time Status Last Admin Divalproex Sodium (Depakote Ec) 375 mg BID 09/13/20 21:00 10/13/20 20:59 09/15/20 08:45 Hydroxyzine HCl (Atarax) 25 mg 1500 09/13/20 17:00 10/13/20 16:59 09/14/20 14:51 Psychotropics: depakote dr 375mg po bid olanzapine 15mg daily hs hydroxizine scheduled every 1500 PRN, last given 09/07/20 zyprexa prn, summary: some admittance she is a bit depressed, wants to sleep in the day, appropriate grieving she has lost her independence and will be at snf/assisted living the rest of her life discuss changing it into how she will have great fun there, validate she has right to be sad/grieve. 1. CONTINUE BEHAVIORAL HEALTH MANAGEMENT. 2. CONTINUE CURRENT MEDICATIONS PRESCRIBED. 3. ALL PATIENT QUESTIONS ANSWERED RELATED TO MEDICATIONS, PLAN OF CARE, AND EXPECTED OUTCOMES. 4. SAFETY PLAN DISCUSSED. 5 OLANZAPINE CHANGE TIME TO 1500, ASSIST IN UNWINDING, PROMOTE HER SLEEPING EARLIER EVENING 6. remeron 7.5mg hs, some signs of depression, assist in promoting falling asleep at natural night time SALLY MANZANO NP Sep 15, 2020 13:28
[2020-09-15] MEDS: ZYPREXA ZYDIS SL SCH (15:00)
[2020-09-15] MEDS: ATARAX PO SCH (15:00)
--- NOTE | 2020-09-15 17:42 | NUR ---
PIRP: P: ALTERATION IN MOOD, ALTERATION IN THOUGHT PROCESS I: PROVIDE MEDICATIONS ORDERED BY PHYSICIAN. ENCOURAGE ATTENDANCE AND PARTICIPATION OF ALL GROUPS. ALLOW PATIENT TO VOICE FEELINGS AND CONCERNS. PROVIDE SAFE ENVIRONMENT. ASSISTED PATIENT FOR PREVENTION OF FALLS, SUPPLY PATIENT WITH NONSLIP SOCKS. MONITOR PATIENT FOR PSYCHOTIC SYMPTOMS AND REPORT TO PHYSICIANS. ASSESS PATIENT FOR DEPRESSION, ANXIETY AND SUICIDAL THOUGHTS. R: PATIENT HAS TAKEN ALL MEDICATION ORDERED. SHE HAS WANDERED THE HALLWAY AND HAS BEEN CONFUSED AND DISORIENTED. SHE HAS MADE COMMENTS LIKE " I WISH I COULD JUST AND THEN MY SON WOULD NOT HAVE TO WORRY ABOUT ME". SHE HAS EATEN WELL AND DRANK WELL TODAY. PATIENT REFUSED TO GET OUT OF BED THIS MORNING AND WAS ENCOURAGED TO MANY TIMES. SHE SLEPT UNTIL APPROX 1030 AND WAS UP FOR LUNCH. SHE REFUSES TO PARTICIPATE IN GROUPS AND DID NOT WANT TO SIT AND TALK. PATRICK MANZANO WIRE SPRING RELAY ADJUSTER SAW PATIENT TODAY AND MADE MEDICATION CHANGES NEW MEDICATION REMERON 7.5 MG PO HS AND BEDTIME ZYPREXA DOSE CHANGED TO 1500. PATIENT LACKS MOTIVATION, REFUSED SHOWER AND REFUSED TO CHANGE CLOTHING. COCCYX AND BUTTOCKS SLIGHTLY REDDENED CREAM APPLIED. PATIENT WANTS TO REMAIN IN HER ROOM. CURRENTLY SHE IS SITTING IN HER BED EATING A PEANUT BUTTER AND JELLY SANDWICH. P: CONTINUE CURRENT PLAN OF CARE.
[2020-09-15 20:40] VITALS: BP 126/63
[2020-09-15] MEDS: CRESTOR PO SCH (21:00)
[2020-09-15] MEDS: REMERON PO SCH (21:00)
[2020-09-15] MEDS: VITAMIN D PO SCH (21:00)
[2020-09-15] MEDS: LANTUS SQ SCH (21:00)
--- NOTE | 2020-09-15 21:00 | NUR ---
NEW MEDICATION NEW MEDICATION,REMERON 7.5 MG PO GIVEN AT 2100.
[2020-09-15] MEDS ORDERED: CRESTOR PO ONE (21:09)
--- NOTE | 2020-09-16 00:17 | NUR ---
MEDICATION PT. C/O GENERALIZED PAIN 11/24. TYLENOL 650 PO PRN GIVEN AT 2359.
--- NOTE | 2020-09-16 00:19 | NUR ---
MEDICATION PT. RECEIVED ZYPREXA ZYDIS 10 MG PO PRN AT 2359 FOR ANXIETY.
--- NOTE | 2020-09-16 00:47 | NUR ---
REASSESSMENT PT. RESTING IN BED WITH EYES CLOSED AT THIS TIME.
--- NOTE | 2020-09-16 02:05 | NUR ---
PATIENT COMPLAINING OF LOWER BACK/HIP PAIN ACHING , PAIN 7/10, GOES DOWN TO LEGS. TYLENOL DID NOT HELP MUCH NEEDED PER PATIENT. UNABLE TO REST , DR ECHEVARRIA HOSPITALIST NOTIFIED, ORDER RECEIVED FOR TRAMADOL 50 MG 1 EVERY 6 HOURS NEEDED FOR PAIN. REVIEWED PATIENT HAS BEEN IN NITROFURANTOIN 100 MG FOR UTI SINCE 09/01/20. ORDER RECEIVED TO DISCONTINUE NITROFURANTOIN.
[2020-09-16] MEDS: ULTRAM PO PRN (02:16)
--- NOTE | 2020-09-16 02:28 | NUR ---
MEDICATION TRAMADOL 50 MG PO PRN GIVEN AT 0216. PT. C/O LOWER BACK AND HIP PAIN RATING PAIN 03/26.
--- NOTE | 2020-09-16 05:15 | NUR ---
P.I.R.P. P. ALTERATION IN THOUGHT PROCESS/CONFUSION/DELUSIONS/ANXIETY I. PROVIDE EVERY 15 MINUTE CHECKS, PROVIDE SAFE ENVIRONMENT, PROVIDE MEDICATIONS ORDERED PER MD. PROVIDE TASK ORIENTED GROUP ACTIVITY AND ENCOURAGE PARTICIPATION, RE ORIENT AND RE DIRECT NEEDED. APPROACH IN A CALM MANNER, 1:1 INTERVENTION TO ALLOW PATIENT TO EXPRESS FEELINGS, GIVE SIMPLE INSTRUCTIONS AND EDUCATION REFERENCE MEDS AND SITUATION. MONITOR FOR CHANGES IN COGNITIVE STATUS. MONITOR FOR BEHAVIORS. R. PATIENT IS ALERT, HAS EATEN GOOD THIS SHIFT, REPEATS QUESTIONS AND CONVERSATIONS, TALKS OF THE PAST FREQUENTLY, CONFUSED OF TIME, DOES KNOW PLACE, CONTINUES FORGETFUL/CONFUSED, ATTENDED GROUP ACTIVITY TOOK MEDS ORDERED, RECEIVED NEEDED ZYPREXA FOR ANXIETY, PARTIAL EFFECTIVE HAS BEEN RESTLESS AT TIMES AFTER GOING TO BED, WANDERED IN AND OUT OF ROOM ASKING QUESTIONS, FORGETFUL. NEW MED MIRTAZAPINE 7.5 MG STARTED AT HS, ANXIETY 4 RECEIVED NEEDED TYLENOL FOR PAIN LATER NEW ORDER FOR NEEDED TRAMADOL RECEIVED AND SAME ADMINISTERED, TRAMADOL APPEARED MOST EFFECTIVE FOR HER RESTLESSNESS AND ANXIETY, HAS BEEN DELUSIONAL AND PARANOID, PATIENT HAS VOICED WHEN SHE LAYS DOWN SHE THINKS ABOUT THINGS OVER AND OVER IN HER MIND MAKING IT HARD TO REST. PATIENT HAS SLEPT 4 HOURS THIS SHIFT WHICH IS SLIGHT IMPROVEMENT FROM PREVIOUS NIGHT. NOTED 09/15/20 FROM 0600 TO 1800 SLEPT TOTAL OF 8 HOURS. P. CONTINUE CURRENT PLAN OF CARE. Addendum: 09/16/20 at 0621 by TANNER Laboy RN CORRECTION TIME STAMP SHOULD READ 0615.
[2020-09-16] MEDS: LEVOTHYROXINE SODIUM PO SCH (06:33)
[2020-09-16 07:55] VITALS: BP 119/61
--- NOTE | 2020-09-16 08:42 | NUR ---
SNF PLACEMENT. PT HAS BEEN DECLINED BY [facility], [facility], [facility], [place], [facility], [facility], AND [facility]. PAM FAXED CLINICAL TO [facility] FOR REVIEW. PT CURRENTLY PENDING ACCEPTANCE AT THIS TIME. SW TO CONTINUE TO FOLLOW.
[2020-09-16] MEDS: PEPCID PO SCH ×2 (09:10→20:08)
[2020-09-16] MEDS: GLUCOPHAGE PO SCH ×2 (09:10→16:40)
[2020-09-16] MEDS: NORVASC PO SCH (09:10)
[2020-09-16] MEDS: ASPIRIN EC PO SCH (09:10)
[2020-09-16] MEDS: DEPAKOTE EC PO SCH ×2 (09:10→20:08)
--- NOTE | 2020-09-16 10:27 | PRM.PN ---
Mood: Ok, I guess Sleep: 4 hrs at night, 8 hrs during day yesterday Appetite: good Suidical thoughts: denies Homicidal thoughts: denies Recent stressors: being inpatient Aggressive Behavior: none recently Ability to Perform ADL'sc: some assistance Psychotic sympstoms: denies Manic Symptoms: intrusive at times Living situation: SNF Anxity Symptoms: about where she'll go Anger/Irritablility: denies Appearance: Disheveled, Appears age stated Attitude & Behaviour: Cooperative/Pleasant, Good eye contact Mood & Affect: Depressed Orientation: Disoriented to place, Disoriented to time Attention/Concentration: Fair attention, Fair concentration Speech: Reg rate/vol/rhyth/prosod Judgement/Insight: Fair judgement, Fair insight Thought Process: Linear/goal directed Language: Guyanese Thought content/Abnormal/Psych: None/normal Fund of Knowledge: Other (some deficits) Associations: WNL/Normal Associations Memory (recent and remote): Recent memory repaired, Remote memory repaired Constitutional: None Neurological: None Psychiatric: Anxious [place] I: Delusional Disorder, Neurocognitive Disorder Assessment/Plan Assessment/Plan Assessment/Plan Nursing: Slept 4 hours at night, but 8 hours during the day Asks why she is here repeatedly Remembers that she's been kicked out of several SNF She had reported feeling of not wanting to live, unsure if it was for attention, though patient did seem to get angry when she didn't get the attention she wanted Said she was SI a couple days ago, could be for attention, got mad when she didn't get the attention Patient: Patient states that she is okay, "I'm still alive, and I'm still here." She is not overjoyed about being inpatient, and would like to go "home". She denies current manic symptoms, no SI/HI. No psychotic symptoms. Some anxiety about being inpatient and her MH. Patient hasn't had any aggression since around the time she was admitted, but she does feel like she is slightly more irritable than usual. Laboratory Tests 09/12/20 16:39: Bedside Glucose 126H 09/12/20 20:02: Bedside Glucose 125H 09/13/20 07:37: Bedside Glucose 89 09/13/20 08:02: White Blood Count 4.5, Red Blood Count 3.99L, Hemoglobin 11.7L, Hematocrit 35.1L , Mean Corpuscular Volume 88.0, Mean Corpuscular Hemoglobin 29.3, Mean Corpuscular Hemoglobin Concent 33.3, Red Cell Distribution Width 14.4, Platelet Count 183, Mean Platelet Volume 10.3, Neutrophils (%) (Auto) 38.7L, Lymphocytes (%) (Auto) 50.0H, Monocytes (%) (Auto) 9.7, Neutrophils # (Auto) 1.8, Lymphocytes # (Auto) 2.26, Monocytes # (Auto) 0.4, Absolute Immature Granulocyte (auto 0.04, Absolute Eosinophils (auto) 0.0, Immature Granulocytes % 0.90H, Eosinophils % 0.0, Basophils % 0.7H, Basophils # 0.0, Valproic Acid (Depakene) Level 102H Vital Signs Date Time Temp Pulse Resp B/P (MAP) Pulse Ox O2 Delivery O2 Flow Rate FiO2 09/15/20 08:45 91 130/68 09/15/20 08:38 98.4 18 98 Room Air Allergies Coded Allergies Type Severity Reaction Last Updated Verified heparin Allergy Unknown 09/01/20 Yes Current Medications Medications (Trade) Dose Ordered Sig/Mary Jane PRN Reason Start Time Stop Time Status Last Admin Divalproex Sodium (Depakote Ec) 375 mg BID 09/13/20 21:00 10/13/20 20:59 09/15/20 08:45 Hydroxyzine HCl (Atarax) 25 mg 1500 09/13/20 17:00 10/13/20 16:59 09/14/20 14:51 Psychotropics: depakote dr 375mg po bid olanzapine 15mg daily hs hydroxizine scheduled every 1500 PRN, last given 09/07/20 zyprexa prn, Assessment: 70 yo F, unknown psych history, admitted to [facility] for worsening mood/aggression. Patient's mood has seemed better than when first admitted, no aggression since around the time she was admitted. Working on placement. Reviewed R/B/SEs of medications. PVU, agrees with plan. Plan 1. CONTINUE BEHAVIORAL HEALTH MANAGEMENT. 2. CONTINUE CURRENT MEDICATIONS PRESCRIBED. 3. ALL PATIENT QUESTIONS ANSWERED RELATED TO MEDICATIONS, PLAN OF CARE, AND EXPECTED OUTCOMES. 4. SAFETY PLAN DISCUSSED. ALBA CROFT MD Sep 16, 2020 10:27
--- NOTE | 2020-09-16 10:30 | NUR ---
TELEMED PT WAS SEEN BY DR. CROFT VIA TELEMEDICINE. NO NEW ORDERS RECEIVED AT THIS TIME.
[2020-09-16] MEDS: ATARAX PO SCH (14:58)
[2020-09-16] MEDS: ZYPREXA ZYDIS SL SCH (14:58)
--- NOTE | 2020-09-16 17:26 | NUR ---
PIRP P-ALTERED THOUGHT PROCESS, DTO, ELOPEMENT RISK, RISK FOR FALLS I-Q 15 MINUTE CHECKS. PROVIDE SAFE ENVIRONMENT. MEDICATIONS DIRECTED BY THE PHYSICIAN. PROVIDE TASK ORIENTED ACTIVITIES, ENCOURAGE GROUP PARTICIPATION. RE ORIENT AND RE DIRECT WITH VERBALIZATION NEEDED. PROVIDE SIMPLE INSTRUCTIONS. 1:1 INTERVENTION TO ALLOW PT TO EXPRESS FEELINGS/THOUGHTS. ASSESS FOR DEPRESSION/ANXIETY, AND PSYCHOTIC SYMPTOMS. SI/HI. R-PT IS CHECKED EVERY 15 MINUTES FOR SAFETY. PT HAS TAKEN ALL MEDICATIONS DIRECTED BY THE PHYSICIAN. PT HAS BEEN ENCOURAGED TO PARTICIPATE IN GROUPS-PT HAS STAYED IN BED SLEEPING THIS SHIFT. PT IS RE ORIENTED AND RE DIRECTED EACH TIME SHE COMES TO STAFF ASKING FOR INFORMATION TO WHERE AT, WHY, HOW LONG BEEN AT THIS SNF. PT HAS MADE HOPELESS STATEMENTS AT VARIOUS TIME THIS SHIFT AND TO VARIOUS STAFF MEMBERS. PT GIVEN TIME TO TALK TO STAFF-STAFF HAS TALKED TO PT TO DETERMINE WHY SAY HOPELESS STATEMENTS. PT DENIES SI/HI. NO HALLUCINATIONS OR DELUSIONS NOTED. P-CONT TO RE ORIENT AND RE DIRECT NEEDED. PROVIDE SAFE ENVIRONMENT
[2020-09-16] MEDS ORDERED: CRESTOR PO ONE (20:08)
[2020-09-16] MEDS: CRESTOR PO SCH (20:08)
[2020-09-16] MEDS: REMERON PO SCH (20:09)
[2020-09-16] MEDS: VITAMIN D PO SCH (20:09)
[2020-09-16] MEDS: LANTUS SQ SCH (20:14)
[2020-09-16] MEDS: TYLENOL PO PRN (22:10)
--- NOTE | 2020-09-17 02:22 | NUR ---
PIRP- P-ALTERATION IN THOUGHT PROCESS AND FALL RISK I- PROVIDE SAFE AND SUPPORTIVE ENVIRONMENT,PROVIDE MEDICATION ORDERED AND Q 15 MIN. MONITORING. GIVE CLEAR AND SIMPLE INSTRUCTIONS. R- PT. ORIENTED TO NAME NOT MONTH OR YEAR. SHE RATED DEPRESSION AND ANXIETY 6 ON 0/10 SCALE. WANDERED IN HALLWAY,ATTENDED GROUP,ATE SNACKS AND PARTICIPATED IN GROUP ACTIVITY WITH PROMPTING. TOOK MEDICATION ORDERED. PT. STATED HER SON DOES NOT CARE ABOUT HER BECAUSE HE DOESN'T CALL OR COME SEE HER. SHE STATED HE DID NOT CARE IF SHE IS OR ALIVE. IT STATED IT UPSETS HER BECAUSE HE LIVES SO CLOSE AND DOESN'T EVEN CARE ABOUT HER. PT. STATED SHE STAYED IN BED ALL DAY AND SLEPT MOST OF THE DAY AND STATED SHE WAS NOT SLEEPY TONIGHT. PT. HAS RESTED WITH EYES CLOSED FOR 1 HOUR THIS SHIFT OF THIS TIME. PT. HAS BEEN IN AND OUT OF HER ROOM. RESTLESS AND WANDERING IN HER ROOM AT TIMES. P- WILL PROVIDE 1:1 INTERVENTION ALLOWING PT. TO EXPRESS THOUGHTS AND FEELINGS. GIVE CLEAR AND SIMPLE INSTRUCTIONS. REDIRECT AND REORIENT NEEDED.
[2020-09-17] MEDS: LEVOTHYROXINE SODIUM PO SCH (06:26)
--- NOTE | 2020-09-17 09:52 | DIET.OP ---
Nutrition Asmt/Malnutrit 2-17 Actual Date of Review: Sep 17, 2020 Diagnosis: delusional disorder Pertinent Medical Hx/Surgical: DM-2, HTN, dementia, bipolar disorder, MDD, hypothyroidism. Subjective Information: telehealth f/u - pt admitted from senior care for worsening mood/agression. Updated wt would be greatly appreciated Current Diet Order/Nutrition S: 1999 ar ADA Patient /S.O: Not Indicated Pertinent Meds Current Medications Medications (Trade) Dose Ordered Sig/Mary Jane PRN Reason Start Time Stop Time Status Last Admin Mirtazapine (Remeron) 7.5 mg HS 09/15/20 21:00 10/15/20 20:59 09/16/20 20:09 Olanzapine (Zyprexa Zydis) 15 mg 1500 09/15/20 15:00 10/07/20 20:59 09/16/20 14:58 Tramadol HCl (Ultram) 50 mg Q6 PRN PAIN 09/16/20 02:05 10/17/20 00:00 09/16/20 02:16 Pertinent Labs Laboratory Tests Test 09/15/20 17:36 09/15/20 20:39 09/16/20 07:34 09/16/20 16:35 Bedside Glucose 154 172 121 135 Test 09/16/20 19:58 Bedside Glucose 151 Height (Feet): 5 Height (Inches): 9 Current Weight: 180 (estimated by staff) Recent Weight Change: No (unable to assess - no updated wt on chair scale) Weight Status: Overweight (per staff's estimated wt ) Food Allergies: No Cultural/Ethnic/Anabaptism Yaritza: none known Current %PO: 85% BEE in Kcals: Use Current Weight Calories/Kcals/Kg: MSJ 1.2-1.4 Kcals Calculated: 7949-4279 kcal Protein: Use Current Weight Protein g/k.8-1g/kg Protein Calculated: 65-82g Fluid: ml: 7932-2086 ml or 1 ml/kcal Nutritional Problem: Nutr. Problems Present Problems: Altered nutrition related lab values Etiology: DM Signs/Symptoms: BG 117 - 172 mg/dl the last [address] Comments: 1. Continue 1999 ar ADA diet, encouraging po intake. Small frequent meals and snacks. 2. Recommend offering Glucerna oral supplement if po intake is below 40% of meal. 3. Continue to monitor BG and correct as indicated. 4. Recommend a weight on the chair scale for better assessment of wt status. 5. RD to monitor po intake and weight. Diet education not appropriate at this time. Expected Outcomes 65-100% po intake of meals and snacks to meet estimated needs the next 3 days. met, continue discharge on consistent carb diet. Malnutrtion/Nutrition Risk Edu: No Notificiation Needed?: No Katy Dodson Sep 17, 2020 09:52
[2020-09-17] MEDS: DEPAKOTE EC PO SCH ×2 (10:15→20:12)
[2020-09-17] MEDS: NORVASC PO SCH (10:15)
[2020-09-17] MEDS: GLUCOPHAGE PO SCH ×2 (10:15→17:15)
[2020-09-17] MEDS: PEPCID PO SCH ×2 (10:15→20:12)
[2020-09-17] MEDS: ASPIRIN EC PO SCH (10:15)
[2020-09-17 10:41] VITALS: BP 126/71
--- NOTE | 2020-09-17 15:21 | NUR ---
PIRP: P: ALTERATION IN MOOD, ALTERATION IN THOUGHT PROCESS I: PROVIDE MEDICATIONS ORDERED BY PHYSICIAN. ENCOURAGE ATTENDANCE AND PARTICIPATION OF ALL GROUPS. ALLOW PATIENT TO VOICE FEELINGS AND CONCERNS. PROVIDE SAFE ENVIRONMENT. ASSISTED PATIENT FOR PREVENTION OF FALLS, SUPPLY PATIENT WITH NONSLIP SOCKS. MONITOR PATIENT FOR PSYCHOTIC SYMPTOMS AND REPORT TO PHYSICIANS. ASSESS PATIENT FOR DEPRESSION, ANXIETY AND SUICIDAL THOUGHTS. R: PATIENT HAS TAKEN ALL MEDICATIONS ORDERED AND HAS BEEN COOPERATIVE. SHE REFUSED TO PARTICIPATE IN GROUPS ANDRETREATS TO HER ROOM AND LAYS DOWN. SHE WAS ASSISTED THIS MORNING WITH [facility] BUT REFUSED SHOWER. PATIENT WAS INCONTINENT WITH STOOL THIS MORNING AND REQUIRED ASSISTANCE FROM NURSE, UNDERWEAR AND PANTS WERE CHANGED. SHE REMAINS CONFUSED AND DISORIENTED, BUT HAS BEEN EASILY REDIRECTED. SHE HAS EATEN BREAKFAST AND LUNCH WELL AND IS DRINKING WELL. P: CONTINUE CURRENT PLAN OF CARE.
[2020-09-17] MEDS: ZYPREXA ZYDIS SL SCH (15:35)
[2020-09-17] MEDS: ATARAX PO SCH (15:35)
[2020-09-17 19:30] VITALS: BP 133/75
[2020-09-17] MEDS ORDERED: CRESTOR PO ONE (19:56)
[2020-09-17] MEDS: ULTRAM PO PRN (19:57)
[2020-09-17] MEDS: CRESTOR PO SCH (20:12)
[2020-09-17] MEDS: VITAMIN D PO SCH (20:12)
[2020-09-17] MEDS: REMERON PO SCH (20:13)
[2020-09-17] MEDS: LANTUS SQ SCH (20:38)
--- NOTE | 2020-09-17 23:12 | NUR ---
RESTLESSNESS/ANXIETY/DIFFICULTY SLEEPING DR CROFT NOTIFIED/NEW ORDER CONTACTED DR CROFT REFERENCE PATIENT HAS BEEN RESTLESS , ANXIOUS, INABILITY TO SLEEP TONIGHT, AND LAST FEW NIGHTS ALSO. REVIEWED MEDS AND RECENT DECREASE IN ABILITY TO SLEEP AT NIGHT , CASER IN, HAVING INCREASE IN SLEEP DURING DAY, APPEARING HAS DAYS AND NIGHTS MIXED UP AND CONCERN PATIENT WILL BE PLACED IN FACILITY ON DISCHARGE AND THE NEED TO BE ON BETTER CONTROLLED SLEEP PATTERN. ORDER RECEIVED FOR ADDITIONAL 7.5 MG MIRTAZAPINE. ONE TIME. IF THIS INCREASE IS EFFECTIVE ORDER RECEIVED TO INCREASE MIRTAZAPINE TO 30 MG STARTING 09/18/20 AT HS. Addendum: 09/17/20 at 2335 by TANNER Laboy RN CORRECTION MIRTAZAPINE WILL INCREASE TO 15 MG AT HS STARTING 09/18/20 IF EFFECTIVE WITH ONE TIME DOSE GIVEN TONIGHT.
[2020-09-17] MEDS ORDERED: REMERON ONE (23:14)
[2020-09-17] MEDS ORDERED: REMERON PO ONE (23:30)
[2020-09-17] MEDS: TYLENOL PO PRN (23:44)
[2020-09-18] MEDS: ULTRAM PO PRN (02:47)
--- NOTE | 2020-09-18 05:20 | NUR ---
P.I.R.P. P. ALTERATION IN THOUGHT PROCESS/CONFUSION/ANXIETY I. PROVIDE EVERY 15 MINUTE CHECKS, PROVIDE SAFE ENVIRONMENT, PROVIDE MEDICATIONS ORDERED PER MD. PROVIDE TASK ORIENTED GROUP ACTIVITY AND ENCOURAGE PARTICIPATION, RE ORIENT AND RE DIRECT NEEDED. APPROACH IN A CALM MANNER, 1:1 INTERVENTION TO ALLOW PATIENT TO EXPRESS FEELINGS, CONTINUE TO GIVE SIMPLE INSTRUCTIONS AND EDUCATION REFERENCE MEDS AND SITUATION. MONITOR FOR CHANGES IN COGNITIVE STATUS. MONITOR FOR BEHAVIORS. CONTINUE TO EDUCATE REFERENCE SAFETY. PATIENT LIKES TO OCCASIONALLY SIT IN FLOOR, WANTS TO LAY IN FLOOR. R. PATIENT IS ALERT, HAS EATEN GOOD THIS SHIFT TO INCLUDE 1.5 SANDWICHES. REPEATS QUESTIONS FREQUENTLY, EXAMPLE PATIENT ASKED "CAN I LAY IN THE FLOOR IT IS COLD AND WILL MAKE BACK AND LEGS FEEL BETTER, CAN STRETCH BETTER" EDUCATED PATIENT THIS WAS A HOSPITAL AND DISCOURAGED LAYING IN FLOOR. PATIENT WOULD RE ASK SAME QUESTION IN ABOUT 3 MINUTES, WHEN ASKED IF SHE REMEMBERED ANSWER PREVIOUSLY WOULD ANSWER PORTION OF ANSWER LIKE "NO ,THERE ARE GERMS IN THE FLOOR." APPEARS ATTENTION SEEKING AT TIMES, DOES REQUEST TO GET OUT OF HERE, HAS BEEN ANXIOUS, WANDERING, WALKING IN AND OUT OF ROOM TO NURSES STATION ASKING FOR THINGS LIKE A DRINK OF WATER, SOMETHING TO EAT, ANOTHER BLANKET VOICING " I CANT SLEEP WORRYING ABOUT THINGS, THINKING ABOUT THINGS. JUST CANT GO TO SLEEP. CONFUSED OF TIME, OCCASIONALLY KNOWS PLACE, CONTINUES FORGETFUL/CONFUSED, ATTENDED GROUP ACTIVITY , WOULD WANDER AT TIMES, VOICING HOW SLEEPY SHE WAS BUT THEN WAS UNABLE TO GO TO SLEEP. TOOK MEDS ORDERED, RECEIVED NEEDED TRAMADOL X 2 FOR PAIN NOT EFFECTIVE, PRN TYLENOL AND ONE TIME ORDER OF ADDITIONAL MIRTAZAPINE 7.5 MG FOR SLEEP WHICH HAS NOT BEEN EFFECTIVE. RATED ANXIETY A 4 AND DEPRESSION A 4. PATIENT HAS SLEPT 1.5 HOURS THUS FAR THIS SHIFT. NOTED 09/15/20 FROM 0600 TO 1800 SLEPT TOTAL OF 5.75 HOURS DURING DAY SHIFT. P. CONTINUE CURRENT PLAN OF CARE.
[2020-09-18] MEDS: LEVOTHYROXINE SODIUM PO SCH (05:59)
--- NOTE | 2020-09-18 06:28 | NUR ---
SLEEP OVER LAST 10 DAYS PATIENT HAS DECREASED SLEEP HOURS AT NIGHT FROM 8.75 TO 3.0. DECLINE STARTED 09/13/20.
[2020-09-18 08:23] VITALS: BP 148/84
[2020-09-18] MEDS: GLUCOPHAGE PO SCH ×2 (08:26→16:36)
[2020-09-18] MEDS: PEPCID PO SCH ×2 (08:27→20:10)
[2020-09-18] MEDS: NORVASC PO SCH (08:27)
[2020-09-18] MEDS: ASPIRIN EC PO SCH (08:27)
[2020-09-18] MEDS: DEPAKOTE EC PO SCH ×3 (08:27→20:10)
--- NOTE | 2020-09-18 10:58 | PRM.PN ---
Mood: suzanne joseph is over Sleep: 1.5 hours "I slept good" Appetite: as far as I know decent, taste good, edible Suidical thoughts: denies Homicidal thoughts: denies Recent stressors: denies Family support: not recently talking to family, Aggressive Behavior: not present Ability to Perform ADL'sc: brings self to [place] Psychotic sympstoms: not recalling recent accurate Manic Symptoms: I hate chaos I like order, Living situation: between placements Illicit Drug usec: na Alcoholo use: na Tobacco use: na Family,PT,Surgical,&Current HX: (1) Bipolar 1 disorder, manic, moderate (2) Personality disorder in adult (3) Delusional disorder Anxity Symptoms: related to holidays Anger/Irritablility: denies Muscle Strength & Tone: WNL Gait & Station: Normal stance/post/gait Appearance: Well groomed/hygience (but her hair is a bit slept on, wraps in her fleece blanket) Attitude & Behaviour: Cooperative/Pleasant Mood & Affect: Full Orientation: Disoriented to time, Disoriented to situation Attention/Concentration: Fair attention, Fair concentration Speech: Reg rate/vol/rhyth/prosod Judgement/Insight: Fair judgement, Poor insight Thought Process: Circumferential Language: Cypriot Thought content/Abnormal/Psych: Delusions (perceptions not appearing accurate, shot term memory not so well ) Fund of Knowledge: WNL Associations: Other Constitutional: None Neurological: None Psychiatric: Depressed (she denies depression, not crying not hopeless- prefers alone time), Psychosis (perceptions not accurate) [employer] [place] [employer] [place] I: delusional disorder, bipolar [employer] [place] IV: between placements Assessment/Plan Assessment/Plan Plan Nursing: sleeping poorly since , remeron increased to 15mg not effective tramadol and tylenol - reported hip pain no recent falls aggression: no present she continues to sleep/nap in the day participating in activities, minimal, eats for 5 minutes and returns to her room helped making cupcakes yesterday she has been pleasant and cooperative this morning, Patient year - we just went into the new year 2019- yes to 2020, town- recognizes out ouf 3 other cities, not sure if they will let me play dominoes, then says do I have to? I don't need anyone else to make me happy, I am ok with being alone, denies it as depression- Vital Signs Date Time Temp Pulse Resp B/P (MAP) Pulse Ox O2 Delivery O2 Flow Rate FiO2 09/18/20 08:27 97 148/84 09/18/20 08:23 97.5 20 97 Allergies Coded Allergies Type Severity Reaction Last Updated Verified heparin Allergy Unknown 09/01/20 Yes Current Medications Medications (Trade) Dose Ordered Sig/Mary Jane PRN Reason Start Time Stop Time Status Last Admin Mirtazapine (Remeron) 7.5 mg HS 09/15/20 21:00 10/15/20 20:59 09/17/20 20:13 Olanzapine (Zyprexa Zydis) 15 mg 1500 09/15/20 15:00 10/07/20 20:59 09/17/20 15:35 Tramadol HCl (Ultram) 50 mg Q6 PRN PAIN 09/16/20 02:05 10/17/20 00:00 09/18/20 02:47 psychotropics: olanzapine 15mg at 1500 remeron 7.5 mg hs depakote 375mg bid hydroxizine 25mg prn anxiety 1. CONTINUE BEHAVIORAL HEALTH MANAGEMENT. 2. CONTINUE CURRENT MEDICATIONS PRESCRIBED. 3. ALL PATIENT QUESTIONS ANSWERED RELATED TO MEDICATIONS, PLAN OF CARE, AND EXPECTED OUTCOMES. 4. SAFETY PLAN DISCUSSED. 5. Discontinue Remeron it appears to have made sleep worse at night 6. melatonin 3mg daily at hs 7. PRN Trazodone 50mg at hs if needed SALLY MANZANO NP Sep 18, 2020 10:58
--- NOTE | 2020-09-18 11:16 | NUR ---
TELEMED PT WAS SEEN BY Delma MANZANO NP. RECEIVED ORDERS TO START MELATONIN AND PRN TRAZADONE. DISCONTINUED REMERON. SEE EMR. PT WAS AGREEABLE WITH PLAN.
[2020-09-18] MEDS: ZYPREXA ZYDIS SL SCH (14:21)
[2020-09-18] MEDS: ATARAX PO SCH (14:21)
--- NOTE | 2020-09-18 17:18 | NUR ---
PIRP NOTE P: ALTERATION IN THOUGHT PROCESS, CONFUSION, ANXIETY I: ADMINISTERED MEDICATIONS PER ORDERED. ENCOURAGED Pt TO PARTICIPATE IN GROUP ACTIVITIES. ENCOURAGED PT TO VERBALIZE HER NEEDS. MONITORED PT FOR ANY CHANGES FOR DELUSION, PARANOID BEHAVIOR, ANXIETY, DEPRESSION, AND SUICIDAL IDEATION. COMPLETED 15 MINS CHECKS OR NEEDED. PROVIDED FALL PRECAUTIONS WITH NON SLIPPERY SHOCKS WHILE WALKING IN ROOM OR IN HALLWAY. REORIENTED Pt TO HER ROOM AND NEEDED. REINSURED Pt THAT THIS PLACE IS NOT FOR HER PERMANENT STAY. R: Pt TOOK ALL HER MEDICATIONS PER ORDERED. Pt KEPT FORGETTING HER ROOM AND HER GLASSES AND ASK STAFF "WHERE IS MY GLASSES", "WHEN I AM GOING HOME",REORIENTED PT TO ROOM AND HER GLASSES AND TOLD HER [facility] DEBBIE WORKING FOR HER PLACEMENT.Pt ATE WELL, DENIES ANY HALLUCINATIONS, DELUSIONS , SUICIDAL IDEATION AT THIS TIME. P: Pt WILL BE STARTING ON MELATONIN 3 MG AT HS FROM TODAY, AND PRN TRAZODONE, D/C REMERON.
[2020-09-18] MEDS: TYLENOL PO PRN (17:55)
[2020-09-18 19:28] VITALS: BP 124/74
[2020-09-18] MEDS: VITAMIN D PO SCH (20:09)
[2020-09-18] MEDS: MELATONIN PO SCH (20:09)
[2020-09-18] MEDS ORDERED: CRESTOR PO ONE (20:09)
[2020-09-18] MEDS: CRESTOR PO SCH (20:10)
[2020-09-18] MEDS: LANTUS SQ SCH (20:33)
[2020-09-18] MEDS: DESYREL PO PRN (22:01)
--- NOTE | 2020-09-19 03:19 | NUR ---
PIRP- P- ALTERED THOUGHT PROCESS AND FALL RISK I- PROVIDE SAFE AND SUPPORTIVE ENVIRONMENT,PROVIDE MEDICATION AND Q 15 MIN. MONITORING. REDIRECT NEEDED. R- PT. RATED DEPRESSION 6 AND ANXIETY 3. ATTENDED GROUP AND PARTICIPATED IN GROUP ACTIVITIES,RESTLESS AT TIMES,ATE SNACKS,INITIATED INTERACTION. FORGETFUL.REMAINS FALL RISK AND WEARING RED NON SKID SOCKS THIS SHIFT. PT. HAS HAD NO FALLS TONIGHT OF THIS TIME. TOOK MEDICATION ORDERED BY PHYSICIAN. RECEIVED TRAZODONE AT 2201 TONIGHT. PT. AWAKE AT THIS TIME. P- WILL CONTINUE TO PROVIDE 1:1 INTERVENTION ALLOWING PT. TO EXPRESS THOUGHTS AND FEELINGS. GIVE SIMPLE AND CLEAR INSTRUCTIONS. PROVIDE MEDICATION ORDERED. REDIRECT NEEDED.
[2020-09-19] MEDS: LEVOTHYROXINE SODIUM PO SCH (06:04)
[2020-09-19 07:24] VITALS: BP 121/62
[2020-09-19] MEDS: PEPCID PO SCH ×2 (08:33→20:25)
[2020-09-19] MEDS: NORVASC PO SCH (08:33)
[2020-09-19] MEDS: ASPIRIN EC PO SCH (08:33)
[2020-09-19] MEDS: DEPAKOTE EC PO SCH ×2 (08:33→20:25)
[2020-09-19] MEDS: GLUCOPHAGE PO SCH ×2 (08:34→17:20)
--- NOTE | 2020-09-19 10:04 | NUR ---
TELEMED PT WAS SEEN BY Delma MANZANO NP. NO NEW ORDERS RECEIVED AT THIS TIME.
--- NOTE | 2020-09-19 10:09 | PRM.PN ---
Mood: [place] was hard, holidays always are Sleep: 7.75 hours not talkative when waking, Appetite: little bitter, cheetos and soda just now, Suidical thoughts: denies Homicidal thoughts: denies Recent stressors: beginning to learn no home, no marriage Family support: last living member of my family Aggressive Behavior: denies Ability to Perform ADL'sc: on her own Psychotic sympstoms: denies Manic Symptoms: denies Living situation: knows placement in future Illicit Drug usec: na Alcoholo use: na Tobacco use: na Family,PT,Surgical,&Current HX: (1) Bipolar 1 disorder, manic, moderate (2) Personality disorder in adult (3) Delusional disorder Anxity Symptoms: about discharge Anger/Irritablility: denies Muscle Strength & Tone: WNL Gait & Station: Normal stance/post/gait Appearance: Well groomed/hygience Attitude & Behaviour: Cooperative/Pleasant Mood & Affect: Full Orientation: Disoriented to place, Disoriented to time, Disoriented to situation Attention/Concentration: Fair attention, Fair concentration Speech: Reg rate/vol/rhyth/prosod Judgement/Insight: Fair judgement, Poor insight (she is having moments of insight) Thought Process: Circumferential Language: Setswana Thought content/Abnormal/Psych: Delusions (less) Fund of Knowledge: WNL Associations: WNL/Normal Associations Memory (recent and remote): Recent memory repaired (today great improvement but steadily accurate), Remote memory repaired (remote memory more consistently accurate) Constitutional: None Neurological: None Psychiatric: Depressed, Psychosis (less depressive this day, does not stay oriented. perceptions not consistent) [place] I: delusional disorder bipolar [place] II: PD Assessment/Plan Assessment/Plan Plan Nursing: finally slept last night melatonin did not initiate sleep - trazodone prn given 2 hours later which assisted in sleep initiation 1 episode of bowel incontinence, she was cooperative with shower after appetite appearing to be improving she ate some breakfast this morning versus skipping waiting in the day area, not recognizing routines yet as asks; who is this doctor at time answers [place], at times answers [place], she will ask staff about discharge, where she will go, she will say "cause I've been bad" as delay in placement Patient I was raised in [employer], I love a zoroastrian that has good baptist people are spontaneous, I haven't been a very good patient was that a big sign, I am through a tantrum, Vital Signs Date Time Temp Pulse Resp B/P (MAP) Pulse Ox O2 Delivery O2 Flow Rate FiO2 09/19/20 08:33 80 121/62 09/19/20 07:24 97.5 16 96 Allergies Coded Allergies Type Severity Reaction Last Updated Verified heparin Allergy Unknown 09/01/20 Yes Current Medications Medications (Trade) Dose Ordered Sig/Mary Jane PRN Reason Start Time Stop Time Status Last Admin Melatonin (Melatonin) 3 mg HS 09/18/20 21:00 10/18/20 20:59 09/18/20 20:09 Trazodone HCl (Desyrel) 50 mg HS PRN insomnia 09/18/20 21:00 10/18/20 20:59 09/18/20 22:01 psychotropics: olanzapine 15mg at 1500 melatonin 3mg hs trazodone 50mg prn, given 09/18/2019 depakote 375mg bid hydroxizine 25mg prn anxiety remeron 7.5 mg hs- stopped did not work summary: she is showing some insight today; aware of she had behaviors at previous placements, appears to be moving to state of acceptance of living at snf, today she was even able to tow picker on social cue, able to laugh at humor, depressive state appears to be remitting, short term memory, limited but today aware of what she was just eating, aware she had bout of diarrhea, 1. CONTINUE BEHAVIORAL HEALTH MANAGEMENT. Discharge to lower level of care when approved by snf/assisted living- she does require staff to remind her of routines, 2. CONTINUE CURRENT MEDICATIONS PRESCRIBED. 3. ALL PATIENT QUESTIONS ANSWERED RELATED TO MEDICATIONS, PLAN OF CARE, AND EXPECTED OUTCOMES. 4. SAFETY PLAN DISCUSSED. SALLY MANZANO NP Sep 19, 2020 10:09
[2020-09-19] MEDS: ATARAX PO SCH (15:11)
[2020-09-19] MEDS: ZYPREXA ZYDIS SL SCH (15:11)
--- NOTE | 2020-09-19 17:27 | NUR ---
PIRP P: ALTERATION IN MOOD, ALTERED THOUGHT PROCESS, CONFUSION I: Q15 MIN MONITORING, ASSESS FOR DEPRESSION/ANXIETY, ASSESS FOR PSYCHOTIC SYMPTOMS, ALTERNATE REST/ACTIVITY, PROVIDE 1:1 TO ENCOURAGE EXPRESSION OF FEELINGS, REDIRECT WITH VERBALIZATION, GIVE CLEAR AND SIMPLE INSTRUCTIONS, RE-ORIENT TO SURROUNDINGS NEEDED, PROVIDE SAFE AND SUPPORTIVE ENVIRONMENT R: PT HAS ISOLATED TO ROOM THROUGHOUT SHIFT, HAS COME OUT TO DAY ROOM WITH PROMPTING AND ENCOURAGEMENT. INITIATES INTERACTION WITH STAFF AND PEERS, IS MOSTLY PLEASANT WITH APPROACH. HAS NOT EXHIBITED THREATENING OR COMBATIVE BEHAVIORS, NO HALLUCINATIONS OR DELUSIONS NOTED. PT REMAINS ALERT AND ORIENTED TO SELF, FREQUENTLY ASKS SAME QUESTIONS REGARDING SURROUNDINGS AND GOING HOME. REPORTS FEELINGS OF DEPRESSION AND ANXIETY R/T THE HOLIDAYS, NOT HAVING A , AND BEING THE ONLY LIVING FAMILY MEMBER LEFT OUT OF HER SIBLINGS. PT APPEARS TO HAVE MINIMAL INSIGHT R/T HOSPITALIZATION AND DIFFICULTY WITH PLACEMENT. STATES, "I'VE CAUSED A LOT OF TROUBLE. I GUESS I HAVEN'T BEEN A VERY GOOD PATIENT. I'D LIKE TO THINK THAT I'M DONE WITH THAT THOUGH." PT HAS NOT PARTICIPATED IN GROUP ACTIVITIES, BUT HAS REMAINED IN DAY ROOM TO SOCIALIZE WITH STAFF AND PEERS DURING ACTIVITIES, HAS TAKEN MEDICATIONS ORDERED, AND IS COOPERATIVE WITH ADLS. P: RE-ORIENT TO SURROUNDINGS NEEDED, ALTERNATE REST/ACTIVITY, USE CALM REASSURING APPROACH
[2020-09-19 19:35] VITALS: BP 132/20
[2020-09-19] MEDS ORDERED: CRESTOR PO ONE (20:20)
[2020-09-19] MEDS: CRESTOR PO SCH (20:25)
[2020-09-19] MEDS: VITAMIN D PO SCH (20:25)
[2020-09-19] MEDS: MELATONIN PO SCH (20:25)
[2020-09-19] MEDS: LANTUS SQ SCH (20:48)
[2020-09-19] MEDS: TYLENOL PO PRN (22:05)
--- NOTE | 2020-09-20 02:36 | NUR ---
PIRP- P- ALTERED THOUGHT PROCESS AND FALL RISK I- PROVIDE MEDICATION ORDERED,PROVIDE SAFE AND SUPPORTIVE ENVIRONMENT AND Q 15 MIN. MONITORING. GIVE CLEAR AND SIMPLE DIRECTIONS. R- PT. ORIENTED TIMES THREE. RATED DEPRESSION 7 AND ANXIETY 6. ATTENDED GROUP,ATE SNACKS AND PARTICIPATED IN HALF OF THE GROUP ACTIVITIES. RESTLESS AT TIMES AND OCCASIONALLY WOULD MOVE TO ANOTHER CHAIR IN DAY ROOM. TOOK MEDICATION ORDERED BY PHYSICIAN. REMAINS FALL RISK AND IS WEARING RED NON SKID SOCKS THIS SHIFT. PT. EXITS FREQUENT FORGETFULNESS AND ASKED SAME QUESTION REPEATEDLY. PT. REQUESTED TYLENOL FOR LEG CRAMPS AND RECEIVED TYLENOL 650 MG PO PRN AT 2205. PT. LYING IN BED WITH EYES CLOSED AT THIS TIME. P- WILL CONTINUE TO PROVIDE 1:1 INTERVENTION ALLOWING PT. TO EXPRESS THOUGHTS AND FEELINGS. PROVIDE MEDICATION ORDERED. CONTINUE TO PROVIDE CLEAR AND SIMPLE INSTRUCTIONS. REDIRECT NEEDED.
[2020-09-20] MEDS: LEVOTHYROXINE SODIUM PO SCH (05:42)
[2020-09-20 08:11] VITALS: BP 129/64
[2020-09-20] MEDS: DEPAKOTE EC PO SCH ×2 (08:12→20:36)
[2020-09-20] MEDS: NORVASC PO SCH (08:12)
[2020-09-20] MEDS: ASPIRIN EC PO SCH (08:12)
[2020-09-20] MEDS: GLUCOPHAGE PO SCH ×2 (08:12→16:37)
[2020-09-20] MEDS: PEPCID PO SCH ×2 (08:12→20:25)
--- NOTE | 2020-09-20 08:45 | NUR ---
[facility]: SW REACHED OUT AND VISITED WITH ADMISSION COORDINATOR DEBBIE SAWANT SHE STATED THEY ARE STILL RUNNING FINANCIALS BUT WOULD GET BACK WITH ME LATER TODAY. PAM LET DEBBIE KNOW WE WOULD BE ABLE TO DO SKYPE OR THEY COULD COME IN PERSON SO THEY COULD COMPLETE A FACE TO FACE ASSESSMENT. PT STILL PENDING ACCEPTANCE AT THIS TIME.
--- NOTE | 2020-09-20 14:36 | PRM.PN ---
Mood: reports good Sleep: 6 hours Appetite: good, increased some Suidical thoughts: denies Homicidal thoughts: denies Recent stressors: wants to go to apartment versus snf Family support: says son not talking to her Aggressive Behavior: not aggressive, Ability to Perform ADL'sc: directed- reminded of staff, toilets self Psychotic sympstoms: perceptions not always correct Manic Symptoms: not present Living situation: between placements Illicit Drug usec: na Alcoholo use: na Tobacco use: na Family,PT,Surgical,&Current HX: (1) Bipolar 1 disorder, manic, moderate (2) Delusional disorder (3) Personality disorder in adult Anxity Symptoms: would like to be discharged Anger/Irritablility: denies Muscle Strength & Tone: WNL Gait & Station: Normal stance/post/gait Appearance: Disheveled Attitude & Behaviour: Cooperative/Pleasant Mood & Affect: Constricted Orientation: Disoriented to time, Disoriented to situation Attention/Concentration: Fair attention, Fair concentration Speech: Reg rate/vol/rhyth/prosod Judgement/Insight: Fair judgement, Poor insight Thought Process: Circumferential Language: Croatian Thought content/Abnormal/Psych: Delusions (perceptions not accurate consistently ) Fund of Knowledge: WNL Associations: Other Constitutional: None Neurological: None Psychiatric: Psychosis [place] I: delusional disorder, bipolar Assessment/Plan Assessment/Plan Plan Nursing: not aggressive, participated in group today only slept 6 hours, up the majority of the day, eating lunch eating breakfast, not incontinent of bowel in the last 24 hours social work: [facility] is reviewing her for placement son is durable poa, healthcare as well Patient my son would not allot me money for fun, she asks about the location/town of potential snf she prefers [place], is aware her behaviors led to facilities declining her- discharging her Vital Signs Date Time Temp Pulse Resp B/P (MAP) Pulse Ox O2 Delivery O2 Flow Rate FiO2 09/20/20 08:12 87 129/64 09/20/20 08:11 97.4 18 100 Allergies Coded Allergies Type Severity Reaction Last Updated Verified heparin Allergy Unknown 09/01/20 Yes Current Medications Medications (Trade) Dose Ordered Sig/Mary Jane PRN Reason Start Time Stop Time Status Last Admin Melatonin (Melatonin) 3 mg HS 09/18/20 21:00 10/18/20 20:59 09/19/20 20:25 Trazodone HCl (Desyrel) 50 mg HS PRN insomnia 09/18/20 21:00 10/18/20 20:59 09/18/20 22:01 psychotropics: olanzapine 15mg at 1500 melatonin 3mg hs trazodone 50mg prn, given 09/18/2019 depakote 375mg bid hydroxizine 25mg prn anxiety remeron 7.5 mg hs- stopped did not work summary: she does not easily gain new insights, she is more consistently acknowledging she was "naughty" review with her aggression, she asks about why she cannot go to an apartment, reviewed with her she does not initiate her own cares, often not knowing what time of day it is now - she asks which meal time its going to be next, 1. CONTINUE BEHAVIORAL HEALTH MANAGEMENT. Discharge to lower level of care when approved by snf/assisted living- she does require staff to remind her of routines, 2. CONTINUE CURRENT MEDICATIONS PRESCRIBED. 3. ALL PATIENT QUESTIONS ANSWERED RELATED TO MEDICATIONS, PLAN OF CARE, AND EXPECTED OUTCOMES. 4. SAFETY PLAN DISCUSSED. SALLY MANZANO NP Sep 20, 2020 14:36
[2020-09-20] MEDS: ATARAX PO SCH (14:50)
[2020-09-20] MEDS: ZYPREXA ZYDIS SL SCH (14:50)
--- NOTE | 2020-09-20 16:37 | NUR ---
PIRP: P: ALTERATION IN MOOD, ALTERATION IN THOUGHT PROCESS I: PROVIDE MEDICATIONS ORDERED BY PHYSICIAN. ENCOURAGE ATTENDANCE AND PARTICIPATION OF ALL GROUPS. ALLOW PATIENT TO VOICE FEELINGS AND CONCERNS. PROVIDE SAFE ENVIRONMENT. ASSISTED PATIENT FOR PREVENTION OF FALLS, SUPPLY PATIENT WITH NONSLIP SOCKS. MONITOR PATIENT FOR PSYCHOTIC SYMPTOMS AND REPORT TO PHYSICIANS. ASSESS PATIENT FOR DEPRESSION, ANXIETY AND SUICIDAL THOUGHTS. R: PATIENT HAS TAKEN ALL SCHEDULED MEDICATIONS ORDERED. SHE HAS PARTICIPATED IN GROUPS AND HAS BEEN CONFUSED BUT NOT AGITATED. SHE WANDERS THE HALLWAY AND FORGETS WHERE HER ROOM IS. PATIENT HAS REMAINED AWAKE MOST OF THE SHIFT AND HAS INTERACTED APPROPRIATELY WITH STAFF AND OTHER PATIENTS. SHE HAS MADE COMMENTS LIKE "i AM GOING TO [facility] BECAUSE NOONE ELSE WILL ACCEPT ME". PATIENT SEEMS TO COMPREHEND SITUATIONS BUT HER RECALL IS SHORT. SHE HAS NOT BEEN COMBATIVE THIS SHIFT AND HAS BEEN EASILY REDIRECTED. SHE HAS EATEN AND DRANK WELL. P: CONTINUE CURRENT PLAN OF CARE. POSSIBLE DISCHARGE BY END OF WEEK TO A ALF.
[2020-09-20 20:05] VITALS: BP 116/71
[2020-09-20] MEDS ORDERED: CRESTOR PO ONE (20:20)
[2020-09-20] MEDS: CRESTOR PO SCH (20:24)
[2020-09-20] MEDS: MELATONIN PO SCH (20:25)
[2020-09-20] MEDS: VITAMIN D PO SCH (20:27)
[2020-09-20] MEDS: LANTUS SQ SCH (21:00)
[2020-09-20] MEDS: TYLENOL PO PRN (23:28)
--- NOTE | 2020-09-21 05:32 | NUR ---
pirp- P- ALTERATION IN MOOD AND ALTERATION IN THOUGHT I- PROVIDE MEDICATION ORDERED,PROVIDE SAFE AND SUPPORTIVE ENVIRONMENT AND Q 15 MIN. MONITORING. PROVIDE CLAE AND SIMPLE INSTRUCTIONS. REORIENT AND REDIRECT NEEDED. R- PT. ORIENTED TO NAME AND MONTH NOT YEAR. RATED HER DEPRESSION AND ANXIETY 6. ATTENDED GROUP,ATE SNACKS,DIDN'T INITIATE INTERACTION BUT RESPONDED TO APPROACH. ENCOURAGED PT. TO TAKE A SHOWER BUT SHE REFUSED BUT DID AGREE TO TAKE SPONGE BATH AND WAS ASSISTED WITH THAT. TOOK MEDICATION ORDERED. PT. REQUIRES REDIRECTING AND REORIENTING AT TIMES DUE TO PT. FORGETFULNESS. HAS NOT EXHIBITED AGGRESSION THIS SHIFT PT. IS AWAKE AT THIS TIME AND HAS RESTED IN BED WITH EYES CLOSED FOR 4.5 HOURS THIS SHIFT. OF THIS TIME. P- WILL CONTINUE TO PROVIDE 1:1 INTERVENTION ALLOWING PT.TO EXPRESS THOUGHTS AND FEELINGS. REORIENT NEEDED. GIVE SIMPLE AND CLEAR INTERVENTION.
[2020-09-21] MEDS: LEVOTHYROXINE SODIUM PO SCH (06:13)
[2020-09-21] MEDS: ASPIRIN EC PO SCH (08:25)
[2020-09-21] MEDS: DEPAKOTE EC PO SCH ×2 (08:25→20:27)
[2020-09-21] MEDS: GLUCOPHAGE PO SCH ×2 (08:25→16:30)
[2020-09-21] MEDS: PEPCID PO SCH ×2 (08:25→20:26)
[2020-09-21] MEDS: NORVASC PO SCH (08:25)
--- NOTE | 2020-09-21 08:48 | NUR ---
PRECIOUS ACCEPTANCE: DEBBIE SAWANT CALLED THIS WORKER AT HOME ON 09/20/2019 WITH PT'S ACCEPTANCE. DEBBIE STATED SHE WOULD LOOK AT THE VAN SCHEDULE AND GET BACK TO THIS WORKER WITH A TIME THAT WOULD WORK FOR THEM IN THE NEXT DAY OR TWO. PAM FAXED [facility] AND IS CURRENTLY WAITING TO HEAR BACK FROM DEBBIE REGARDING VAN TIME. A FACE TO FACE ASSESSMENT IS SCHEDULED FOR TODAY 09/21/2019 AT 10AM. PAM TO CONTINUE TO FOLLOW
[2020-09-21 08:49] VITALS: BP 129/58
--- NOTE | 2020-09-21 10:11 | DIET.OP ---
Nutrition Asmt/Malnutrit 2-17 Actual Date of Review: Sep 21, 2020 Diagnosis: delusional disorder Pertinent Medical Hx/Surgical: DM-2, HTN, dementia, bipolar disorder, MDD, hypothyroidism. Subjective Information: telehealth f/u - pt accepted to SNF, expected to d/c there in the next few days. BG 118-151 mg/dl the last 4 days. No updated wt to assess- updated wt would be greatly appreciated Current Diet Order/Nutrition S: 1999 ar ADA Patient /S.O: Not Indicated Pertinent Meds Current Medications Medications (Trade) Dose Ordered Sig/Mary Jane PRN Reason Start Time Stop Time Status Last Admin Melatonin (Melatonin) 3 mg HS 09/18/20 21:00 10/18/20 20:59 09/20/20 20:25 Trazodone HCl (Desyrel) 50 mg HS PRN insomnia 09/18/20 21:00 10/18/20 20:59 09/18/20 22:01 Pertinent Labs Laboratory Tests Test 09/19/20 16:02 09/19/20 20:04 09/20/20 07:57 09/20/20 16:28 Bedside Glucose 113 151 119 136 Test 09/20/20 20:27 09/21/20 08:17 Bedside Glucose 124 118 Height (Feet): 5 Height (Inches): 9 Current Weight: 180 (estimated by staff) Recent Weight Change: No (unable to assess - no accurate wt) Weight Status: Overweight (per staff's estimated wt ) GI Symptoms: Last BM (09/19) Food Allergies: No Cultural/Ethnic/Sabianist Yaritza: none known Current %PO: Average 75% with many snacks - meeting needs BEE in Kcals: Use Current Weight Calories/Kcals/Kg: MSJ 1.2-1.4 Kcals Calculated: 9762-5296 kcal Protein: Use Current Weight Protein g/k.8-1g/kg Protein Calculated: 65-82g Fluid: ml: 9587-3688 ml or 1 ml/kcal Nutritional Problem: Nutr. Problems Present Problems: Altered nutrition related lab values Etiology: DM Signs/Symptoms: BG 118 - 151 mg/dl the last4 days. RD Comments: 1. Continue 1999 ar ADA diet, encouraging po intake. Small frequent meals and snacks. 2. Recommend offering Glucerna oral supplement if po intake is below 40% of meal. 3. Continue to monitor BG and correct as indicated. 4. Recommend a weight on the chair scale for better assessment of wt status. 5. RD to monitor po intake and weight. Diet education not appropriate at this time. Expected Outcomes 65-100% po intake of meals and snacks to meet estimated needs the next 3 days. met, continue discharge on consistent carb diet. Malnutrtion/Nutrition Risk Edu: No Notificiation Needed?: No Katy Dodson Sep 21, 2020 10:11
[2020-09-21] MEDS: ATARAX PO SCH (14:04)
[2020-09-21] MEDS: ZYPREXA ZYDIS SL SCH (14:04)
--- NOTE | 2020-09-21 14:55 | PRM.PN ---
Mood: pretty good, I am making jokes Sleep: 5 hours Appetite: i am starving, Suidical thoughts: denies laying in bed, will never be able to go home Homicidal thoughts: denies Recent stressors: no where to go, no one loves me, [place] is my home Family support: says son not talking to her Aggressive Behavior: not been aggressive Ability to Perform ADL'sc: takes self to [place], [place] a bit when urinate Psychotic sympstoms: is not knowing hx of when divorce, where she went to live Manic Symptoms: a bit more upbeat today Living situation: has house- we had together, Illicit Drug usec: na Alcoholo use: na Tobacco use: na Family,PT,Surgical,&Current HX: (1) Delusional disorder (2) Bipolar 1 disorder, manic, moderate (3) Personality disorder in adult Anxity Symptoms: ready to go home Anger/Irritablility: denies Muscle Strength & Tone: WNL Gait & Station: Normal stance/post/gait Appearance: Disheveled Attitude & Behaviour: Cooperative/Pleasant Mood & Affect: Blunted Orientation: Disoriented to time, Disoriented to situation Attention/Concentration: Fair attention, Fair concentration Speech: Reg rate/vol/rhyth/prosod Judgement/Insight: Fair judgement, Poor insight Thought Process: Circumferential Language: Macedonian Thought content/Abnormal/Psych: Delusions Fund of Knowledge: WNL Associations: Other Constitutional: None Neurological: None Psychiatric: Psychosis (perceptions not always accurate) [place] I: delusional disorder, bipolar [place] IV: between placements Assessment/Plan Assessment/Plan Plan Nursing: she has been good, good day yesterday participating- no, she will come out of her room and watch for a bit she had no interest in making jewelry today with staff eating well no aggression, at times appearing fairly oriented, then will ask where she is at, social work: [facility] accepts for next Sunday admission son is durable poa, healthcare as well Patient able to make conversation - says just always feel better when hair is nice and dressed neatly jokes about shopping [address], wanting tasteful hair colors, Vital Signs Date Time Temp Pulse Resp B/P (MAP) Pulse Ox O2 Delivery O2 Flow Rate FiO2 09/21/20 08:49 98.3 74 20 129/58 (81) 97 Room Air Allergies Coded Allergies Type Severity Reaction Last Updated Verified heparin Allergy Unknown 09/01/20 Yes Current Medications Medications (Trade) Dose Ordered Sig/Mary Jane PRN Reason Start Time Stop Time Status Last Admin Melatonin (Melatonin) 3 mg HS 09/18/20 21:00 10/18/20 20:59 09/20/20 20:25 Trazodone HCl (Desyrel) 50 mg HS PRN insomnia 09/18/20 21:00 10/18/20 20:59 09/18/20 22:01 psychotropics: olanzapine 15mg at 1500 melatonin 3mg hs trazodone 50mg prn, given 09/18/2019 depakote 375mg bid hydroxizine 25mg prn anxiety remeron 7.5 mg hs- stopped did not work summary: pleasant, does appear to be accepting and grieving she will stay in snf, - some dementia sx but not consistent with usual presentation, appears to retain some new information, 1. CONTINUE BEHAVIORAL HEALTH MANAGEMENT. Discharge to lower level of care when approved by snf/assisted living- Next Sunday Sudhir will to admit her 2. CONTINUE CURRENT MEDICATIONS PRESCRIBED. 3. ALL PATIENT QUESTIONS ANSWERED RELATED TO MEDICATIONS, PLAN OF CARE, AND EXPECTED OUTCOMES. 4. SAFETY PLAN DISCUSSED. SALLY MANZANO NP Sep 21, 2020 14:55
--- NOTE | 2020-09-21 16:08 | NUR ---
D/C UPDATE: [facility] WILL BE ABLE TO TAKE PT TENTATIVELY ON Sunday09/27/2020 AT 11 AM. GOAL AT THIS TIME IS TO DISCHARGE TO [facility] ON SUNDAY. SW TO CONTINUE TO FOLLOW.
--- NOTE | 2020-09-21 18:01 | NUR ---
PIRP: P: ALTERATION IN MOOD, ALTERATION IN THOUGHT PROCESS I: PROVIDE MEDICATIONS ORDERED BY PHYSICIAN. ENCOURAGE ATTENDANCE AND PARTICIPATION OF ALL GROUPS. ALLOW PATIENT TO VOICE FEELINGS AND CONCERNS. PROVIDE SAFE ENVIRONMENT. ASSISTED PATIENT FOR PREVENTION OF FALLS, SUPPLY PATIENT WITH NONSLIP SOCKS. MONITOR PATIENT FOR PSYCHOTIC SYMPTOMS AND REPORT TO PHYSICIANS. ASSESS PATIENT FOR DEPRESSION, ANXIETY AND SUICIDAL THOUGHTS. R: PATIENT HAS TAKEN ALL MEDICATIONS ORDERED.SHE HAS BEEN COOPERATIVE AND HAS BEEN AWAKE THE MAJORITY OF THE DAY. SHE DOES NOT PARTICIPATE IN GROUPS BUT WILL SIT IN DAY ROOM. SHE HAS WANDERED AND HAS BEEN CONFUSED AND HER RECALL IS POOR. P: PLANS FOR DISCHARGE SUNDAY TO [facility].
[2020-09-21] MEDS: TYLENOL PO PRN (18:33)
[2020-09-21 20:00] VITALS: BP 144/81
[2020-09-21] MEDS ORDERED: CRESTOR PO ONE (20:07)
--- NOTE | 2020-09-21 20:20 | NUR ---
behaviors AFTER THE FIRST UNSUCCESSFUL ATTEMPT TO DO ACCU CHECK , PT. REFUSED TO LET OPEN DEVELOPER OPERATOR TRY AGAIN AND PT. PUSHED OPEN DEVELOPER OPERATOR LIGHTLY WITH HER FOOT.AFTER ENCOURAGEMENT AND TEACHING BY TWO NURSES ON IMPORTANCE OF KNOWING WHAT HER BLOOD SUGAR READING IS , PT. DID ALLOW OPEN DEVELOPER OPERATOR TO DO THE ACCU CHECK AND APOLOGIZED FOR PUSHING OPEN DEVELOPER OPERATOR. PT. EXHIBITED FORGETFULNESS ASKING HOW DID SHE GET HERE AND WHERE IS SHE GOING TO BE GOING. PT. WAS REMINDED THAT THE PLAN IS FOR HER TO GO TO LIVE AT [facility] SUNDAY. PT.THEN WAS PLEASANT COOPERATIVE AND ATE SNACKS .
[2020-09-21] MEDS: LANTUS SQ SCH (20:23)
[2020-09-21] MEDS: CRESTOR PO SCH (20:26)
[2020-09-21] MEDS: MELATONIN PO SCH (20:27)
[2020-09-21] MEDS: VITAMIN D PO SCH (20:28)
--- NOTE | 2020-09-22 05:16 | NUR ---
pirp- P- ALTERATION IN MOOD AND ALTERATION IN THOUGHT PROCESS I- PROVIDE SAFE AND SUPPORTIVE ENVIRONMENT,PROVIDE MEDICATION ORDERED AND Q 15 MIN. MONITORING. REORIENT NEEDED. GIVE CLEAR AND SIMPLE DIRECTIONS. R- PT. RATED DEPRESSION 10 AND ANXIETY 3. ATTENDED GROUP,ATE SNACKS AND COUNTER TACKER PAINTED PT. FINGER NAILS. TOOK MEDICATION ORDERED. INITIATED INTERACTION WITH PEER. PT. EXHIBITED FORGETFULNESS AND REQUIRED REDIRECTING . PT. IS RESTING IN BED WITH EYES CLOSED FOR 5.50 HOURS OF THIS TIME . P- WILL CONTINUE TO PROVIDE 1:1 INTERVENTION ALLOWING PT. TO EXPRESS THOUGHTS AND FEELINGS. CONTINUE TO GIVE CLEAR AND SIMPLE INSTRUCTIONS. PROVIDE MEDICATION ORDERED BY PHYSICIAN.
[2020-09-22] MEDS: LEVOTHYROXINE SODIUM PO SCH (05:57)
[2020-09-22 07:28] VITALS: BP 116/60
[2020-09-22] MEDS: GLUCOPHAGE PO SCH ×3 (07:30→17:05)
--- NOTE | 2020-09-22 07:59 | NUR ---
METFORMIN NOT GIVEN PT NOT GIVEN METFORMIN THIS MORNING. SHE DID NOT GO EAT BREAKFAST.
[2020-09-22] MEDS: DEPAKOTE EC PO SCH ×2 (08:22→20:17)
[2020-09-22] MEDS: ASPIRIN EC PO SCH (08:22)
[2020-09-22] MEDS: PEPCID PO SCH ×2 (08:22→20:16)
[2020-09-22] MEDS: NORVASC PO SCH (08:22)
--- NOTE | 2020-09-22 09:12 | NUR ---
METFORMIN GIVEN PT GIVEN METFORMIN. PT GOT UP AND ATE BREAKFAST. FBGS WAS 129.
--- NOTE | 2020-09-22 13:31 | PRM.PN ---
Mood: I am tired, just up from a nap Sleep: 6 hours Appetite: I can eat, Nurse: "2 glass finisher salads for lunch" Suidical thoughts: denies Homicidal thoughts: denies Recent stressors: [facility] end, Family support: son doesn't want me, he is , grown kids Aggressive Behavior: says his is an asshole, a son is a son until he takes a Ability to Perform ADL'sc: takes herself to the toilet Psychotic sympstoms: memory in and out, Manic Symptoms: idea "going back to the street" Living situation: between placements, Illicit Drug usec: na Alcoholo use: na Tobacco use: na Family,PT,Surgical,&Current HX: (1) Delusional disorder (2) Bipolar 1 disorder, manic, moderate (3) Personality disorder in adult Anxity Symptoms: worried about placement, being kicked out Anger/Irritablility: annoyed, short comments Muscle Strength & Tone: WNL Gait & Station: Normal stance/post/gait Appearance: Disheveled Attitude & Behaviour: Cooperative/Pleasant (not pleasant but cooperative, initiating topics by her today), Poor eye contact Mood & Affect: Constricted Orientation: Disoriented to place, Disoriented to situation Attention/Concentration: Fair attention, Fair concentration Speech: Reg rate/vol/rhyth/prosod Judgement/Insight: Fair judgement, Poor insight Thought Process: Circumferential Language: Senegalese Thought content/Abnormal/Psych: Delusions Fund of Knowledge: WNL Associations: Other Constitutional: None Neurological: None Psychiatric: Psychosis [place] I: delusional disorder, bipolar [place] II: PD Assessment/Plan Assessment/Plan Plan Nursing: she has been well, she started crying today, fearful her son would yell at her, after some moments she requested to talk to him son was updated by nursing staff- as she decided she did not want to talk to him she has participated in group this morning, social work: son is supportive of skilled care, Vital Signs Date Time Temp Pulse Resp B/P (MAP) Pulse Ox O2 Delivery O2 Flow Rate FiO2 09/22/20 08:22 90 116/60 09/22/20 07:28 97.9 20 97 Room Air psychotropics: olanzapine 15mg at 1500 melatonin 3mg hs trazodone 50mg prn, given 09/18/2019 depakote 375mg bid hydroxizine 25mg prn anxiety remeron 7.5 mg hs- stopped did not work summary: today thought blocking, negative, feels son has not visited or checked on her, not very accepting when we tell her that is not true, she does not believe she told him to leave when he visited annoyed, irritable but does not become verbally or physically aggressive. 1. CONTINUE BEHAVIORAL HEALTH MANAGEMENT. Discharge to lower level of care when approved by snf/assisted living- Next Sunday [facility] will to admit her 2. CONTINUE CURRENT MEDICATIONS PRESCRIBED. 3. ALL PATIENT QUESTIONS ANSWERED RELATED TO MEDICATIONS, PLAN OF CARE, AND EXPECTED OUTCOMES. 4. SAFETY PLAN DISCUSSED. SALLY MANZANO NP Sep 22, 2020 13:31
--- NOTE | 2020-09-22 14:17 | NUR ---
TELEMED PT WAS SEEN BY Delma MANZANO NP. THERE WERE NO NEW ORDERS.
[2020-09-22] MEDS: ATARAX PO SCH (14:24)
[2020-09-22] MEDS: ZYPREXA ZYDIS SL SCH (14:24)
[2020-09-22] MEDS: TYLENOL PO PRN (17:06)
--- NOTE | 2020-09-22 18:30 | NUR ---
PIRP P: ALTERATION IN MOOD, CONFUSION I: Q15 MIN MONITORING, ASSESS FOR DEPRESSION/ANXIETY, ALTERNATE REST/ACTIVITY, PROVIDE 1:1 TO ENCOURAGE EXPRESSION OF FEELINGS, REDIRECT WITH VERBALIZATION, GIVE CLEAR AND SIMPLE INSTRUCTIONS, RE-ORIENT TO SURROUNDINGS NEEDED, PROVIDE SAFE AND SUPPORTIVE ENVIRONMENT R: PT HAS RESTLESS AFFECT THROUGHOUT SHIFT, HAS NOT EXHIBITED THREATENING OR COMBATIVE BEHAVIORS. HAS PARTICIPATED IN SOME GROUP ACTIVITIES WITH PROMPTING AND REDIRECTION. DENIES FEELINGS OF DEPRESSION, REPORTS FEELING ANXIOUS BECAUSE SHE "DOESN'T HAVE A HOME." PT IS FORGETFUL, BELIEVES SHE IS IN [place], AND REQUIRES FREQUENT RE-ORIENTATION TO UNIT AND ROOM. PT IS ABLE TO BE REDIRECTED WITH VERBALIZATION WITHOUT DIFFICULTY. TAKES MEDICATIONS ORDERED AND RESPONDS APPROPRIATELY TO APPROACH. NO HALLUCINATIONS OR DELUSIONS NOTED. P: INCLUDE PATIENT IN DISCHARGE PLANNING.
[2020-09-22 20:00] VITALS: BP 134/75
[2020-09-22] MEDS ORDERED: CRESTOR PO ONE (20:15)
[2020-09-22] MEDS: CRESTOR PO SCH (20:16)
[2020-09-22] MEDS: VITAMIN D PO SCH (20:16)
[2020-09-22] MEDS: MELATONIN PO SCH (20:18)
[2020-09-22] MEDS: LANTUS SQ SCH (20:22)
[2020-09-22] MEDS: DESYREL PO PRN (22:54)
--- NOTE | 2020-09-23 02:03 | NUR ---
PIRP- P- ALTERATION IN MOOD AND ALTERATION IN THOUGHT PROCESS I- PROVIDE SAFE AND SUPPORTIVE ENVIRONMENT,PROVIDE MEDICATION ORDERED AND Q 15 MIN. MONITORING. GIVE CLEAR AND SIMPLE INSTRUCTIONS. REORIENT AND REDIRECT NEEDED. R - PT. ORIENTED TO NAME AND MONTH NOT YEAR. RATED DEPRESSION AND ANXIETY 7. WAS ASSISTED WITH A SHOWER AND ATTENDED GROUP AND PARTICIPATED IN GROUP ACTIVITY. ATE SNACKS. INITIATED INTERACTION WITH STAFF AND PEER. TOOK MEDICATION ORDERED BY PHYSICIAN. PT. UP TO BR AND BACK TO BED AT THIS TIME. PT. C/O NOT BEING ABLE TO GO TO SLEEP ,WAS RESTLESS AND RECEIVED TRAZODONE AT 2205. P WILL CONTINUE TO PROVIDE 1:1 INTERVENTION ALLOWING PT. TO EXPRESS THOUGHTS AND FEELINGS. GIVE CLEAR AND SIMPLE INSTRUCTIONS. REDIRECT AND REORIENT PT. NEEDED.
[2020-09-23] MEDS: LEVOTHYROXINE SODIUM PO SCH (05:32)
--- NOTE | 2020-09-23 06:03 | NUR ---
REST OF THIS TIME PT. HAS RESTED WITH EYES CLOSED FOR 5.75 HOURS. Addendum: 09/23/20 at 0606 by Iram Dunn RN RN CORRECTION 6 HOURS THIS SHIFT
[2020-09-23 07:20] VITALS: BP 126/56
[2020-09-23 07:37] VITALS: BP 120/60
[2020-09-23] MEDS: GLUCOPHAGE PO SCH ×2 (09:25→16:43)
[2020-09-23] MEDS: NORVASC PO SCH (09:25)
[2020-09-23] MEDS: DEPAKOTE EC PO SCH ×2 (09:25→20:37)
[2020-09-23] MEDS: ASPIRIN EC PO SCH (09:25)
[2020-09-23] MEDS: PEPCID PO SCH ×2 (09:25→20:37)
--- NOTE | 2020-09-23 09:30 | PRM.PN ---
Mood: irritable Sleep: ok Appetite: ok Suidical thoughts: denies Homicidal thoughts: denies Recent stressors: being inpatient Family support: son Aggressive Behavior: denies Ability to Perform ADL'sc: some assistance Psychotic sympstoms: denies Manic Symptoms: denies Living situation: SNF Anxity Symptoms: about going home Anger/Irritablility: about being inpatient Appearance: Appears age stated Attitude & Behaviour: Good eye contact Mood & Affect: Euthymic/appr/congruent (irritable when talking about placement) Orientation: Disoriented to place, Disoriented to time, Disoriented to situation Attention/Concentration: Fair attention, Fair concentration Speech: Reg rate/vol/rhyth/prosod Judgement/Insight: Poor judgement, Poor insight Thought Process: Linear/goal directed Language: Chinese Thought content/Abnormal/Psych: None/normal Fund of Knowledge: Other (some memory deficits) Associations: WNL/Normal Associations Memory (recent and remote): Recent memory repaired, Remote memory repaired Constitutional: None Neurological: None Psychiatric: Anxious [place] I: Delusional Disorder, Neurocognitive Disorder Assessment/Plan Assessment/Plan Assessment/Plan Nursing: Spending most of her time in bed Does go to groups - easily redirected Got up today, went back to bed, now up and eating breakfast social work: son is supportive of skilled care, Patient: Patient aware of plan for her to discharge to [facility]. She because upset a bout being placed in a SNF, though she was in one prior to arrival to [facility]. She stated that [facility] was too far from her family (though closer than her last SNF). She expressed desire to live on her own, though when asked why she was originally placed in a SNF, she became guarded and did not want to discuss it. She was also at several SNFs previously, but they do not want her back 2/2 her behaviors. We discussed her concerns at length, and eventually patient stated that she would go to [facility]. Vital Signs Date Time Temp Pulse Resp B/P (MAP) Pulse Ox O2 Delivery O2 Flow Rate FiO2 09/22/20 08:22 90 116/60 09/22/20 07:28 97.9 20 97 Room Air psychotropics: olanzapine 15mg at 1500 melatonin 3mg hs trazodone 50mg prn, given 09/18/2019 depakote 375mg bid hydroxizine 25mg prn anxiety remeron 7.5 mg hs- stopped did not work Assessment: 70 yo F, unknown psych history, admitted to [facility] for worsening mood/aggression. Patient's mood has seemed better than when first admitted, no aggression since around the time she was admitted. Working on placement. Reviewed R/B/SEs of medications. PVU, agrees with plan. Plan 1. CONTINUE BEHAVIORAL HEALTH MANAGEMENT. Discharge to lower level of care when approved by snf/assisted living- Next Sunday [facility] will to admit her 2. CONTINUE CURRENT MEDICATIONS PRESCRIBED. 3. ALL PATIENT QUESTIONS ANSWERED RELATED TO MEDICATIONS, PLAN OF CARE, AND EXPECTED OUTCOMES. 4. SAFETY PLAN DISCUSSED. ALBA CROFT MD Sep 23, 2020 09:30
--- NOTE | 2020-09-23 10:00 | NUR ---
TREATMENT TEAM PT WAS SEEN BY DR. CROFT AND THE TREATMENT TEAM. PT IS AGITATED THAT SHE HAS TO BE DISCHARGED TO [facility]. WANTS TO JUST GET A APARTMENT AND HAVE ASSISTANCE COME DO MEAL ON WHEELS AND MY MEDS. DID TRY TO TALK TO PT ABOUT THIS. PT WANTED TO KNOW WHO TOOK HER RIGHTS AWAY. SAID SHE HAD 4 DAYS TILL LEAVING, IF FINDS SOMETHING ELSE WE CAN LOOK AT IT. PT SAID HAS NO PHONE OR NUMBERS. STAFF OFFERED ASSISTANCE. PT SAID NEVER MIND- YOU GOT WHAT YOU WANTED. NO NEW ORDERS
[2020-09-23] MEDS: TYLENOL PO PRN ×2 (14:15→22:22)
[2020-09-23] MEDS: ZYPREXA ZYDIS SL SCH (14:16)
[2020-09-23] MEDS: ATARAX PO SCH (14:16)
--- NOTE | 2020-09-23 15:08 | NUR ---
PIRP P-ALTERED THOUGHT PROCESS, DTO, ELOPEMENT RISK, RISK FOR FALLS I-Q 15 MINUTE CHECKS. PROVIDE SAFE ENVIRONMENT. MEDICATIONS DIRECTED BY THE PHYSICIAN. PROVIDE TASK ORIENTED ACTIVITIES, ENCOURAGE GROUP PARTICIPATION. RE ORIENT AND RE DIRECT WITH VERBALIZATION NEEDED. PROVIDE SIMPLE INSTRUCTIONS. 1:1 INTERVENTION TO ALLOW PT TO EXPRESS FEELINGS/THOUGHTS. ASSESS FOR DEPRESSION/ANXIETY, AND PSYCHOTIC SYMPTOMS. SI/HI. R-PT IS CHECKED EVERY 15 MINUTES FOR SAFETY. PT HAS TAKEN ALL MEDICATIONS DIRECTED BY THE PHYSICIAN. PT HAS BEEN ENCOURAGED TO PARTICIPATE IN GROUPS. PT IS RE ORIENTED AND RE DIRECTED EACH TIME SHE COMES TO STAFF ASKING FOR INFORMATION TO WHERE AT, WHY. PT GIVEN TIME TO TALK TO STAFF. PT DENIES SI/HI. NO HALLUCINATIONS OR DELUSIONS NOTED. PT VOICED NOT WANTING TO GO TO [facility] ON DISCHARGE. THIS AFTERNOON HAS CONTINUED TO ASK WHEN SHE IS LEAVING-WHY SHE CAN'T STAY HERE. ALL QUESTIONS ANSWERED AND EXPLAINED TO HER. PT HAS TALKED TO SON THIS AFTERNOON. P-CONT TO RE ORIENT AND RE DIRECT NEEDED. PROVIDE SAFE ENVIRONMENT
[2020-09-23 19:08] VITALS: BP 140/71
[2020-09-23] MEDS ORDERED: CRESTOR PO ONE (20:30)
[2020-09-23] MEDS: CRESTOR PO SCH (20:37)
[2020-09-23] MEDS: MELATONIN PO SCH (20:37)
[2020-09-23] MEDS: VITAMIN D PO SCH (20:38)
[2020-09-23] MEDS: DESYREL PO PRN (20:38)
--- NOTE | 2020-09-23 20:38 | NUR ---
PRN TRAZODONE PATIENT REPORTED SHE WANTED TO BE ABLE TO SLEEP GOOD TONIGHT, PRN TRAZODONE ADMINISTERED WITH [facility] MEDS.
[2020-09-23] MEDS: ULTRAM PO PRN (20:39)
[2020-09-23] MEDS: LANTUS SQ SCH (20:47)
--- NOTE | 2020-09-24 02:35 | NUR ---
P.I.R.P. P. ALTERATION IN THOUGHT PROCESS I. PROVIDE SAFE ENVIRONMENT, PROVIDE EVERY 15 MINUTE CHECKS, PROVIDE MEDICATIONS ORDERED PER MD , PROVIDE TASK ORIENTED GROUP ACTIVITY AND ENCOURAGE PARTICIPATION. PROVIDE 1:1 INTERVENTION TO ALLOW PATIENT TO EXPRESS FEELINGS . REDIRECT AND REORIENT NEEDED. R. PATIENT TOOK MEDS ORDERED, ATTENDED GROUP ACTIVITY X 2 THIS SHIFT, INTERACTED APPROPRIATELY WITH NEW CLIENT ON UNIT. DECLINED TO GET HER HAIR WASHED, RECEIVED PRN TRAMADOL FOR LOWER BACK PAIN, PRN TYLENOL FOR LEG DISCOMFORT AND PRN TRAZODONE FOR SLEEP. PATIENT REPORTED ANXIETY 5 ON SCALE AND FEELS IT IS DUE TO NOT KNOWING WHAT IS TAKING PLACE TOMORROW. EDUCATED PATIENT STAFF WOULD KEEP HER INFORMED OF DAILY ACTIVITIES. PATIENT VOICED DEPRESSION WAS UNABLE TO DETERMINE. DENIES HALLUCINATIONS. P. CONTINUE CURRENT PLAN OF CARE
--- NOTE | 2020-09-24 05:20 | NUR ---
INCONTINENCE PATIENT INCONTINENT OF URINE, URINATED IN THE CORNER IN HER ROOM THEN CAME TO NURSE DESK AND ASKED FOR HELP CHANGING CLOTHES.
[2020-09-24] MEDS: LEVOTHYROXINE SODIUM PO SCH (06:13)
[2020-09-24 07:20] VITALS: BP 126/56
[2020-09-24] MEDS: ASPIRIN EC PO SCH (08:44)
[2020-09-24] MEDS: NORVASC PO SCH (08:44)
[2020-09-24] MEDS: DEPAKOTE EC PO SCH ×2 (08:44→20:29)
[2020-09-24] MEDS: GLUCOPHAGE PO SCH ×2 (08:45→17:14)
[2020-09-24] MEDS: PEPCID PO SCH ×2 (08:45→20:29)
--- NOTE | 2020-09-24 13:46 | PRM.PN ---
Mood: irritable upon entry, smiling/gracious 15 minutes later at end Sleep: 5.5 hours with trazodone, Appetite: good Suidical thoughts: denies plans, hopeless yes Homicidal thoughts: denies Recent stressors: new snf Family support: son, Aggressive Behavior: short comments Ability to Perform ADL'sc: bathing- most of the time, Psychotic sympstoms: perceptions not accurate Manic Symptoms: labile - irritable, Living situation: between placements Illicit Drug usec: na Alcoholo use: na Tobacco use: na Family,PT,Surgical,&Current HX: (1) Bipolar 1 disorder, manic, moderate (2) Personality disorder in adult (3) Delusional disorder Anxity Symptoms: admits worried about new facility Anger/Irritablility: upon entering, wanted PT to work with her Muscle Strength & Tone: WNL Gait & Station: Normal stance/post/gait (some kyphosis ) Appearance: Well groomed/hygience Attitude & Behaviour: Cooperative/Pleasant, Hostile Mood & Affect: Full, Constricted Orientation: Disoriented to situation Attention/Concentration: Fair attention, Fair concentration Speech: Pressured (at first, then calms, smiles) Judgement/Insight: Fair judgement, Poor insight Thought Process: Circumferential Language: Serbian Thought content/Abnormal/Psych: Delusions (perceptions not always accurate) Fund of Knowledge: WNL Associations: Other Constitutional: None Neurological: None Psychiatric: Psychosis [place] I: delusional disorder, bipola Assessment/Plan Assessment/Plan Plan Nursing: has not been physically aggressive today, irritable, short today when coming in the conference room hx when irritable she has thrown her water, is irritable and requesting water today [place] Sunday - statements "just throwing her around" she has been taking medications, social work: son is supportive of skilled care, son wants to visit with her tomorrow patient: angry "I am hopeless, I have no choices, everything taken away from me" can only say how high, are you sure that's enough" I think this is modeled after [place], cause he's an asshole, he's can direct me, michelle did not do anything, Vital Signs Date Time Temp Pulse Resp B/P (MAP) Pulse Ox O2 Delivery O2 Flow Rate FiO2 09/24/20 08:44 74 128/56 1/8/21 07:20 98.0 16 97 Room Air psychotropics: olanzapine 15mg at 1500 melatonin 3mg hs trazodone 50mg prn, given 09/18/2019 depakote 375mg bid hydroxizine 25mg prn anxiety remeron 7.5 mg hs- stopped did not work summary: feels she would have been better off , walking in [employer], walking on [place], with my family, youngest brother his choice to not go to [facility], he always said there is no God, able to talk about hoahaoism grew up in, family adopted us, admits a bit un-nerving CONSENT: Consent was obtained by patient for telemedicine visit. Consent was obtained for the presence of staff member throughout encounter. Privacy was maintained throughout encounter PLAN: 1. CONTINUE BEHAVIORAL HEALTH MANAGEMENT. DISCHARGE TO SNF IN [place] ON SUNDAY; APPROVED FOR ADMISSION THEN 2. CONTINUE CURRENT MEDICATIONS PRESCRIBED. STAFF AGREEABLE WITH PLAN 3. ALL PATIENT QUESTIONS ANSWERED RELATED TO MEDICATIONS, PLAN OF CARE, AND EXPECTED OUTCOMES. 4. SAFETY PLAN DISCUSSED. 5. COVID 19 TEST for snf admission if requested 6. celexa 10mg po daily - start now for depressive sx 7. olanzapine 5mg now but daily at 1300 and 15mg 1900 more mood lability, irritability 8. valproic level, cmp, cbc Sunday morning (lipids and glucose monitoring have been done, unremarkable change secondary to olanzapine) 9 Behavioral modification suggestion for snf; if she becomes irritable/negative, it has appeared quite calming to talk to her of her hoahaoism, the hoahaoism she attended in [place] or the hoahaoism she attended with parents, SALLY MANZANO NP Sep 24, 2020 13:46
--- NOTE | 2020-09-24 14:25 | NUR ---
TELEMED PT WAS SEEN BY Delma MANZANO NP. RECEIVED ORDERS FOR LABS TOMORROW, TO CHANGE TIME/DOSE OF OLANZAPINE, AND START CELEXA, SEE EMR.
[2020-09-24] MEDS: ZYPREXA ZYDIS SL SCH ×2 (14:31→19:05)
[2020-09-24] MEDS: ATARAX PO SCH (14:31)
--- NOTE | 2020-09-24 18:12 | NUR ---
PIRP P: ALTERATION IN MOOD, CONFUSION I: ASSESS REASONS FOR DEPRESSION/ANXIETY, ASSESS FOR PSYCHOTIC SYMPTOMS, RE-ORIENT TO REALITY NEEDED, REDIRECT WITH VERBALIZATION, USE CALM REASSURING APPROACH, PROVIDE MEDICATION EDUCATION, GIVE MEDICATIONS ORDERED, ALTERNATE REST/ACTIVITY, PROVIDE 1:1 TO ENCOURAGE EXPRESSION OF FEELINGS, PROVIDE TASK-ORIENTED ACTIVITIES, INCLUDE PATIENT IN DISCHARGE PLANNING, REINFORCE RELAXATION TECHNIQUES R: PT HAS BRIGHT AFFECT MAJORITY OF SHIFT, BECOMES ANXIOUS AT TIMES, BUT HAS BEEN ABLE TO REDIRECT WITH VERBALIZATION. HAS NOT EXHIBITED THREATENING OR COMBATIVE BEHAVIORS, WANDERS AT TIMES, BUT HAS NOT BEEN EXIT-SEEKING. FREQUENTLY ASKS STAFF WHERE SHE IS, WHERE SHE IS GOING, AND WHY SHE IS HERE. EXHIBITS POOR SHORT TERM MEMORY. ALERT AND ORIENTED TO SELF, SOMETIMES ORIENTED TO MONTH AND YEAR. INITIALLY DENIED FEELINGS OF DEPRESSION IN A.M., BUT IN AFTERNOON VERBALIZED FEELING HOPELESS D/T LOSS OF INDEPENDENCE AND ABILITY TO LIVE ON HER OWN. PT DENIES SUICIDAL IDEATION/HOMICIDAL IDEATION, NO HALLUCINATIONS NOTED. EXHIBITS DELUSIONS AT TIMES R/T CONFUSION. PT HAS TAKEN MEDICATIONS ORDERED, IS COOPERATIVE WITH ADLS, AND IS COOPERATIVE WITH 1:1 ACTIVITIES. P: PROVIDE SAFE AND SUPPORTIVE ENVIRONMENT, RE-ORIENT TO SURROUNDINGS, GIVE CLEAR AND SIMPLE INSTRUCTIONS
[2020-09-24 19:00] VITALS: BP 146/83
[2020-09-24] MEDS ORDERED: CRESTOR PO ONE (20:27)
[2020-09-24] MEDS: MELATONIN PO SCH (20:29)
[2020-09-24] MEDS: VITAMIN D PO SCH (20:29)
[2020-09-24] MEDS: CRESTOR PO SCH (20:29)
[2020-09-24] MEDS: LANTUS SQ SCH (20:33)
[2020-09-24] MEDS: TYLENOL PO PRN (20:37)
[2020-09-24] MEDS: DESYREL PO PRN (23:34)
--- NOTE | 2020-09-25 01:29 | NUR ---
P.I.R.P. P. ALTERATION IN THOUGHT PROCESS I. PROVIDE SAFE ENVIRONMENT, EVERY 15 MINUTE CHECKS, REDIRECT AND RE ORIENT NEEDED, PROVIDE 1:1 INTERVENTION TO ALLOW PATIENT TO EXPRESS FEELINGS, PROVIDE MEDICATIONS ORDERED PER MD, PROVIDE TASK ORIENTED GROUP ACTIVITY AND ENCOURAGE PARTICIPATION. R. PATIENT TOOK ALL MEDS ORDERED, DID RECEIVE NEEDED TYLENOL FOR PAIN AND NEEDED TRAZODONE FOR SLEEP. PATIENT IS CURRENTLY SLEEPING, NO DISTRESS, HAS CHOSEN TO SPREAD HER BLANKET IN THE FLOOR AND SLEEP IN THE FLOOR SINCE 0100. APPEARS TO ATTENTION SEEK AT TIMES, HAS BEEN PLEASANT, NO BEHAVIORS. CONTINUES FORGETFUL, CONFUSED AT TIMES. EASILY REDIRECTED, DOES WANDER OUT OF HER ROOM AT TIMES ASKING FOR HELP MAKING HER BED. PATIENT VOICES SHE DOES HAVE ANXIETY ABOUT A 4, NOT ANXIOUS NOW ABOUT HER SON, UNABLE TO PUT DEPRESSION ON SCALE. DENIES SUICIDAL IDEATIONS, DENIES HALLUCINATIONS. P. CONTINUE CURRENT PLAN OF CARE
[2020-09-25] MEDS: LEVOTHYROXINE SODIUM PO SCH (05:45)
[2020-09-25 08:08] VITALS: BP 115/58
--- NOTE | 2020-09-25 08:21 | PRM.PN ---
Mood: good Sleep: 5 hours Appetite: breakfast was good, eggs, bread, Suidical thoughts: denies Homicidal thoughts: denies Recent stressors: does not deny adjustment to new snf maybe worrisome Family support: son Aggressive Behavior: denies Ability to Perform ADL'sc: wraps blanket around herself Psychotic sympstoms: not delusional this morning Manic Symptoms: able to relax Living situation: discharge to snf Illicit Drug usec: na Alcoholo use: na Tobacco use: na Family,PT,Surgical,&Current HX: (1) Bipolar 1 disorder, manic, moderate (2) Personality disorder in adult (3) Delusional disorder Anxity Symptoms: "pretty level" Anger/Irritablility: denied, not present this morning Muscle Strength & Tone: WNL Gait & Station: Normal stance/post/gait Appearance: Disheveled Attitude & Behaviour: Cooperative/Pleasant Mood & Affect: Full Orientation: Disoriented to situation Attention/Concentration: Fair attention, Fair concentration Speech: Reg rate/vol/rhyth/prosod Judgement/Insight: Fair judgement, Poor insight Thought Process: Circumferential Language: Guinean Thought content/Abnormal/Psych: Delusions Fund of Knowledge: WNL Associations: Other Constitutional: None Neurological: None Psychiatric: Psychosis [place] I: delusional, bipolar [place] IV: discharge to snf Assessment/Plan Assessment/Plan Plan Nursing: woke up ok this morning, is eating breakfast today, had labs drawn this morning last evening, attention seeking, was wanting to pull staff from patient her sleep is up and down, Trazodone, Tylenol were given last night, patient: I think so, lived through coming here, meeting new staff son coming to visit, "how awesome" she talked to him yesterday Laboratory Tests 09/24/20 16:48: Bedside Glucose 210H 09/24/20 19:10: Bedside Glucose 148H 09/25/20 08:00: Sodium Level 139, Potassium Level 4.0, Chloride Level 107.0, Carbon Dioxide Level 26.3, Anion Gap 9.7, Blood Urea Nitrogen 23H, Creatinine 1.07, Estimated GFR () 61.0, Est GFR (CKD-EPI)(Non-Afr Uruguayan) 50.4, BUN/Creatinine Ratio 21.0, Glucose Level 126H, Calcium Level 8.7, Total Bilirubin 0.3, Aspartate Amino Transf (AST/SGOT) 10, Alanine Aminotransferase (ALT/SGPT) 18, Alkaline Phosphatase 55, Total Protein 6.2L, Albumin 3.1L, Globulin 3.1, Albumin/Globulin Ratio 1.000, Valproic Acid (Depakene) Level 55 09/25/20 08:01: Bedside Glucose 114H social work: son is supportive of skilled care, son wants to visit with her tomorrow Vital Signs Date Time Temp Pulse Resp B/P (MAP) Pulse Ox O2 Delivery O2 Flow Rate FiO2 09/25/20 08:08 97.8 69 20 115/58 (77) 96 Room Air Current Medications Medications (Trade) Dose Ordered Sig/Mary Jane PRN Reason Start Time Stop Time Status Last Admin Citalopram Hydrobromide (CeleXA) 10 mg 0900 09/25/20 09:00 10/25/20 08:59 Olanzapine (Zyprexa Zydis) 5 mg 1300 09/24/20 14:30 10/24/20 14:29 09/24/20 14:31 Olanzapine (Zyprexa Zydis) 15 mg 1900 09/24/20 19:00 10/07/20 20:59 09/24/20 19:05 psychotropics: cialopram 10mg po daily olanzapine 15mg at 1900 and 5mg at 1300 melatonin 6 mg hs - increase to start 09/25/20 trazodone 50mg prn, given 09/24/2020 depakote 500mg daily morning and 375mg at night - change today hydroxizine 25mg prn anxiety remeron 7.5 mg hs- stopped did not work summary: this morning pleasant, consistently complies with taking medications, enjoyed her breakfast this morning, cuddles up in her blanket, is being positive, now enjoying her longer hair, no hopeless statements, sleep is not great, valproic level greatly reduced from 500bid to 375mgbid, may explain increased irritability in last days, but has not been aggressive orientation was poor yesterday, improved this morning, recalled what she had for breakfast, 5 minutes prior to coming to evaluation CONSENT: Consent was obtained by patient for telemedicine visit. Consent was obtained for the presence of staff member throughout encounter. Privacy was maintained throughout encounter PLAN: 1. CONTINUE BEHAVIORAL HEALTH MANAGEMENT. DISCHARGE TO [facility] IN [place] ON SUNDAY; APPROVED FOR ADMISSION THEN 2. CONTINUE CURRENT MEDICATIONS PRESCRIBED. STAFF AGREEABLE WITH PLAN 3. ALL PATIENT QUESTIONS ANSWERED RELATED TO MEDICATIONS, PLAN OF CARE, AND EXPECTED OUTCOMES. 4. SAFETY PLAN DISCUSSED. 5. COVID 19 TEST for snf admission if requested 6. valproic level down to to 50 today, increase day dose 500mg and 375mg 7. melatonin increase to 6mg at hs 8 Behavioral modification suggestion for snf; if she becomes irritable/negative, it has appeared quite calming to talk to her of her restorationism, the restorationism she attended in [place] or the restorationism she attended with parents, SALLY MANZANO NP Sep 25, 2020 08:21
[2020-09-25 08:22] LABS: BASOPHIL % 0.6 % (0.0-0.2); EOSINOPHIL # 0.1 10^3/uL (0.0-0.2); EOSINOPHIL % 0.7 % (0.0-5.0); LYMPHOCYTES # 2.34 10^3/uL1 (1.0-4.8); LYMPHOCYTES % 32.7 % (24.0-44.0); MEAN CORP HGB 28.9 pg (26-34); MONOCYTES # 0.8 10^3/uL (0.3-0.8); MONOCYTES % 11.5 % (5.0-12.0); NEUTROPHIL # 3.9 10^3/uL (1.8-7.7); NEUTROPHILS % 53.7 % (41.0-85.0); PLATELET COUNT 230 10^3/uL (150-400); RED CELL DISTRIBUTION WIDTH 14.5 % (11.5-14.5)
[2020-09-25 08:25] LABS: CALCIUM 8.7 mg/dL (8.4-10.5); CARBON DIOXIDE 26.3 mmol/L (20.0-32)
--- NOTE | 2020-09-25 08:45 | NUR ---
TELEMED APPOINTMENT WITH [facility] Pt HAD TELEMED APPOINTMENT WITH [facility]. [facility] CHANGED DOSE OF DEPAKOTE. DEPAKOTE DOSE CHANGED TO 500 MG DAILY AND 375 MG AT HS AND MELATONIN 6 MG HS.
[2020-09-25] MEDS: NORVASC PO SCH (08:59)
[2020-09-25] MEDS: CeleXA PO SCH (08:59)
[2020-09-25] MEDS: PEPCID PO SCH ×2 (08:59→20:54)
[2020-09-25] MEDS: DEPAKOTE ER PO SCH (08:59)
[2020-09-25] MEDS: ASPIRIN EC PO SCH (08:59)
[2020-09-25] MEDS: GLUCOPHAGE PO SCH ×2 (09:00→17:08)
[2020-09-25] MEDS: ZYPREXA ZYDIS SL SCH ×2 (12:35→18:58)
--- NOTE | 2020-09-25 13:42 | NUR ---
PHONE AND GLASSES SON WAS HERE TO VISIT WITH PT. SON ASKED FOR PTS PHONE AND COMMAND CENTER ANALYST. SAID HE NEEDED IT-WAS GOING TO GET PT A NEW PHONE. PT ALSO ASKED ABOUT PTS GLASSES. SECURITY BROUGHT UP PHONE AND COMMAND CENTER ANALYST. PT SON, KALEIGH PAREDES, GIVEN PHONE, COMMAND CENTER ANALYST AND GLASSES. SIGNED FOR THAT RECEIVED THE ITEMS ON PTS BELONGINGS SHEET.
[2020-09-25] MEDS: ULTRAM PO PRN ×2 (13:52→21:19)
[2020-09-25] MEDS: ATARAX PO SCH (13:52)
--- NOTE | 2020-09-25 16:53 | NUR ---
P.I.R.P P: ALTERATION IN THOUGHT PROCESS, CONFUSION, ANXIETY I: ADMINISTERED MEDICATIONS PER ORDERED. ENCOURAGED Pt TO PARTICIPATE IN GROUP ACTIVITES. ENCOURAGED PT TO VERBALIZE HER NEEDS. MONITORED PT FOR ANY CHANGES FOR DELUSION, PARANOID BEHAVIOR, ANXIETY, DEPRESSION, AND SUICIDAL IDEATION. COMPLETED 15 MINS CHECKS OR NEEDED. PROVIDED FALL PRECAUTIONS WITH NON SLIPPERY Socks WHILE WALKING IN ROOM. REORIENTED Pt TO HER ROOM AND NEEDED. R: Pt TOOK ALL HER MEDICATIONS PER ORDERED. Pt KEPT FORGETTING HER ROOM AND RESTROOM, Pt KEPT ASKING " WHERE AM I GOING", REORIENTED PT TO ROOM AND HER RESTROOM AND REASSURE THAT SHE IS GOING TO [facility]". Pt ATE WELL, DENIES ANY HALLUCINATIONS, DELUSIONS , SUICIDAL IDEATION AT THIS TIME. P: Pt WILL BE STARTING ON MELATONIN 6 MG AT HS FROM AND DEPAKOTE 500MG DAILY IN MORNING AND 375 MG AT HS.
[2020-09-25 19:15] VITALS: BP 140/79
[2020-09-25] MEDS ORDERED: CRESTOR PO ONE (20:48)
[2020-09-25] MEDS: CRESTOR PO SCH (20:52)
[2020-09-25] MEDS: DEPAKOTE SPRINKLE PO SCH (20:53)
[2020-09-25] MEDS: VITAMIN D PO SCH (20:53)
[2020-09-25] MEDS: MELATONIN PO SCH (20:53)
[2020-09-25] MEDS: LANTUS SQ SCH (21:00)
[2020-09-25] MEDS ORDERED: DEPAKOTE PO SCH (21:00)
[2020-09-25] MEDS: DESYREL PO PRN (22:34)
[2020-09-26] MEDS: TYLENOL PO PRN ×2 (00:25→19:33)
--- NOTE | 2020-09-26 05:32 | NUR ---
PIRP- P- ALTERATION IN MOOD AND ALTERATION IN THOUGHT PROCESS I- PROVIDE SAFE AND SUPPORTIVE ENVIRONMENT,PROVIDE MEDICATION ORDERED AND Q 15 MIN. MONITORING. GIVE CLEAR AND SIMPLE INSTRUCTIONS. R- PT. RATED ANXIETY 4 AND DENIED DEPRESSION. TOOK MEDICATION ORDERED. NO INAPPROPRIATE BEHAVIORS NOTED. ASSISTED PT. WITH SHOWER. ATTENDED GROUP,ATE SNACKS AND PARTICIPATED IN GROUP ACTIVITIES. INITIATED INTERACTION WITH STAFF AND PEER. PT. EXHIBITED SHORT TERM MEMORY LOSS. SHE DID NOT REMEMBER HER SON VISITED HER TODAY AND DOESN'T REMEMBER WHERE HER ROOM AND BR ARE. DOESN'T REMEMBER EATING OR TAKING MEDICATIONS. PT. WAS RESTLESS AND STATED SHE COULD NOT GO TO SLEEP AND REQUESTED MEDICATION TO HELP HER SLEEP AND RECEIVED TRAZODONE 50MG PO PRN AT 2234. AT 2119 PT. REQUESTED PAIN MED FOR LOWER BACK PAIN AND RECEIVED ULTRAM PO PRN .AT 0025 PT. REQUESTED AND REQUESTED AND RECEIVED TYLENOL 650 MG PO PRN . SHE STATED BACK PAIN WAS BETTER STILL HURTING. PT. RESTING IN BED WITH EYES CLOSED AT THIS TIME. P- PROVIDE 1:1 INTERVENTION ALLOWING PT. TO EXPRESS THOUGHTS AND FEELINGS. GIVE CLEAR AND SIMPLE DIRECTIONS AND REDIRECT AND REORIENT NEEDED.
[2020-09-26] MEDS: LEVOTHYROXINE SODIUM PO SCH (06:31)
[2020-09-26] MEDS: DEPAKOTE ER PO SCH (08:57)
[2020-09-26] MEDS: NORVASC PO SCH (08:57)
[2020-09-26] MEDS: GLUCOPHAGE PO SCH ×2 (08:57→15:37)
[2020-09-26] MEDS: PEPCID PO SCH ×2 (08:57→20:07)
[2020-09-26] MEDS: CeleXA PO SCH (08:58)
[2020-09-26] MEDS: ASPIRIN EC PO SCH (08:58)
[2020-09-26 09:04] VITALS: BP 125/53
--- NOTE | 2020-09-26 09:33 | PRM.PN ---
Mood: i don't know yet Sleep: 5.25 hours but then slept in., more like 9 hours Appetite: she will forget she has eaten Suidical thoughts: denies Homicidal thoughts: denies Recent stressors: denies Family support: son, visited yesterday Aggressive Behavior: not aggressive to staff Ability to Perform ADL'sc: agreed to shower last night, directed by staff Psychotic sympstoms: denies Manic Symptoms: not hyperactive, does not stay on task very long Living situation: between placements Family,PT,Surgical,&Current HX: (1) Bipolar 1 disorder, manic, moderate (2) Personality disorder in adult (3) Delusional disorder Anxity Symptoms: denies, just woke up Anger/Irritablility: denies Muscle Strength & Tone: WNL Gait & Station: Normal stance/post/gait Appearance: Disheveled (had been curled in her bed) Attitude & Behaviour: Good eye contact Mood & Affect: Full Orientation: Disoriented to time, Disoriented to situation Attention/Concentration: Fair attention, Fair concentration Speech: Reg rate/vol/rhyth/prosod Judgement/Insight: Fair judgement, Poor insight Thought Process: Circumferential Language: Sinhala Thought content/Abnormal/Psych: Delusions (have moments of saying things showing not oriented, memory recall not consistent) Fund of Knowledge: WNL Associations: Other Constitutional: None Neurological: None Psychiatric: Psychosis (perceptions often not accurate ) [place] I: delusional disorder, bipolar, dementia [place] IV: placement at snf Assessment/Plan Assessment/Plan Plan Nursin she was given Trazodone - she was able to sleep then, 1300 olanzapine has appeared very helpful - less type sx appropriate visit with son yesterday, she recognized son some, they had a good visit, February did not become angry patient: sleeping good, I don't know- visit with son, Laboratory Tests 09/24/20 16:48: Bedside Glucose 210H 09/24/20 19:10: Bedside Glucose 148H 09/25/20 08:00: Sodium Level 139, Potassium Level 4.0, Chloride Level 107.0, Carbon Dioxide Level 26.3, Anion Gap 9.7, Blood Urea Nitrogen 23H, Creatinine 1.07, Estimated GFR () 61.0, Est GFR (CKD-EPI)(Non-Afr Kenyan) 50.4, BUN/Creatinine Ratio 21.0, Glucose Level 126H, Calcium Level 8.7, Total Bili story 0.3, Aspartate Amino Transf (AST/SGOT) 10, Alanine Aminotransferase (ALT/SGPT) 18, Alkaline Phosphatase 55, Total Protein 6.2L, Albumin 3.1L, Globulin 3.1, Albumin/Globulin Ratio 1.000, Valproic Acid (Depakene) Level 55 09/25/20 08:01: Bedside Glucose 114H Vital Signs Date Time Temp Pulse Resp B/P (MAP) Pulse Ox O2 Delivery O2 Flow Rate FiO2 09/26/20 09:04 71 20 125/53 (77) 97 Room Air Current Medications Medications (Trade) Dose Ordered Sig/Mary Jane PRN Reason Start Time Stop Time Status Last Admin Citalopram Hydrobromide (CeleXA) 10 mg 0900 09/25/20 09:00 10/25/20 08:59 09/26/20 08:58 Divalproex Sodium (Depakote Sprinkle) 375 mg HS 09/25/20 21:00 10/25/20 20:59 09/25/20 20:53 Divalproex Sodium (Depakote Er) 500 mg 0900 09/25/20 09:00 10/25/20 08:59 09/26/20 08:57 Melatonin (Melatonin) 6 mg HS 09/25/20 21:00 10/25/20 20:59 09/25/20 20:53 Olanzapine (Zyprexa Zydis) 5 mg 1300 09/24/20 14:30 10/24/20 14:29 09/25/20 12:35 Olanzapine (Zyprexa Zydis) 15 mg 1900 09/24/20 19:00 10/07/20 20:59 09/25/20 18:58 psychotropics: cialopram 10mg po daily olanzapine 15mg at 1900 and 5mg at 1300 melatonin 6 mg hs - (her days and nights were messed up, keep for circadian rhythm) trazodone 50mg prn consistently being needed, schedule depakote 500mg daily morning and 375mg at night hydroxizine 25mg prn anxiety remeron 7.5 mg hs- stopped did not work summary: this morning, orientation not well, not recalling visit with son from yesterday, is calm, pleasant when we discuss or goodbyes for discharge tomorrow she does have memory- that she had climbed a fence at past snf, she reported today she needed to prove her athleticism, is knowing this as wrong today CONSENT: Consent was obtained by patient for telemedicine visit. Consent was obtained for the presence of staff member throughout encounter. Privacy was maintained throughout encounter PLAN: 1. CONTINUE BEHAVIORAL HEALTH MANAGEMENT. DISCHARGE TO SNF IN [place] ON SUNDAY; APPROVED FOR ADMISSION THEN 2. CONTINUE CURRENT MEDICATIONS PRESCRIBED. STAFF AGREEABLE WITH PLAN 3. ALL PATIENT QUESTIONS ANSWERED RELATED TO MEDICATIONS, PLAN OF CARE, AND EXPECTED OUTCOMES. 4. SAFETY PLAN DISCUSSED. 5. Schedule trazodone 50 mg daily at hs (since she has used the prn nightly) 6 Behavioral modification suggestion for snf; if she becomes irritable/negative, it has appeared quite calming to talk to her of her sikhism, the sikhism she attended in [place] or the sikhism she attended with parents, SALLY MANZANO NP Sep 26, 2020 09:33
--- NOTE | 2020-09-26 10:01 | DIET.OP ---
Nutrition Asmt/Malnutrit 2-17 Actual Date of Review: Sep 26, 2020 Diagnosis: delusional disorder Pertinent Medical Hx/Surgical: DM-2, HTN, dementia, bipolar disorder, MDD, hypothyroidism. Subjective Information: telehealth f/u - pt accepted to SNF, expected to d/c there tmr per MD note. Current Diet Order/Nutrition S: 1999 ar ADA Patient /S.O: Not Indicated Pertinent Meds 12 units of lantus daily 500 mg metformin BID 2,000 IU vit D pepcid Pertinent Labs BG 114-210 mg/dl the last 3 days. BUN 23 alb 3.1 - no change from 09/07 Height (Feet): 5 Height (Inches): 9 Current Weight: 180 (estimated by staff) Recent Weight Change: No (unable to assess - no accurate wt) Weight Status: Overweight (per staff's estimated wt ) Food Allergies: No Cultural/Ethnic/Jain Yaritza: none known Current %PO: Good(75-100%) BEE in Kcals: Use Current Weight Calories/Kcals/Kg: MSJ 1.2-1.4 Kcals Calculated: 3093-9736 kcal Protein: Use Current Weight Protein g/k.8-1g/kg Protein Calculated: 65-82g Fluid: ml: 3840-2853 ml or 1 ml/kcal Nutritional Problem: Nutr. Problems Present Problems: Altered nutrition related lab values Etiology: DM Signs/Symptoms: BG 114 - 210 mg/dl the last [address] Comments: 1. Continue 1999 ar ADA diet. Consistent intake of carbs for improved BG control. 2. Diet education - not appropriate 3. Continue to monitor BG and correct as indicated. Expected Outcomes 65-100% po intake of meals and snacks to meet estimated needs the next 3 days. met, continue discharge on consistent carb diet. Malnutrtion/Nutrition Risk Edu: No MD Notificiation Needed?: No Katy Dodson Sep 26, 2020 10:00
[2020-09-26] MEDS ORDERED: HYDR25TA PO (10:26)
[2020-09-26] MEDS ORDERED: OLAN5TAB5 SL ×2 (10:26)
[2020-09-26] MEDS ORDERED: DIVA125C2 PO (10:26)
[2020-09-26] MEDS ORDERED: CHOL10003 PO (10:26)
[2020-09-26] MEDS ORDERED: MELA3TAB31 PO (10:26)
[2020-09-26] MEDS ORDERED: DIVA500T4 PO (10:26)
[2020-09-26] MEDS ORDERED: TRAZ-163 PO (10:26)
[2020-09-26] MEDS ORDERED: CITA10TA8 PO (10:26)
--- NOTE | 2020-09-26 10:37 | NUR ---
Telemedicine Patient seen by Kyler Salazar NP, via telemedicine. Trazodone changed to scheduled at HS in anticipation of DC.
[2020-09-26] MEDS: ZYPREXA ZYDIS SL SCH ×2 (12:49→18:14)
--- NOTE | 2020-09-26 15:04 | NUR ---
PIRP P: ALTERED THOUGHT PROCESS; RISK FOR FALLS I: Q 15 Minute monitoring; Provide safe and supportive environment; Give clear and simple instructions; Provide reality orientation as needed; Provide medication as ordered with explanation of need/purpose; Provide 1:1 allowing expression of feelings/thoughts; Provide safety equipment; Assess for depression, anxiety, psychosis, SI/HI; Provide access to psychiatric professional daily at least 6 days a week R: Q 15 minute monitoring logged; floors clear of obstacles, unit well lit, all non-patient areas secure, exits locked; Patient reminders as needed, discussion of discharge plan; Patient able to follow instruction and to make her needs known; Has made it to her room and her bathroom with reminder; Ambulating in the hallway with a steady gait; Has been appropriate with staff and other patient; Patient wearing non-slip footwear for safety; reoriented to place, time and plan of care; Patient tends to go back to bed every chance she can get to sleep, up out of her room for snacks, lunch and supper; Denies depression and anxiety; no plan stated to hurt self or others; denies voices or visions P: Discharge to [facility] tomorrow 09/27/2020
[2020-09-26] MEDS: ATARAX PO SCH (15:37)
[2020-09-26 19:16] VITALS: BP 124/65
[2020-09-26] MEDS ORDERED: CRESTOR PO ONE (20:04)
[2020-09-26] MEDS: VITAMIN D PO SCH (20:07)
[2020-09-26] MEDS: DEPAKOTE SPRINKLE PO SCH (20:07)
[2020-09-26] MEDS: CRESTOR PO SCH (20:07)
[2020-09-26] MEDS: MELATONIN PO SCH (20:07)
[2020-09-26] MEDS: LANTUS SQ SCH (20:12)
[2020-09-26] MEDS ORDERED: DESYREL PO SCH (21:00)
--- NOTE | 2020-09-27 04:36 | NUR ---
pirp- P- ALTERATION IN THOUGHT PROCESS AND FALL RISK I- PROVIDE MEDICATION ORDERED,PROVIDE SAFE AND SUPPORTIVE ENVIRONMENT AND Q 15 MIN. MONITORING. PROVIDE REDIRECTING NEEDED. R- PT. RATED DEPRESSION 10 AND ANXIETY 2. ATTENDED GROUP,ATE SNACKS,INITIATED INTERACTION AND PARTICIPATED IN GROUP ACTIVITIES. PT. STATED SHE WAS GOING SOMEWHERE TO LIVE TOMORROW BUT SHE DID NOT REMEMBER WHERE. SHE DID NOT REMEMBER THAT HER SON CAME TO VISIT HER YESTERDAY. TOOK MEDICATION ORDERED. PT. REQUIRED REDIRECTING AT TIMES DUE TO FORGETFULNESS.PT. RECEIVED TYLENOL AT 1933 FOR LOWER BACK DISCOMFORT. PT. RESTING IN BED WITH EYES CLOSED AT THIS TIME. P- WILL CONTINUE TO PROVIDE 1:1 INTERVENTION ALLOWING PT. TO EXPRESS THOUGHTS AND FEELINGS.
[2020-09-27] MEDS: LEVOTHYROXINE SODIUM PO SCH (06:03)
[2020-09-27 07:31] VITALS: BP 129/76
[2020-09-27] MEDS: GLUCOPHAGE PO SCH (08:07)
[2020-09-27] MEDS: NORVASC PO SCH (08:07)
[2020-09-27] MEDS: ASPIRIN EC PO SCH (08:07)
[2020-09-27] MEDS: DEPAKOTE ER PO SCH (08:07)
[2020-09-27] MEDS: PEPCID PO SCH (08:07)
[2020-09-27] MEDS: CeleXA PO SCH (08:07)
[2020-09-27] MEDS ORDERED: ROSU10TA2 PO (09:52)
[2020-09-27] MEDS ORDERED: TRAZ-163 PO (09:52)
[2020-09-27] MEDS ORDERED: METF500T PO (09:54)
--- NOTE | 2020-09-27 11:31 | NUR ---
PRN MEDICATION PT GIVEN ZYPREXA 10 MG, PT EXHIBITING ANXIETY DUE TO THE DISCHARGE.
[2020-09-27] MEDS: ZYPREXA ZYDIS SL PRN (11:32)
--- NOTE | 2020-09-27 12:20 | NUR ---
DISCHARGE: PATIENT DISCHARGED TODAY TO BE ADMITTED TO [facility]. ALL BELONGINGS SENT WITH PATIENT. PATIENT ESCORTED OFF UNIT BY STEFF DUONG LVN, AND JOSE A MONTALVO CNA, AND SECURITY. PATIENT WAS CALM AND PLEASANT AT DISCHARGE. PATIENT'S SON KALEIGH NOTIFIED OF DISCHARGE.
[2020-09-27 12:52] VITALS: BP 129/76
== END 2020-09-27 12:20 | DRG 885 ==
LOC: EEVIPCON 15:08 → GP 15:08
PROVIDERS: ADMIT Psychiatry & Neurology Psychiatry; ATTEND Psychiatry & Neurology Psychiatry
DX: F22 Delusional disorders (principal); F31.9 Bipolar disorder, unspecified; E11.40 Type 2 diabetes mellitus with diabetic neuropathy, unspecified; I10 Essential (primary) hypertension; F03.90 Unspecified dementia, unspecified severity, without behavioral disturbance, psychotic disturbance, mood disturbance, and anxiety; E03.9 Hypothyroidism, unspecified; R41.9 Unspecified symptoms and signs involving cognitive functions and awareness; E78.00 Pure hypercholesterolemia, unspecified; F60.9 Personality disorder, unspecified; Z79.4 Long term (current) use of insulin; Z79.899 Other long term (current) drug therapy; Z88.8 Allergy status to other drugs, medicaments and biological substances; Z79.82 Long term (current) use of aspirin
CPT/HCPCS: 36415; 72170; 80048; 80053; 80061; 80164; 81000; 82306; 82948; 84443; 85025; 86592; 87077; 87086; 87186; 93005; 97150; 97166; 97530; G0378; J1815; J3490